=== PATIENT | male | born 1960 | race Caucasian/White ===

== ENCOUNTER 2016-02-23 14:11 | Emergency (ER) | payer SELFPAY ==
[~2016-02-23] VITALS: Ht 177.8 cm; Wt 68.0 kg
[~2016-02-23 14:11] MED LIST: HYDR-1231 PO; PRD20T PO; SULF1TAB35 PO
[2016-02-23 15:28] LABS: BASOPHILS # (AUTO) 0.1 10^3/uL (0.0-0.1); BASOPHILS % (AUTO) 1 % (0-10); EOSINOPHILS # (AUTO) 0.1 10^3/uL (0.0-0.3); EOSINOPHILS % (AUTO) 1 % (0-10); LYMPHOCYTES # (AUTO) 2.2 X 10^3 (1.0-4.0); LYMPHOCYTES % (AUTO) 34 % (12-44); MEAN CORPUSCULAR HEMOGLOBIN 31 PG (25-34); MEAN CORPUSCULAR HGB CONC 34 G/DL (32-36); MEAN CORPUSCULAR VOLUME 92 FL (80-99); MEAN PLATELET VOLUME 13.3 FL (7.4-10.4); MONOCYTES # (AUTO) 1.9 X 10^3 (0.0-1.0); MONOCYTES % (AUTO) 30 % (0-12); NEUTROPHILS # (AUTO) 2.1 X 10^3 (1.8-7.8); NEUTROPHILS % (AUTO) 34 % (42-75); PLATELET COUNT 212 10^3/uL (130-400); RED BLOOD COUNT 4.81 10^6/uL (4.35-5.85); RED CELL DISTRIBUTION WIDTH 14.7 % (10.0-14.5); WHITE BLOOD COUNT 6.3 10^3/uL (4.3-11.0)
--- NOTE | 2016-02-23 15:31 | Diagnostic Imaging Report ---
INDICATION: Cough, congestion. EXAMINATION: Portable erect AP chest at 3:08 p.m. COMPARISON: There are no prior studies available for comparison. FINDINGS: The heart size is within normal limits. The lungs are clear. There is no evidence for failure, pneumonia or for a pleural effusion to suggest an acute abnormality. The mediastinum is not widened. The osseous structures are intact. IMPRESSION: There is no evidence for an acute cardiopulmonary abnormality. Dictated by: Dictated on workstation # [id number]
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
[2016-02-23 15:44] LABS: BAND NEUTROPHILS 1 %; BASOPHILS % (MANUAL) 0 %; EOSINOPHILS % (MANUAL) 2 %; LYMPHOCYTES % (MANUAL) 39 %; NEUTROPHILS % (MANUAL) 36 %
[2016-02-23 15:47] LABS: ALANINE AMINOTRANSFERASE 76 U/L (0-55); ALBUMIN 3.7 G/DL (3.2-4.5); ANION GAP 11 MMOL/L (5-14); ASPARTATE AMINO TRANSFERASE 53 U/L (5-34); BILIRUBIN,TOTAL 0.5 MG/DL (0.1-1.0); BLOOD UREA NITROGEN 10 MG/DL (7-18); BUN/CREATININE RATIO 12; CALCIUM 8.7 MG/DL (8.5-10.1); CARBON DIOXIDE 21 MMOL/L (21-32); CHLORIDE 103 MMOL/L (98-107); CREATININE SERUM 0.82 MG/DL (0.60-1.30); GFR ESTIMATED > 60; GLUCOSE 106 MG/DL (70-105); POTASSIUM 4.1 MMOL/L (3.6-5.0); SODIUM 135 MMOL/L (135-145); TOTAL PROTEIN 7.2 G/DL (6.4-8.2)
[2016-02-23] MEDS ORDERED: AZIT250T PO (16:06)
[2016-02-23] MEDS ORDERED: AZITHROMYCIN 250 MG TAB (ZITHROMAX) PO ONE (16:15)
[2016-02-23 16:24] VITALS: BP 136/99
== END 2016-02-23 16:24 | disposition home or self-care (01) ==
LOC: EDUNIT# 14:11 → ER 14:13
DX: J06.9 Acute upper respiratory infection, unspecified (principal); R42 Dizziness and giddiness; F17.210 Nicotine dependence, cigarettes, uncomplicated
CPT/HCPCS: 36415; 71010; 80053; 85007; 85027

== ENCOUNTER 2016-11-14 10:58 | Inpatient (IN) | payer OTHER ==
[~2016-11-14] VITALS: Ht 177.8 cm; Wt 68.0 kg
[~2016-11-14 10:58] MED LIST changes: +AZIT250T PO
--- OUTSIDE RECORDS SUMMARY | 2016-11-14 11:04 | XMS REPORT ---
Author Author ROSA DORAN [facility] Address [address] [place] [address] Care Team Providers Care Television Presenter Name Role Phone ROSA DORAN Unavailable PROBLEMS Type Condition ICD9-CM Code [id number] Code Onset Dates Condition Status SNOMED Code Problem Schizoaffective disorder, depressive type F25.1 Active 05849651 Problem Low back pain M54.5 Active 425293772 Problem Attention deficit hyperactivity disorder (ADHD), predominantly inattentive type F90.0 Active 96745829 Problem Depressive disorder, not elsewhere classified F32.9 Active 74857887 Problem Panic disorder F41.0 Active 494402608 Problem Sebaceous cyst of penis N48.89 Active 728710100436642 Problem Unspecified psychosis F29 Active 68089935 ALLERGIES Unknown Allergies SOCIAL HISTORY No smoking Hx information available PLAN OF CARE VITAL SIGNS MEDICATIONS Medication Instructions Dosage Frequency Start Date End Date Duration Status Adderall 30 MG Orally 2 times a day 1 tablet 12h 17 Feb, 2016 28 days Active RESULTS No Results PROCEDURES No Known procedures IMMUNIZATIONS No Known Immunizations
--- OUTSIDE RECORDS SUMMARY | 2016-11-14 11:04 | XMS REPORT ---
Author ROSA Cardenas Organization [employer] Address Unknown Phone Unavailable Care Team Providers Care Emissions Inspector Name Role Phone ROSA DORAN CP Unavailable Allergies No Known Allergies Problems Problem Type Condition Code Onset Dates Condition Status Problem Unspecified psychosis F29 Active Problem Schizoaffective disorder, depressive type F25.1 Active Problem Depressive disorder, not elsewhere classified F32.9 Active Problem Panic disorder F41.0 Active Medications Medication Code System Code Instructions Start Date End Date Status Dosage Adderall [facility] [address]-50 30 MG Orally 2 times a day Jan 11, 2015 1 tablet Results No Known Results Summary Purpose [employer] Submission
--- OUTSIDE RECORDS SUMMARY | 2016-11-14 11:04 | XMS REPORT ---
Author Author ROSA DORAN [facility] Address [address] [place] [address] Care Team Providers Care Clinical Laboratory Aides Teacher Name Role Phone ROSA DORAN Unavailable PROBLEMS Type Condition ICD9-CM Code [id number] Code Onset Dates Condition Status SNOMED Code Problem Panic disorder F41.0 Active 606359059 Problem Low back pain M54.5 Active 978017519 Problem Attention deficit hyperactivity disorder (ADHD), predominantly inattentive type F90.0 Active 69528502 Problem Unspecified psychosis F29 Active 45417795 Problem Schizoaffective disorder, depressive type F25.1 Active 57215859 Problem Sebaceous cyst of penis N48.89 Active 546944455492252 Problem Depressive disorder, not elsewhere classified F32.9 Active 44786251 ALLERGIES Unknown Allergies SOCIAL HISTORY No smoking Hx information available PLAN OF CARE VITAL SIGNS MEDICATIONS Medication Instructions Dosage Frequency Start Date End Date Duration Status Adderall 30 MG Orally 2 times a day 1 tablet 12h 16 Jan, 2016 Active RESULTS No Results PROCEDURES No Known procedures IMMUNIZATIONS No Known Immunizations
--- OUTSIDE RECORDS SUMMARY | 2016-11-14 11:04 | XMS REPORT ---
Author Author ROSA DORAN [facility] Address [address] [place] [address] Care Team Providers Care Residential Property Consultant Name Role Phone ROSA DORAN Unavailable PROBLEMS Type Condition ICD9-CM Code OLH69-SC Code Onset Dates Condition Status SNOMED Code Problem Schizoaffective disorder, depressive type F25.1 Active 05920935 Problem Low back pain M54.5 Active 648994603 Problem Attention deficit hyperactivity disorder (ADHD), predominantly inattentive type F90.0 Active 03299048 Problem Depressive disorder, not elsewhere classified F32.9 Active 88428255 Problem Panic disorder F41.0 Active 268710788 Problem Sebaceous cyst of penis N48.89 Active 852471773865306 Problem Unspecified psychosis F29 Active 72247768 ALLERGIES Unknown Allergies SOCIAL HISTORY No smoking Hx information available PLAN OF CARE VITAL SIGNS MEDICATIONS Medication Instructions Dosage Frequency Start Date End Date Duration Status Tramadol HCl 50 mg Orally every 6 hrs 1 tablet as needed 6h Jan, 28 days Active RESULTS No Results PROCEDURES No Known procedures IMMUNIZATIONS No Known Immunizations
--- OUTSIDE RECORDS SUMMARY | 2016-11-14 11:04 | XMS REPORT ---
Author ROSA Cardenas Organization [employer] Address Unknown Phone Unavailable Care Team Providers Care Telephone Instrument Supervisor Name Role Phone ROSA DORAN CP Unavailable Allergies, Adverse Reactions, Alerts Substance Reaction Event Type Penicillin G Potassium Info Not Available Drug Allergy Problems Problem Type Condition Code Onset Dates Condition Status Problem Panic disorder F41.0 Active Assessment Attention deficit hyperactivity disorder (ADHD), predominantly inattentive type F90.0 Active Problem Schizoaffective disorder, depressive type F25.1 Active Assessment Low back pain M54.5 Active Assessment Sciatica, unspecified side M54.30 Active Medications Medication Code System Code Instructions Start Date End Date Status Dosage Adderall [facility] [address]-48 20 MG Orally Once a day Jan 11, 2015 1 tablet in the morning Tramadol HCl [facility] [address]-69 50 MG Orally every 6 hrs Jan 11, 2015 1 tablet as needed Cyclobenzaprine HCl [facility] [address]-27 10 MG Orally 2 times a day Feb 13, 2015 Mar 15, 2015 1 tablet Procedures Procedure Coding System Code Date Office Visit, Est Pt., Level 3 CPT-4 34502 Feb 13, 2015 Vital Signs Date/Time: Feb 13, 2015 Temperature 98.0 F Weight 163 lbs Height 70 in BMI 23.39 Index Blood Pressure Diastolic 74 mmHg Blood Pressure Systolic 138 mmHg Cardiac Monitoring Heart Rate 82 bpm Results No Known Results Summary Purpose [employer] Submission
--- OUTSIDE RECORDS SUMMARY | 2016-11-14 11:04 | XMS REPORT ---
Author Author ROSA DORAN Organization [employer] Address Unknown Phone Unavailable Care Team Providers Care Marinator Name Role Phone ROSA DORAN CP Unavailable Allergies, Adverse Reactions, Alerts Substance Reaction Event Type Penicillin G Potassium Info Not Available Drug Allergy Problems Problem Type Condition Code Onset Dates Condition Status Assessment Low back pain M54.5 Active Problem Depressive disorder, not elsewhere classified 311 Active Problem Impacted cerumen 380.4 Active Problem Hypoglycemia, unspecified 251.2 Active Problem Allergic rhinitis, cause unspecified 477.9 Active Problem Unspecified episodic mood disorder 296.90 Active Problem Lumbago 724.2 Active Problem Other and unspecified hyperlipidemia 272.4 Active Problem Chronic airway obstruction, not elsewhere classified 496 Active Problem Unspecified closed fracture of ankle 824.8 Active Assessment Mood disorder F39 Active Assessment ADHD (attention deficit hyperactivity disorder), inattentive type F90.0 Active Assessment Sciatica, unspecified side M54.30 Active Medications Medication Code System Code Instructions Start Date End Date Status Dosage Wellbutrin SR [facility] [address]-01 150 MG Orally Twice a day Dec 26, 2014 1 tablet Naproxen [facility] [address]-12 500 MG Orally every 12 hrs Dec 26, 2014 1 tablet as needed Cyclobenzaprine HCl [facility] [address]-22 10 MG Orally 2 times a day Dec 26, 2014 Jan 25, 2015 1 tablet Procedures Procedure Coding System Code Date Office Visit, Est Pt., Level 3 CPT-4 87162 Dec 26, 2014 Vital Signs Date/Time: Dec 26, 2014 Temperature 97.0 F Weight 147.4 lbs Height 70 in BMI 21.15 Index Blood Pressure Diastolic 76 mmHg Blood Pressure Systolic 124 mmHg Cardiac Monitoring Heart Rate 64 bpm Results No Known Results Summary Purpose [employer] Submission
--- OUTSIDE RECORDS SUMMARY | 2016-11-14 11:04 | XMS REPORT ---
Author ROSA Cardenas Organization [employer] Address Unknown Phone Unavailable Care Team Providers Care Survey Methodologist Name Role Phone ROSA DORAN CP Unavailable Allergies No Known Allergies Problems Problem Type Condition Code Onset Dates Condition Status Problem Unspecified psychosis F29 Active Problem Schizoaffective disorder, depressive type F25.1 Active Problem Depressive disorder, not elsewhere classified F32.9 Active Problem Panic disorder F41.0 Active Medications Medication Code System Code Instructions Start Date End Date Status Dosage Adderall [facility] [address]-01 30 MG Orally 2 times a day Jan 11, 2015 1 tablet Results No Known Results Summary Purpose [employer] Submission
--- OUTSIDE RECORDS SUMMARY | 2016-11-14 11:04 | XMS REPORT ---
Author ROSA Cardenas Organization [employer] Address Unknown Phone Unavailable Care Team Providers Care Printing Gray Cloth Tender Name Role Phone ROSA DORAN CP Unavailable Allergies No Known Allergies Problems Problem Type Condition Code Onset Dates Condition Status Problem Unspecified psychosis F29 Active Problem Schizoaffective disorder, depressive type F25.1 Active Problem Depressive disorder, not elsewhere classified F32.9 Active Problem Panic disorder F41.0 Active Medications Medication Code System Code Instructions Start Date End Date Status Dosage Adderall [facility] [address]-16 30 MG Orally 2 times a day Jan 11, 2015 1 tablet Results No Known Results Summary Purpose [employer] Submission
--- OUTSIDE RECORDS SUMMARY | 2016-11-14 11:04 | XMS REPORT ---
Author ROSA Cardenas Organization [employer] Address Unknown Phone Unavailable Care Team Providers Care Assistant Chief Of Police Name Role Phone ROSA DORAN CP Unavailable Allergies No Known Allergies Problems Problem Type Condition Code Onset Dates Condition Status Problem Panic disorder F41.0 Active Assessment Attention deficit hyperactivity disorder (ADHD), predominantly inattentive type F90.0 Active Problem Schizoaffective disorder, depressive type F25.1 Active Medications Medication Code System Code Instructions Start Date End Date Status Dosage Tramadol HCl [facility] [address]-24 50 MG Orally every 6 hrs Jan 11, 2015 1 tablet as needed Adderall [facility] [address]-91 20 MG Orally Once a day Jan 11, 2015 1 tablet in the morning Results No Known Results Summary Purpose [employer] Submission
--- OUTSIDE RECORDS SUMMARY | 2016-11-14 11:04 | XMS REPORT ---
Author Author ROSA DORAN [facility] Address [address] [place] [address] Care Team Providers Care Balance Truer Name Role Phone ROSA DORAN Unavailable PROBLEMS Type Condition ICD9-CM Code XAP49-VC Code Onset Dates Condition Status SNOMED Code Problem Depressive disorder, not elsewhere classified F32.9 Active 97889518 Problem Unspecified psychosis F29 Active 30534057 Problem Schizoaffective disorder, depressive type F25.1 Active 62660273 Problem Panic disorder F41.0 Active 914432675 ALLERGIES Unknown Allergies SOCIAL HISTORY No smoking Hx information available PLAN OF CARE VITAL SIGNS MEDICATIONS Medication Instructions Dosage Frequency Start Date End Date Duration Status Adderall 30 MG Orally 2 times a day 1 tablet 12h Jan, Active RESULTS No Results PROCEDURES No Known procedures IMMUNIZATIONS No Known Immunizations
--- OUTSIDE RECORDS SUMMARY | 2016-11-14 11:05 | XMS REPORT ---
Author Author ROSA DORAN [facility] Address [address] [place] [address] Care Team Providers Care Joint Yarner Name Role Phone ANDREEA ROSA Unavailable PROBLEMS Type Condition ICD9-CM Code FQU52-AY Code Onset Dates Condition Status SNOMED Code Problem Schizoaffective disorder, depressive type F25.1 Active 70149292 Problem Low back pain M54.5 Active 547194018 Problem Attention deficit hyperactivity disorder (ADHD), predominantly inattentive type F90.0 Active 21943061 Problem Depressive disorder, not elsewhere classified F32.9 Active 30721239 Problem Panic disorder F41.0 Active 736118007 Problem Sebaceous cyst of penis N48.89 Active 686637532262372 Problem Unspecified psychosis F29 Active 73572987 ALLERGIES No Information SOCIAL HISTORY Never Assessed PLAN OF CARE VITAL SIGNS MEDICATIONS Medication Instructions Dosage Frequency Start Date End Date Duration Status Doxycycline Hyclate 100 mg Orally every 12 hrs 1 tablet 12h Mar, Apr, 10 days Active RESULTS No Results PROCEDURES No Known procedures IMMUNIZATIONS No Known Immunizations MEDICAL (GENERAL) HISTORY Type Description Date Medical History Schizoaffective disorder, depressive type Medical History Panic disorder Medical History ADHD Surgical History facial reconstruction as a child Surgical History splenectomy Surgical History cleft pallet Hospitalization History surgeries Hospitalization History Pt. fell and hit head ER visit [facility] 05/08/15
--- OUTSIDE RECORDS SUMMARY | 2016-11-14 11:05 | XMS REPORT ---
Author Author ROSA DORAN [facility] Address [address] [place] [address] Care Team Providers Care Account Support Manager Name Role Phone ROSA DORAN Unavailable PROBLEMS Type Condition ICD9-CM Code WOI18-OG Code Onset Dates Condition Status SNOMED Code Problem Schizoaffective disorder, depressive type F25.1 Active 60075991 Problem Low back pain M54.5 Active 019795867 Problem Attention deficit hyperactivity disorder (ADHD), predominantly inattentive type F90.0 Active 29288067 Problem Depressive disorder, not elsewhere classified F32.9 Active 63864936 Problem Panic disorder F41.0 Active 087689448 Problem Sebaceous cyst of penis N48.89 Active 578219532424925 Problem Unspecified psychosis F29 Active 29408532 ALLERGIES Substance Reaction Event Type Date Status Penicillin V Potassium Unknown Drug Allergy Mar, Active SOCIAL HISTORY Never Assessed PLAN OF CARE VITAL SIGNS Height 70 in 2016-03-19 Weight 151.7 lbs 2016-03-19 Temperature 97.7 degrees Fahrenheit 2016-03-19 Heart Rate 70 bpm 2016-03-19 Respiratory Rate 18 2016-03-19 BMI 21.76 kg/m2 2016-03-19 Blood pressure systolic 134 mmHg 2016-03-19 Blood pressure diastolic 72 mmHg 2016-03-19 MEDICATIONS Medication Instructions Dosage Frequency Start Date End Date Duration Status Bactrim DS 800-160 MG Orally Twice a day 1 tablet 12h Mar, Apr, 28 days Active Tramadol HCl 50 mg Orally every 6 hrs 1 tablet as needed 6h Jan, 28 days Active Chlorzoxazone 500 MG Orally Three times a day 1 tablet 8h Active Vyvanse 60 mg Orally Once a day 1 capsule in the morning 24h Mar, Active RESULTS No Results PROCEDURES No Known [...]
--- OUTSIDE RECORDS SUMMARY | 2016-11-14 11:05 | XMS REPORT ---
Author Author ROSA DORAN [facility] Address [address] [place] [address] Care Team Providers Care Plastic Mould Maker Name Role Phone ROSA DORAN Unavailable PROBLEMS Type Condition ICD9-CM Code [id number] Code Onset Dates Condition Status SNOMED Code Problem Schizoaffective disorder, depressive type F25.1 Active 41376283 Problem Low back pain M54.5 Active 975618120 Problem Attention deficit hyperactivity disorder (ADHD), predominantly inattentive type F90.0 Active 55824009 Problem Depressive disorder, not elsewhere classified F32.9 Active 15169551 Problem Panic disorder F41.0 Active 758807955 Problem Sebaceous cyst of penis N48.89 Active 402350803742128 Problem Unspecified psychosis F29 Active 69026310 ALLERGIES No Information SOCIAL HISTORY Never Assessed PLAN OF CARE VITAL SIGNS MEDICATIONS Unknown Medications RESULTS Name Result Date Reference Range [employer] 2016-03-20 PROCEDURES Procedure Date Ordered Result Body Site No Charge Mar 20, 2016 IMMUNIZATIONS No Known Immunizations MEDICAL (GENERAL) HISTORY Type Description Date Medical History Schizoaffective disorder, depressive type Medical History Panic disorder Medical History ADHD Surgical History facial reconstruction as a child Surgical History splenectomy Surgical History cleft pallet Hospitalization History surgeries Hospitalization History Pt. fell and hit head ER visit [facility] 05/08/15
--- OUTSIDE RECORDS SUMMARY | 2016-11-14 11:05 | XMS REPORT ---
Author ROSA Cardenas Organization [employer] Address Unknown Phone Unavailable Care Team Providers Care Photography Instructor Name Role Phone ROSA DORAN CP Unavailable Allergies, Adverse Reactions, Alerts Substance Reaction Event Type Penicillin G Potassium Info Not Available Drug Allergy Problems Problem Type Condition Code Onset Dates Condition Status Assessment Bilateral low back pain with sciatica, sciatica laterality unspecified M54.40 Active Assessment ADHD (attention deficit hyperactivity disorder) F90.9 Active Assessment Mood disorder F39 Active Assessment Tobacco abuse Z72.0 Active Medications Medication Code System Code Instructions Start Date End Date Status Dosage Adderall [facility] [address]-35 10 MG Orally Once a day Jan 11, 2015 1 tablet in the morning Tramadol HCl [facility] [address]-02 50 MG Orally every 6 hrs Jan 11, 2015 1 tablet as needed Cyclobenzaprine HCl [facility] [address]-58 10 MG Orally 2 times a day Dec 26, 2014 Jan 25, 2015 1 tablet Procedures Procedure Coding System Code Date Office Visit, New Pt., Level 3 CPT-4 64162 Jan 11, 2015 Vital Signs Date/Time: Jan 11, 2015 Temperature 97.7 F Weight 155 lbs Height 70 in BMI 22.24 Index Blood Pressure Diastolic 76 mmHg Blood Pressure Systolic 130 mmHg Cardiac Monitoring Heart Rate 76 bpm Results No Known Results Summary Purpose [employer]Works Submission
--- OUTSIDE RECORDS SUMMARY | 2016-11-14 11:05 | XMS REPORT ---
Author ROSIBEL Santana [facility] [employer] Address Unknown Phone Unavailable Care Team Providers Care Paper Bag Machine Operator Name Role Phone ROSIBEL BAUMAN Unavailable Allergies No Known Allergies Problems Problem Type Condition Code Onset Dates Condition Status Problem Panic disorder F41.0 Active Assessment Schizoaffective disorder, depressive type F25.1 Active Problem Schizoaffective disorder, depressive type F25.1 Active Assessment Panic disorder F41.0 Active Medications No Known Medications Procedures Procedure Coding System Code Date Psychotherapy, patient &/family, 45 minutes, established patient CPT-4 75744 Feb 13, 2015 Results No Known Results Summary Purpose [employer]Works Submission
--- OUTSIDE RECORDS SUMMARY | 2016-11-14 11:05 | XMS REPORT ---
Author ROSA Cardenas Organization [employer] Address Unknown Phone Unavailable Care Team Providers Care Oncology Consultant Name Role Phone ROSA DORAN CP Unavailable Allergies No Known Allergies Problems Problem Type Condition Code Onset Dates Condition Status Problem Panic disorder F41.0 Active Problem Schizoaffective disorder, depressive type F25.1 Active Medications Medication Code System Code Instructions Start Date End Date Status Dosage Adderall [facility] [address]-54 30 MG Orally 2 times a day Jan 11, 2015 1 tablet Results No Known Results Summary Purpose [employer]Works Submission
--- OUTSIDE RECORDS SUMMARY | 2016-11-14 11:05 | XMS REPORT ---
Author Author ROSA DORAN [facility] Address [address] [place] [address] Care Team Providers Care Room Worker Name Role Phone ROSA DORAN Unavailable PROBLEMS Type Condition ICD9-CM Code [id number] Code Onset Dates Condition Status SNOMED Code Problem Schizoaffective disorder, depressive type F25.1 Active 99938673 Problem Low back pain M54.5 Active 726212397 Problem Attention deficit hyperactivity disorder (ADHD), predominantly inattentive type F90.0 Active 53866515 Problem Depressive disorder, not elsewhere classified F32.9 Active 82798785 Problem Panic disorder F41.0 Active 738507605 Problem Sebaceous cyst of penis N48.89 Active 533087312186924 Problem Unspecified psychosis F29 Active 67050813 ALLERGIES No Information SOCIAL HISTORY Never Assessed PLAN OF CARE VITAL SIGNS MEDICATIONS Medication Instructions Dosage Frequency Start Date End Date Duration Status Vyvanse 60 mg Orally Once a day 1 capsule in the morning 24h Apr, 28 days Active RESULTS No Results PROCEDURES [...]
--- OUTSIDE RECORDS SUMMARY | 2016-11-14 11:05 | XMS REPORT ---
Author Author ROSA DORAN [facility] Address [address] [place] [address] Care Team Providers Care Radio Assembler Name Role Phone ANDREEA ROSA Unavailable PROBLEMS Type Condition ICD9-CM Code [id number] Code Onset Dates Condition Status SNOMED Code Problem Schizoaffective disorder, depressive type F25.1 Active 56529314 Problem Low back pain M54.5 Active 323329468 Problem Attention deficit hyperactivity disorder (ADHD), predominantly inattentive type F90.0 Active 07641205 Problem Depressive disorder, not elsewhere classified F32.9 Active 49471107 Problem Panic disorder F41.0 Active 701314346 Problem Sebaceous cyst of penis N48.89 Active [id number] Problem Unspecified psychosis F29 Active 42269827 ALLERGIES No Information SOCIAL HISTORY Never Assessed [...]
--- OUTSIDE RECORDS SUMMARY | 2016-11-14 11:05 | XMS REPORT ---
Author ROSIBEL Santana [facility] e[employer] Address Unknown Phone Unavailable Care Team Providers Care Campus Security Officer Name Role Phone ROSIBEL BAUMAN Unavailable Allergies No Known Allergies Problems Problem Type Condition Code Onset Dates Condition Status Problem Panic disorder F41.0 Active Assessment Schizoaffective disorder, depressive type F25.1 Active Problem Schizoaffective disorder, depressive type F25.1 Active Assessment Panic disorder F41.0 Active Medications Medication Code System Code Instructions Start Date End Date Status Dosage Adderall [facility] [address]-83 10 MG Orally Once a day Jan 11, 2015 1 tablet in the morning Tramadol HCl [facility] [address]-20 50 MG Orally every 6 hrs Jan 11, 2015 1 tablet as needed Procedures Procedure Coding System Code Date Psych diagnostic evaluation, established patient CPT-4 24801 Feb 05, 2015 Results No Known Results Summary Purpose [employer] Submission
--- OUTSIDE RECORDS SUMMARY | 2016-11-14 11:05 | XMS REPORT ---
Author AIRAM García [facility] e[employer] Address Unknown Phone Unavailable Care Team Providers Care Therapy Tech Name Role Phone AIRAM MEHTA CP Unavailable Allergies No Known Allergies Problems Problem Type Condition Code Onset Dates Condition Status Problem Panic disorder F41.0 Active Problem Schizoaffective disorder, depressive type F25.1 Active Medications No Known Medications Results No Known Results Summary Purpose [employer]ClinicalWorks Submission
--- OUTSIDE RECORDS SUMMARY | 2016-11-14 11:05 | XMS REPORT ---
Author ROSA Cardenas Organization [employer] Address Unknown Phone Unavailable Care Team Providers Care Box Inspector Name Role Phone ROSA DORAN CP Unavailable Allergies No Known Allergies Problems Problem Type Condition Code Onset Dates Condition Status Problem Unspecified psychosis F29 Active Problem Schizoaffective disorder, depressive type F25.1 Active Problem Depressive disorder, not elsewhere classified F32.9 Active Problem Panic disorder F41.0 Active Medications Medication Code System Code Instructions Start Date End Date Status Dosage Adderall [facility] [address]-55 30 MG Orally 2 times a day Jan 11, 2015 1 tablet Tramadol HCl [facility] [address]-66 50 MG Orally every 6 hrs Jan 11, 2015 1 tablet as needed Results No Known Results Summary Purpose eClinicalWorks Submission
[2016-11-14] MEDS ORDERED: NS IV 1000 ML 1,000 ML IV ONE ×2 (11:43→14:03)
[2016-11-14] MEDS ORDERED: ONDANSETRON 4 MG/2 ML (SDV) Z0FRAN IVP ONE (11:45)
[2016-11-14] MEDS ORDERED: DIAZEPAM INJ 10 MG/2 ML (VALIUM) SYR IV ONE (11:45)
[2016-11-14 11:52] LABS: BASOPHILS % (AUTO) 0 % (0-10); EOSINOPHILS # (AUTO) 0.1 10^3/uL (0.0-0.3); EOSINOPHILS % (AUTO) 1 % (0-10); LYMPHOCYTES # (AUTO) 1.7 X 10^3 (1.0-4.0); LYMPHOCYTES % (AUTO) 13 % (12-44); MEAN CORPUSCULAR HEMOGLOBIN 31 PG (25-34); MEAN CORPUSCULAR HGB CONC 33 G/DL (32-36); MEAN CORPUSCULAR VOLUME 93 FL (80-99); MEAN PLATELET VOLUME 13.8 FL (7.4-10.4); MONOCYTES # (AUTO) 0.9 X 10^3 (0.0-1.0); MONOCYTES % (AUTO) 7 % (0-12); NEUTROPHILS # (AUTO) 10.1 X 10^3 (1.8-7.8); NEUTROPHILS % (AUTO) 79 % (42-75); PLATELET COUNT 226 10^3/uL (130-400); RED BLOOD COUNT 5.42 10^6/uL (4.35-5.85); RED CELL DISTRIBUTION WIDTH 14.2 % (10.0-14.5); WHITE BLOOD COUNT 12.9 10^3/uL (4.3-11.0)
[2016-11-14 12:07] LABS: ALANINE AMINOTRANSFERASE 26 U/L (0-55); ALBUMIN 4.6 GM/DL (3.2-4.5); ALCOHOL < 10 MG/DL (<10); ANION GAP 9 MMOL/L (5-14); ASPARTATE AMINO TRANSFERASE 33 U/L (5-34); BILIRUBIN,TOTAL 0.7 MG/DL (0.1-1.0); BLOOD UREA NITROGEN 13 MG/DL (7-18); BUN/CREATININE RATIO 13; CALCIUM 10.1 MG/DL (8.5-10.1); CARBON DIOXIDE 28 MMOL/L (21-32); CHLORIDE 102 MMOL/L (98-107); CREATININE SERUM 1.02 MG/DL (0.60-1.30); GFR ESTIMATED > 60; GLUCOSE 117 MG/DL (70-105); LIPASE 11 U/L (8-78); POTASSIUM 4.2 MMOL/L (3.6-5.0); SODIUM 139 MMOL/L (135-145); TOTAL PROTEIN 9.2 GM/DL (6.4-8.2)
[2016-11-14] MEDS ORDERED: TRAM50TA2 PO (12:08)
[2016-11-14] MEDS ORDERED: DEXT30TA12 PO (12:08)
[2016-11-14 12:46] VITALS: BP 146/92
[2016-11-14] MEDS ORDERED: NS 100 ML (IVPB) BAG IV ONE (13:00)
[2016-11-14] MEDS ORDERED: IOHEXOL 350 MG/ML 100 ML (OMNIPAQUE 350) VIAL IV ONE (13:00)
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
--- NOTE | 2016-11-14 13:41 | Diagnostic Imaging Report ---
PROCEDURE: CT abdomen and pelvis with contrast. TECHNIQUE: Multiple contiguous axial images were obtained through the abdomen and pelvis after administration of intravenous contrast. INDICATION: Abdominal pain. There are no prior studies available for comparison. There are numerous dilated gas and fluid-filled segments of small bowel present. This does suggest a small bowel obstruction. The precise transition point is not certain but I suspect it is in the distal small bowel. If further study is desired, a contrast small bowel exam would be recommended. There is some fluid and gas in the colon. The stomach itself is only partially filled with fluid and gas. There are numerous small gallstones within the gallbladder. There may be a trace amount of fluid about the gallbladder. There is no sign of an acute cholecystitis however. The liver, adrenals, kidneys, pancreas, aorta and inferior vena cava show no sign of an acute abnormality. There is a roughly 3 CM cyst associated with the right kidney. This cyst has a generally benign appearance. By history the spleen is surgically absent. The appendix was not well-visualized. The urinary bladder and prostate gland are grossly unremarkable. The bone windows show post traumatic change involving the left ilium. There is no acute bony abnormality noted. The lung bases are clear. IMPRESSION: 1. The findings do suggest a small bowel obstruction. Recommendations as above. 2. There is no acute abnormality of the abdomen or pelvis otherwise. 3. There is cholelithiasis without acute cholecystitis. 4. The spleen is surgically absent. 5. There are post traumatic changes involving the left ilium. 6. These results were discussed with LINO Soriano. Dictated by: Dictated on workstation # [id number]
[2016-11-14] MEDS ORDERED: fentaNYL INJECTION 100 MCG/2 ML AMP IV PRN (15:45)
[2016-11-14] MEDS ORDERED: ONDANSETRON 4 MG/2 ML (SDV) Z0FRAN IV PRN (15:45)
[2016-11-14] MEDS ORDERED: PROMETHAZINE INJ 25 MG/ML (PHENERGAN) AMP IV PRN (15:45)
[2016-11-14] MEDS ORDERED: KETOROLAC 30 MG/ML VIAL IV PRN (15:45)
[2016-11-14] MEDS ORDERED: CATHETER FLUSH 10 ML SYR IV PRN (15:45)
[2016-11-14] MEDS ORDERED: DIAZEPAM INJ 10 MG/2 ML (VALIUM) SYR IV PRN (15:45)
[2016-11-14] MEDS: NS IV 1000 ML 1,000 ML IV SCH ×2 (16:14→20:46)
[2016-11-14 16:20] VITALS: BP 166/92
[2016-11-14] MEDS: FAMOTIDINE 20MG/2ML IV (PEPCID) IV SCH (16:30)
[2016-11-14 20:57] VITALS: BP 126/79
[2016-11-14 23:03] LABS: BILIRUBIN,URINE NEGATIVE (NEGATIVE); KETONES,URINE 2+ (NEGATIVE); LEUKOCYTE ESTERASE ,URINE NEGATIVE (NEGATIVE); NITRITE,URINE NEGATIVE (NEGATIVE); PH,URINE 5 (5-9); PROTEIN,URINE NEGATIVE (NEGATIVE); UROBILINOGEN,URINE NORMAL (NORMAL)
[2016-11-14 23:11] LABS: WBC,URINE RARE /HPF
[2016-11-15] VITALS: BP 144/74
[2016-11-15 04:00] VITALS: BP 144/73
[2016-11-15] MEDS: NS IV 1000 ML 1,000 ML IV SCH (04:09)
[2016-11-15] MEDS: FAMOTIDINE 20MG/2ML IV (PEPCID) IV SCH (04:09)
[2016-11-15 05:30] LABS: BASOPHILS # (AUTO) 0.1 10^3/uL (0.0-0.1); BASOPHILS % (AUTO) 0 % (0-10); EOSINOPHILS # (AUTO) 0.4 10^3/uL (0.0-0.3); EOSINOPHILS % (AUTO) 3 % (0-10); LYMPHOCYTES # (AUTO) 3.1 X 10^3 (1.0-4.0); LYMPHOCYTES % (AUTO) 27 % (12-44); MEAN CORPUSCULAR HEMOGLOBIN 31 PG (25-34); MEAN CORPUSCULAR HGB CONC 33 G/DL (32-36); MEAN CORPUSCULAR VOLUME 95 FL (80-99); MONOCYTES # (AUTO) 1.5 X 10^3 (0.0-1.0); MONOCYTES % (AUTO) 13 % (0-12); NEUTROPHILS # (AUTO) 6.6 X 10^3 (1.8-7.8); NEUTROPHILS % (AUTO) 57 % (42-75); PLATELET COUNT 199 10^3/uL (130-400); RED BLOOD COUNT 4.49 10^6/uL (4.35-5.85); RED CELL DISTRIBUTION WIDTH 14.2 % (10.0-14.5); WHITE BLOOD COUNT 11.6 10^3/uL (4.3-11.0)
[2016-11-15 05:47] LABS: ALANINE AMINOTRANSFERASE 19 U/L (0-55); ALBUMIN 3.3 GM/DL (3.2-4.5); ANION GAP 9 MMOL/L (5-14); ASPARTATE AMINO TRANSFERASE 22 U/L (5-34); BILIRUBIN,TOTAL 0.8 MG/DL (0.1-1.0); BLOOD UREA NITROGEN 14 MG/DL (7-18); BUN/CREATININE RATIO 17; CALCIUM 8.5 MG/DL (8.5-10.1); CARBON DIOXIDE 22 MMOL/L (21-32); CHLORIDE 108 MMOL/L (98-107); CREATININE SERUM 0.84 MG/DL (0.60-1.30); GFR ESTIMATED > 60; GLUCOSE 73 MG/DL (70-105); SODIUM 139 MMOL/L (135-145); TOTAL PROTEIN 6.3 GM/DL (6.4-8.2)
[2016-11-15] MEDS ORDERED: INFLUENZA TRIvalent 2017-2018 0.5 ML/45 MCG SYR IM ONE ×2 (07:30→09:56)
[2016-11-15 08:00] VITALS: BP 117/71
[2016-11-15] MEDS ORDERED: DIAZEPAM 5 MG (VALIUM) TABLET PO PRN (08:15)
--- NOTE | 2016-11-15 09:48 | Short Stay Summary ---
HPI History of Present Illness: patient presented to the emergency room with complaint of 3-4 days of nausea vomiting diarrhea, he reports that he is unable to keep anything down, even fluids. She denies any sick contacts, fever or chills, abdominal pain other than intermittent cramping. He was given IV fluids in the ED as well as abdominal imaging which showed potential small bowel obstruction. The decision was made to place in observation on the fourth floor to monitor him closely. At this time he has been able to tolerate sips of clear liquid and ice chips in the ED and we will refrain from placing an NG tube unless the patient has recurrence of his nausea and vomiting. We will have him remain nothing by mouth with ice chips only until he is seen in the morning. On the morning of discharge the patient is seen and he reports that he is very hungry and feeling much better. She reports that he has had no nausea or vomiting since being placed on observation on the floor and that he would like to try any breakfast. The patient states if he is able to tolerate by mouth intake that he would like to be able to be discharged today. Source: patient, RN/MD, RN notes reviewed Exam Limitations: no limitations Date seen by provider: Nov 15, 2016 Time Seen by Provider: 08:00 Attending Physician Elizabeth Lakhani DO PCP [facility] Date of Admission Nov 14, 2016 at 14:08 Home Medications Home Medications Reviewed patient Home Medication Reconciliation Form Allergies Coded Allergies: Penicillins (Verified Allergy, Mild, 01/27/14) [id number]-[id number] Hx Patient Social History Marrital Status: single Employed/Student: unemployed Alcohol Use: Occasionally Uses Recreational Drug Use: No Smoking Status: Current Everyday Smoker 2nd Hand Smoke Exposure: Yes Recent Foreign Travel: No Contact w/other who traveled: No Recent Hopitalizations: No Recent Infectious Disease Expo: No Physical Abuse Screen: No Sexual Abuse: No Immunizations Up To Date Tetanus Booster (TDap): Unknown Past Medical History tobacco abuse ADHD Anxiety Family Medical History Significant Family History: No Pertinent Family Hx Review of Systems (CHC) Constitutional: see HPI, No dizziness, No fever EENTM: No hearing loss, No tearing, No vision loss, No throat swelling Respiratory: No cough, No dyspnea on exertion, No hemoptysis, No short of breath Cardiovascular: No chest pain, No edema, No palpitations Gastrointestinal: abdominal pain, diarrhea, loss of appetite, nausea, vomiting Genitourinary: no symptoms reported Musculoskeletal: no symptoms reported Skin: no symptoms reported Psychiatric/Neurological: No Symptoms Reported Reviewed Test Results Reviewed Test Results Lab See ED record for lab results done on admission, repeat lab work in a.m. shows improvement over admission labs. Radiology CT scan of abdomen shows potential small bowel obstruction Physical Exam-(CHC) Physical Exam Vital Signs VS - Last 72 Hours, by Label 11/14/16 11/14/16 11/14/16 11/14/16 11:03 12:46 14:48 15:00 Temp 96.9 Pulse 74 56 60 Resp 18 18 18 B/P (MAP) 146/102 146/92 Pulse Ox 98 100 98 98 O2 Delivery Room Air Room Air Room Air 11/14/16 11/14/16 11/15/16 11/15/16 16:20 20:57 00:00 04:00 Temp 98.5 98.1 98.0 98.2 Pulse 72 67 64 76 Resp 22 22 18 18 B/P (MAP) 166/92 126/79 144/74 144/73 Pulse Ox 98 98 98 98 O2 Delivery Room Air Room Air Room Air Room Air 11/15/16 08:00 Temp 98.4 Pulse 64 Resp 20 B/P (MAP) 117/71 Pulse Ox 100 O2 Delivery Room Air Capillary Refill : Less Than 3 Seconds General Appearance: WD/WN, no apparent distress Eyes: Bilateral Eye EOMI HEENT: PERRL/EOMI, No scleral icterus (R), No scleral icterus (L), No photophobia Neck: non-tender, full range of motion, supple, normal inspection Respiratory: chest non-tender, lungs clear, normal breath sounds, no respiratory distress, no accessory muscle use Cardiovascular: normal peripheral pulses, regular rate, rhythm, no edema, no JVD Gastrointestinal: normal bowel sounds, non tender, soft, no organomegaly, no pulsatile mass, No distended, No guarding, No rebound, No tenderness, No mass, No hepatomegaly Back: normal inspection, no CVA tenderness, no vertebral tenderness Extremities: normal range of motion, non-tender, no calf tenderness 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, no motor/sensory deficits, alert, normal mood/affect, oriented x 3 Skin: normal color, warm/dry Lymphatic: no adenopathy Short Stay Diagnosis Discharge Diagnosis-Short Stay Admission Diagnosis abdominal pain Possible small bowel obstruction Nausea, vomiting, diarrhea Final Discharge Diagnosis abdominal pain-resolved Possible small bowel obstruction-ruled out based on patient's ability to tolerate by mouth intake as well as have normal bowel movements while in the hospital excellent nausea vomiting diarrhea-resolved Conclusion Plan we will allow the patient to have a clear liquid diet for a late breakfast this morning and then advance as tolerated to make sure that he is able to tolerate by mouth intake. If the patient is able to tolerate by mouth intake, the patient may be discharged home with plans to follow-up with his primary care provider next week. This is been discussed at length with the patient and he is in agreement with this plan. Clinical Quality Measures DVT/VTE Risk/Contraindication: Risk Factor Score Per Nursin RFS Level Per Nursing on Admit: 2=Moderate ELIZABETH LAKHANI DO Nov 15, 2016 09:47
[2016-11-15] MEDS ORDERED: DIAZ5TAB3 PO (10:01)
--- NOTE | 2016-11-15 10:30 | Diagnostic Imaging Report ---
INDICATION: Small bowel obstruction. FINDINGS: The lung bases are clear. The bowel gas pattern is nonspecific. There is no free air. There are no abnormal abdominal calcifications. IMPRESSION: Nonspecific bowel gas pattern. Dictated by: Dictated on workstation # [id number]
[2016-11-15 12:00] VITALS: BP 145/81
[2016-11-15 14:46] VITALS: BP 145/80
--- NOTE | 2016-11-20 08:47 | Physician Query-Final Dx ---
[facility] 11/20/16 0846: Final Diagnosis Give Final Diagnosis Please give Final Diagnosis KIMMIE LAKHANI DO 12/01/16 0806: Final Diagnosis Give Final Diagnosis abdominal pain Nausea vomiting diarrhea Possible small bowel obstruction [facility] Nov 20, 2016 08:46 KIMMIE LAKHANI DO Dec 01, 2016 08:06
== END 2016-11-15 14:45 | disposition home or self-care (01) | DRG 390 ==
LOC: EDUNIT# 10:58 → ER 11:00 → 4TH 14:08
PROVIDERS: ADMIT Family Medicine; ATTEND Family Medicine
DX: K56.609 Unspecified intestinal obstruction, unspecified as to partial versus complete obstruction (principal); K80.20 Calculus of gallbladder without cholecystitis without obstruction; J44.9 Chronic obstructive pulmonary disease, unspecified; F17.210 Nicotine dependence, cigarettes, uncomplicated; F41.9 Anxiety disorder, unspecified; F90.9 Attention-deficit hyperactivity disorder, unspecified type; R19.7 Diarrhea, unspecified; R11.2 Nausea with vomiting, unspecified
CPT/HCPCS: 36415; 74020; 74177; 80053; 80306; 80320; 81000; 83690; 85025; 96361; 96374; 96375

== ENCOUNTER 2016-11-18 08:31 | Inpatient (IN) | payer OTHER ==
[~2016-11-18] VITALS: Ht 177.8 cm; Wt 68.0 kg
[~2016-11-18 08:31] MED LIST changes: +DEXT30TA12 PO; +DIAZ5TAB3 PO; +TRAM50TA2 PO
[2016-11-18 10:18] LABS: BASOPHILS % (AUTO) 0 % (0-10); EOSINOPHILS # (AUTO) 0.3 10^3/uL (0.0-0.3); EOSINOPHILS % (AUTO) 2 % (0-10); LYMPHOCYTES # (AUTO) 2.2 X 10^3 (1.0-4.0); LYMPHOCYTES % (AUTO) 18 % (12-44); MEAN CORPUSCULAR HEMOGLOBIN 31 PG (25-34); MEAN CORPUSCULAR HGB CONC 34 G/DL (32-36); MEAN CORPUSCULAR VOLUME 93 FL (80-99); MONOCYTES # (AUTO) 1.8 X 10^3 (0.0-1.0); MONOCYTES % (AUTO) 15 % (0-12); NEUTROPHILS # (AUTO) 7.7 X 10^3 (1.8-7.8); NEUTROPHILS % (AUTO) 64 % (42-75); PLATELET COUNT 170 10^3/uL (130-400); RED BLOOD COUNT 5.02 10^6/uL (4.35-5.85)
[2016-11-18 10:33] LABS: ALANINE AMINOTRANSFERASE 23 U/L (0-55); ALBUMIN 4.4 GM/DL (3.2-4.5); ANION GAP 6 MMOL/L (5-14); ASPARTATE AMINO TRANSFERASE 28 U/L (5-34); BILIRUBIN,TOTAL 0.6 MG/DL (0.1-1.0); BLOOD UREA NITROGEN 14 MG/DL (7-18); BUN/CREATININE RATIO 16; CALCIUM 9.7 MG/DL (8.5-10.1); CARBON DIOXIDE 29 MMOL/L (21-32); CHLORIDE 102 MMOL/L (98-107); CREATININE SERUM 0.87 MG/DL (0.60-1.30); GFR ESTIMATED > 60; GLUCOSE 98 MG/DL (70-105); POTASSIUM 4.4 MMOL/L (3.6-5.0); SODIUM 137 MMOL/L (135-145); TOTAL PROTEIN 8.5 GM/DL (6.4-8.2)
--- NOTE | 2016-11-18 10:54 | Diagnostic Imaging Report ---
EXAMINATION: Supine view of the abdomen. INDICATION: Abdominal pain. FINDINGS: There is moderate dilatation of small bowel loops seen in the mid abdomen, worse than on the study of 11/15/2016. There is a moderate amount of fecal material noted in the rectum. Tiny calcifications in the right side of the pelvis are seen. IMPRESSION: There is increased dilatation of small bowel loops in the central aspect of the abdomen which may relate to worsening small bowel obstruction. Dictated by: Dictated on workstation # [id number]
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
[2016-11-18 11:48] LABS: BILIRUBIN,URINE NEGATIVE (NEGATIVE); KETONES,URINE NEGATIVE (NEGATIVE); LEUKOCYTE ESTERASE ,URINE 1+ (NEGATIVE); NITRITE,URINE NEGATIVE (NEGATIVE); PH,URINE 6 (5-9); PROTEIN,URINE 1+ (NEGATIVE); UROBILINOGEN,URINE 1 MG/DL (NORMAL)
[2016-11-18 12:00] VITALS: BP 140/87
[2016-11-18 12:03] LABS: CALCIUM OXALATE CRYSTALS,UR LARGE /LPF
[2016-11-18] MEDS ORDERED: CATHETER FLUSH 10 ML SYR IV PRN (12:15)
[2016-11-18] MEDS ORDERED: ONDANSETRON 4 MG/2 ML (SDV) Z0FRAN IV PRN (12:30)
[2016-11-18] MEDS: NS IV 1000 ML 1,000 ML IV SCH ×2 (13:08→20:51)
[2016-11-18] MEDS: fentaNYL INJECTION 100 MCG/2 ML AMP IVP PRN ×3 (13:09→19:02)
[2016-11-18] MEDS ORDERED: DIAZ5TAB3 PO (15:33)
[2016-11-18 16:22] VITALS: BP 152/79
[2016-11-18] MEDS ORDERED: FLEET ENEMA ADULT 1 EA BTL PR PRN (16:30)
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
[2016-11-18 20:00] VITALS: BP 137/74
[2016-11-18] MEDS: POLYETHYLENE GLYCOL 17 GM (MIRALAX) PACK PO SCH (20:51)
[2016-11-18] MEDS: PANTOPRAZOLE 40 MG/10 ML (PROTONIX) VIAL IV SCH (20:51)
[2016-11-19 00:15] VITALS: BP 111/61
[2016-11-19] MEDS: fentaNYL INJECTION 100 MCG/2 ML AMP IVP PRN ×3 (03:08→20:48)
[2016-11-19] MEDS: NS IV 1000 ML 1,000 ML IV SCH ×5 (03:09→23:40)
[2016-11-19 04:11] VITALS: BP 130/78
[2016-11-19 07:44] VITALS: BP 125/72
--- NOTE | 2016-11-19 07:58 | Diagnostic Imaging Report ---
INDICATION: Small bowel obstruction KUB at 7:05 AM There is gas present throughout the colon. The small bowel is less distended. There is one loop of small bowel in the upper abdomen that is mildly prominent. IMPRESSION: Resolving small bowel obstruction. Dictated by: Dictated on workstation # [id number]
[2016-11-19] MEDS: POLYETHYLENE GLYCOL 17 GM (MIRALAX) PACK PO SCH ×2 (08:33→21:39)
[2016-11-19] MEDS: PANTOPRAZOLE 40 MG/10 ML (PROTONIX) VIAL IV SCH ×2 (08:34→21:38)
[2016-11-19 12:00] VITALS: BP 118/72
[2016-11-19 15:50] VITALS: BP 123/70
--- NOTE | 2016-11-19 17:33 | Progress Note (SOAP) ---
Subjective Date Seen by Provider: Nov 19, 2016 Time Seen by Provider: 17:00 Subjective/Events-last exam doing better, having small hard stools. no abdominal distention or pain. tolerating clears. Objective Exam Vital Signs Date Time Temp Pulse Resp B/P (MAP) Pulse Ox O2 Delivery O2 Flow Rate FiO2 11/19/16 15:50 98.6 58 20 123/70 99 Room Air 11/19/16 12:00 98.4 55 20 118/72 99 Room Air 11/19/16 07:44 97.8 55 20 125/72 100 Room Air 11/19/16 04:11 96.9 56 16 130/78 99 Room Air 11/19/16 00:15 97.0 57 18 111/61 99 Room Air 11/18/16 20:00 98.2 63 18 137/74 98 Room Air I & O 11/20/16 07:00 Intake Total 3900 ml Balance 3900 ml Capillary Refill : Less Than 3 SecondsLess Than 3 Seconds General Appearance: No Apparent Distress HEENT: PERRL/EOMI Neck: Full Range of Motion Respiratory: Chest Non Tender, Normal Breath Sounds Cardiovascular: Regular Rate, Rhythm Gastrointestinal: normal bowel sounds, non tender, soft Extremity: Normal Capillary Refill Neurologic/Psychiatric: Alert, Oriented x3 Skin: Normal Color Lymphatic: No Adenopathy Assessment/Plan Assessment/Plan Assess & Plan/Chief Complaint constipation secondary to diet and meds. start mg citrate. when significant BM can d/c home. Clinical Quality Measures DVT/VTE Risk/Contraindication: Risk Factor Score Per Nursin RFS Level Per Nursing on Admit: 4+=Very High WALLY LEAL MD Nov 19, 2016 17:33
--- NOTE | 2016-11-19 17:36 | Discharge Inst-Surgical ---
D/C Lap Instructions-MEL Follow Up PRN Activity as tolerated N High Fiber Diet 35g or more per day Avoid Alcohol, Caffeine, Spicy [place]an and Acid foods. Drink 128 fluid oz or more of fluids per day. Symptoms to Report: Fever over 101 degree F, Nausea/Vomiting If any problems/questions: Contact your physician or go to Emergency Room WALLY LEAL MD Nov 19, 2016 17:36
[2016-11-19 19:25] VITALS: BP 113/68
[2016-11-19] MEDS: MAGNESIUM CITRATE 300 ML BTL PO PRN (20:48)
[2016-11-20] VITALS: BP 113/63
[2016-11-20] MEDS: fentaNYL INJECTION 100 MCG/2 ML AMP IVP PRN (00:56)
[2016-11-20] MEDS: NS IV 1000 ML 1,000 ML IV SCH (06:25)
[2016-11-20] MEDS: MAGNESIUM CITRATE 300 ML BTL PO PRN (06:25)
[2016-11-20 08:00] VITALS: BP 138/70
[2016-11-20] MEDS: POLYETHYLENE GLYCOL 17 GM (MIRALAX) PACK PO SCH (09:16)
[2016-11-20] MEDS: PANTOPRAZOLE 40 MG/10 ML (PROTONIX) VIAL IV SCH (09:16)
--- NOTE | 2016-11-20 11:37 | Progress Note (SOAP) ---
Subjective Date Seen by Provider: Nov 20, 2016 Time Seen by Provider: 11:00 Subjective/Events-last exam Patient reports doing fine but no BM yet. No N/V. Tolerating diet. Denies any abdominal pain. Ambulating. No fever/chills. Review of Systems General: No Chills, No Night Sweats Gastrointestinal: Constipation, No: Nausea, Vomiting, Abdominal Pain Objective Exam Vital Signs Date Time Temp Pulse Resp B/P (MAP) Pulse Ox O2 Delivery O2 Flow Rate FiO2 11/20/16 08:00 98.4 61 20 138/70 99 Room Air 11/20/16 00:00 97.4 52 16 113/63 98 Room Air 11/19/16 19:25 99.1 64 20 113/68 99 Room Air 11/19/16 15:50 98.6 58 20 123/70 99 Room Air 11/19/16 12:00 98.4 55 20 118/72 99 Room Air Capillary Refill : Less Than 3 SecondsLess Than 3 Seconds General Appearance: No Apparent Distress, WD/WN HEENT: PERRL/EOMI Neck: Full Range of Motion, Normal Inspection, Non Tender, Supple Respiratory: Lungs Clear, No Accessory Muscle Use, No Respiratory Distress Cardiovascular: Regular Rate, Rhythm Gastrointestinal: non tender, distended Extremity: Normal Capillary Refill, Normal Inspection, Normal Range of Motion, Non Tender, No Calf Tenderness, No Pedal Edema Neurologic/Psychiatric: Alert, Oriented x3 Skin: Normal Color, Warm/Dry Assessment/Plan Assessment/Plan Assess & Plan/Chief Complaint constipation secondary to diet and meds. start enemas. when significant BM can d/c home. Clinical Quality Measures DVT/VTE Risk/Contraindication: Risk Factor Score Per Nursin RFS Level Per Nursing on Admit: 4+=Very High CHANTELLE SANCHEZ DRY PLASTERER HELPER Nov 20, 2016 11:37 am
== END 2016-11-20 16:05 | disposition home or self-care (01) | DRG 392 ==
LOC: EDUNIT# 08:31 → ER 08:34 → 4TH 11:15
PROVIDERS: ADMIT Surgery; ATTEND Surgery
DX: K59.03 Drug induced constipation (principal); T42.4X5A Adverse effect of benzodiazepines, initial encounter; T40.4X5A Adverse effect of other synthetic narcotics, initial encounter; K80.20 Calculus of gallbladder without cholecystitis without obstruction; J44.9 Chronic obstructive pulmonary disease, unspecified; F17.210 Nicotine dependence, cigarettes, uncomplicated; F43.10 Post-traumatic stress disorder, unspecified; F98.8 Other specified behavioral and emotional disorders with onset usually occurring in childhood and adolescence
CPT/HCPCS: 36415; 74000; 74020; 80053; 81000; 85025

== ENCOUNTER 2017-09-13 21:08 | Emergency (ER) | payer MEDICAID ==
[~2017-09-13] VITALS: Ht 180.3 cm; Wt 63.5 kg
[2017-09-13] MEDS ORDERED: CYCLOBENZAPRINE 10 MG (FLEXERIL) TAB PO SCH (22:15)
[2017-09-13] MEDS ORDERED: IBUPROFEN 800 MG (MOTRIN) TAB PO ONE (22:15)
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
[2017-09-13] MEDS ORDERED: RX-HYDROCODONE/APAP 5/325 MG #4 TAB PK PO PRN (22:45)
--- OUTSIDE RECORDS SUMMARY | 2017-09-13 23:21 | XMS REPORT ---
Author Author ROSA DORAN Organization [facility] Address [address] [place] [address] Care Team Providers Care Store Receiving Specialist Name Role Phone ROSA DORAN Unavailable PROBLEMS Type Condition ICD9-CM Code THX66-[id number] Code Onset Dates Condition Status SNOMED Code Problem Schizoaffective disorder, depressive type F25.1 Active 74922156 Problem Low back pain M54.5 Active 847607469 Problem Attention deficit hyperactivity disorder (ADHD), predominantly inattentive type F90.0 Active 35146486 Problem Depressive disorder, not elsewhere classified F32.9 Active 78889154 Problem Panic disorder F41.0 Active 852895416 Problem Sebaceous cyst of penis N48.89 Active 978478045076099 Problem Unspecified psychosis F29 Active 51728012 ALLERGIES No Information ENCOUNTERS Encounter Location Date Diagnosis [place] [address] 23149- 2077 Apr, [place] [address] 13309- 8914 Apr, Small bowel obstruction K56.609 [place] [address] [place] [id number] [place] [address] 12950- 7711 Mar, 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 [place] [address] [place] [id number] [place] [address] 61702- 7116 Mar, Small bowel obstruction K56.609 [place] [address] 63032- 2166 Feb, Small bowel obstruction K56.609 [place] [address] [place] [id number] [place] [address] 42300- 3176 Jan, [place] [address] 54184- 4867 Jan, Small bowel obstruction K56.609 [facility] [address] [place] [id number] [place] [address] 83487- 4151 Dec, Small bowel obstruction K56.609 [facility] [address] [place] [address] 97311- 5098 Nov, Acute epididymitis N45.1 [facility] [address] [place] [id number] [place] [address] 06107- 2336 Nov, [facility] [address] [id number] [place] [address] 30676- 9587 Nov, [facility] [address] [place] [id number] [place] [address] 44942- 6369 Oct, Acute epididymitis N45.1 [facility] [address] [place] [id number] [place] [address] 28108- 3589 Sep, Acute epididymitis N45.1 [facility] [address] [place] [id number] [place] [address] 37644- 5123 Aug, Acute epididymitis N45.1 [facility] [address] [place] [id number] [place] [address] 27894- 9429 Jul, Acute epididymitis N45.1 [facility] [address] [place] [address] 02197- 5158 Jul, Acute epididymitis N45.1 [facility] [address] [place] [id number] [place] [address] 88779- 1697 June, Lipoma of torso D17.1 [facility] [address] [place] [id number] [place] [address] 09508- 0921 June, Epididymitis N45.1 and Low back pain M54.5 [facility] [address] [place] [address] 66700- 2170 June, Acute epididymitis N45.1 [facility] [address] [place] [id number] [address]- 7778 May, Acute epididymitis N45.1 [facility] [address] [place] [id number] [place] [address] 517492- 5265 May, Acute epididymitis N45.1 [facility] [address] [place] [id number] [place] [address] 843400- 6016 Apr, Acute epididymitis N45.1 [facility] [address] [place] [id number] [place] [address] 158153- 4863 Apr, Acute epididymitis N45.1 [facility] [address] [place] [id number] [place] [address] 090929- 0406 Mar, [facility] [address] [place] [id number] [place] [address] 32307- 4037 Mar, Panic disorder F41.0 [facility] [address] [place] [id number] [place] [address] 22090- 5505 Mar, Acute epididymitis N45.1 ; Attention deficit hyperactivity disorder (ADHD), predominantly inattentive type F90.0 and Sebaceous cyst of penis N48.89 [facility] [address] [place] [id number] [place] [address] 69283- 9112 Mar, [facility] [address] [place] [address] 02516- 2853 Feb, [facility] [address] [place] [id number] [place] [address] 10610- 7503 Feb, [facility] [address] [place] [id number] [place] [address] 904372- 7181 Jan, [facility] [address] [place] [id number] [place] [address] 14074- 1526 Jan, [facility] [address] [address]- 1746 Dec, [facility] [address] [place] [id number] [place] [address] 91958- 4706 Nov, [facility] [address] [place] [address] 20268- 7362 Oct, [facility] [address] [place] [id number] [place] [address] 35172- 6251 Sep, [facility] [address] [place] [id number] [place] [address] 99634- 0524 Aug, [facility] [address] [place] [id number] [place] [address] 59705- 4870 Jul, Schizoaffective disorder, depressive type F25.1 [place] [address] [place] [id number] [place] [address] 05984- 5443 June, Schizoaffective disorder, depressive type F25.1 ; Panic disorder F41.0 and Lumbago with sciatica, right side M54.41 [place] [address] [place] [id number] [place] [address] 16680- 9429 June, Depressive disorder, not elsewhere classified F32.9 ; Unspecified psychosis F29 and 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 [facility] [address] [place] [id number] [place] [address] 19773- 0235 May, [facility] [address] [place] [id number] [place] [address] 45748- 6713 May, [facility] [address] [place] [id number] [place] [address] 38537- 9090 May, Lumbar neuritis M54.16 ; Thoracic neuritis M54.14 and Attention deficit hyperactivity disorder (ADHD), predominantly inattentive type F90.0 [facility] [address] [place] [id number] [place] [address] 20776- 3623 Apr, ADHD (attention deficit hyperactivity disorder), inattentive type F90.0 [facility] [address] [place] [id number] [place] [address] 21210- 6754 Mar, ADHD (attention deficit hyperactivity disorder), inattentive type F90.0 and Back pain M54.9 [facility] [address] [place] [id number] [place] [address] 01545- 0433 Mar, Attention deficit hyperactivity disorder (ADHD), predominantly inattentive type F90.0 [facility] [address] [place] [id number] [place] [address] 59218- 9975 Feb, Schizoaffective disorder, depressive type F25.1 and Panic disorder F41.0 [facility] [address] 01841- 4036 Feb, Attention deficit hyperactivity disorder (ADHD), predominantly inattentive type F90.0 ; Low back pain M54.5 and Sciatica, unspecified side M54.30 [place] [address] [place] [id number] [place] [address] 07878- 0745 Jan, [place] [address] [place] [id number] [place] [address] 54426- 7978 Jan, Schizoaffective disorder, depressive type F25.1 and Panic disorder F41.0 [facility] [address] [place] [id number] [place] [address] 74449- 9956 Jan, Mood disorder F39 ; Bilateral low back pain with sciatica, sciatica laterality unspecified M54.40 ; ADHD (attention deficit hyperactivity disorder) F90.9 and Tobacco abuse Z72.0 [facility] [address] [place] [id number] [place] [address] 82862- 0038 Dec, Low back pain M54.5 ; Sciatica, unspecified side M54.30 ; ADHD (attention deficit hyperactivity disorder), inattentive type F90.0 and Mood disorder F39 [facility] [address] [place] [id number] [place] [address] 63470- 1410 May, Lateral malleolar fracture 824.2 [facility] [address] [place] [id number] [place] [address] 57560- 8587 May, [facility] [address] 67550- 9612 May, [facility] [address] [id number] [place] [address]- 1962 Apr, [facility] [place] [facility] [address] [id number] [place] [address]- 9296 Apr, [facility] [address] [place] [id number] Mar, [facility] [place] [facility] [address] [id number] [place] [address]- 6516 Mar, [facility] [place] [facility] [address] [id number] [place] 4413 Jan, [facility] [place] [facility] [address] [id number] [place] [address]- 1316 Jan, [facility] [place] [facility] [address] [id number] [place] [address]- 6236 Nov, [facility] [place] [facility] [address] [id number] [place] [address]- 5770 Nov, [facility] [place] [facility] [address] [id number] [place] [address]- 0079 Oct, [facility] [place] [facility] [address] [id number] [place] [address]- 0766 Oct, [facility] [place] [facility] [address] [id number] [place] [address]- 1360 Apr, [facility] [place] [facility] [address] [id number] [place] [address]- 0775 Apr, [facility] [address] [place] [id number] Apr, [facility] [place] [facility] [address] [id number] [place] [address]- 5666 Apr, [facility] [place] [facility] [address] [id number] [place] [address]- 2486 Nov, [facility] [place] [facility] [address] [id number] [place] [address]- 4976 Nov, [facility] [place] [facility] [address] [facility] [id number] [place] [address]- 4312 Nov, [facility] [address] [facility] [id number] [place] [address]- 6060 Nov, IMMUNIZATIONS No Known Immunizations SOCIAL HISTORY Never Assessed REASON FOR VISIT Controlled Med Refill 11/27/16 PLAN OF CARE VITAL SIGNS MEDICATIONS Medication Instructions Dosage Frequency Start Date End Date Duration Status Adderall 30 MG Orally 2 times a day 1 tablet 12h Nov, 28 days Active RESULTS No Results PROCEDURES No Known procedures INSTRUCTIONS MEDICATIONS ADMINISTERED No Known Medications MEDICAL (GENERAL) HISTORY Type Description Date Medical History Schizoaffective disorder, depressive type Medical History Panic disorder Medical History ADHD Surgical History facial reconstruction as a child Surgical History splenectomy Surgical History cleft pallet Hospitalization History surgeries Hospitalization History Pt. fell and hit head ER visit [facility] 05/08/15 Hospitalization History [facility] for vomiting
--- OUTSIDE RECORDS SUMMARY | 2017-09-13 23:21 | XMS REPORT ---
Author Author ROSA DORAN Organization [facility] Address [address] [place] [address] Care Team Providers Care Test Tube Maker Name Role Phone ROSA DORAN Unavailable PROBLEMS Type Condition ICD9-CM Code [id number] Code Onset Dates Condition Status SNOMED Code Problem Schizoaffective disorder, depressive type F25.1 Active 12657358 Problem Low back pain M54.5 Active 952268067 Problem Attention deficit hyperactivity disorder (ADHD), predominantly inattentive type F90.0 Active 83925212 Problem Depressive disorder, not elsewhere classified F32.9 Active 34311247 Problem Panic disorder F41.0 Active 083424743 Problem Sebaceous cyst of penis N48.89 Active 288657365071183 Problem Unspecified psychosis F29 Active 62181845 ALLERGIES No Information ENCOUNTERS Encounter Location Date Diagnosis [place] [address] 13370- 0827 Apr, [place] [address] 87131- 3411 Apr, Small bowel obstruction K56.609 [place] [address] [place] [id number] [place] [address] 59622- 0993 Mar, 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 [place] [address] [place] [id number] [place] [address] 31544- 2643 Mar, Small bowel obstruction K56.609 [place] [address] 90957- 5044 Feb, Small bowel obstruction K56.609 [place] [address] [place] [id number] [place] [address] 70211- 7941 Jan, [place] [address] 54311- 6175 Jan, Small bowel obstruction K56.609 [facility] [address] [place] [id number] [place] [address] 85800- 8386 Dec, Small bowel obstruction K56.609 [facility] [address] [place] [address] 63455- 5092 Nov, Acute epididymitis N45.1 [facility] [address] [place] [id number] [place] [address] 47499- 8494 Nov, [facility] [address] [place] [id number] [place] [address] 95009- 7639 Nov, [facility] [address] [place] [id number] [place] [address] 90281- 0162 Oct, Acute epididymitis N45.1 [facility] [address] [place] [id number] [place] [address] 44763- 6330 Sep, Acute epididymitis N45.1 [facility] [address] [place] [id number] [place] [address] 24014- 5272 Aug, Acute epididymitis N45.1 [facility] [address] [place] [id number] [place] [address] 21214- 8392 Jul, Acute epididymitis N45.1 [facility] [address] [place] [address] 77536- 0528 Jul, Acute epididymitis N45.1 [facility] [address] [place] [id number] [place] [address] 04512- 0352 June, Lipoma of torso D17.1 [facility] [address] [place] [id number] [place] [address] 11920- 5730 June, Epididymitis N45.1 and Low back pain M54.5 [facility] [address] [place] [address] 16445- 4697 June, Acute epididymitis N45.1 [facility] [address] [id number] [address]- 6814 May, Acute epididymitis N45.1 [facility] [address] [place] [id number] [place] [address] 930722- 1270 May, Acute epididymitis N45.1 [facility] [address] [place] [id number] [place] [address] 180811- 1346 Apr, Acute epididymitis N45.1 [facility] [address] [place] [id number] [place] [address] 585013- 8770 Apr, Acute epididymitis N45.1 [facility] [address] [place] [id number] [place] [address] 101302- 0736 Mar, [facility] [address] [place] [id number] [place] [address] 26174- 5280 Mar, Panic disorder F41.0 [facility] [address] [place] [id number] [place] [address] 77575- 9341 Mar, Acute epididymitis N45.1 ; Attention deficit hyperactivity disorder (ADHD), predominantly inattentive type F90.0 and Sebaceous cyst of penis N48.89 [facility] [address] [place] [id number] [place] [address] 33655- 6865 Mar, [facility] [address] [place] [address] 84393- 7905 Feb, [facility] [address] [place] [id number] [place] [address] 66897- 6031 Feb, [facility] [address] [place] [id number] [place] [address] 965037- 2938 Jan, [facility] [address] [place] [id number] [place] [address] 91573- 4546 Jan, [facility] [address] [address]- 5756 Dec, [facility] [address] [place] [id number] [place] [address] 31819- 4691 Nov, [facility] [address] [place] [address] 69842- 5047 Oct, [facility] [address] [place] [id number] [place] [address] 75466- 0736 Sep, [facility] [address] [place] [id number] [place] [address] 25139- 0102 Aug, [facility] [address] [place] [id number] [place] [address] 28854- 8482 Jul, Schizoaffective disorder, depressive type F25.1 [place] [address] [place] [id number] [place] [address] 95891- 7845 June, Schizoaffective disorder, depressive type F25.1 ; Panic disorder F41.0 and Lumbago with sciatica, right side M54.41 [place] [address] [place] [id number] [place] [address] 56509- 8623 June, Depressive disorder, not elsewhere classified F32.9 ; Unspecified psychosis F29 and 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 [facility] [address] [place] [id number] [place] [address] 25341- 7141 May, [facility] [address] [place] [id number] [place] [address] 95752- 7124 May, [facility] [address] [place] [id number] [place] [address] 03918- 0450 May, Lumbar neuritis M54.16 ; Thoracic neuritis M54.14 and Attention deficit hyperactivity disorder (ADHD), predominantly inattentive type F90.0 [facility] [address] [place] [id number] [place] [address] 22018- 6994 Apr, ADHD (attention deficit hyperactivity disorder), inattentive type F90.0 [facility] [address] [place] [id number] [place] [address] 98179- 6726 Mar, ADHD (attention deficit hyperactivity disorder), inattentive type F90.0 and Back pain M54.9 [facility] [address] [place] [id number] [place] [address] 09475- 8439 Mar, Attention deficit hyperactivity disorder (ADHD), predominantly inattentive type F90.0 [facility] [address] [place] [id number] [place] [address] 98851- 2030 Feb, Schizoaffective disorder, depressive type F25.1 and Panic disorder F41.0 [facility] [address] 10871- 1033 Feb, Attention deficit hyperactivity disorder (ADHD), predominantly inattentive type F90.0 ; Low back pain M54.5 and Sciatica, unspecified side M54.30 [place] [address] [place] [id number] [place] [address] 98659- 5562 Jan, [place] [address] [place] [id number] [place] [address] 57195- 2857 Jan, Schizoaffective disorder, depressive type F25.1 and Panic disorder F41.0 [facility] [address] [place] [id number] [place] [address] 64452- 5609 Jan, Mood disorder F39 ; Bilateral low back pain with sciatica, sciatica laterality unspecified M54.40 ; ADHD (attention deficit hyperactivity disorder) F90.9 and Tobacco abuse Z72.0 [facility] [address] [place] [id number] [place] [address] 32414- 6486 Dec, Low back pain M54.5 ; Sciatica, unspecified side M54.30 ; ADHD (attention deficit hyperactivity disorder), inattentive type F90.0 and Mood disorder F39 [facility] [address] [place] [id number] [place] [address] 99136- 1938 May, Lateral malleolar fracture 824.2 [facility] [address] [place] [id number] [place] [address] 33080- 9657 May, [facility] [address] 35953- 7690 May, [facility] [address] [id number] [place] [address]- 5850 Apr, [facility] [place] [facility] [address] [id number] [place] [address]- 8506 Apr, [facility] [address] [id number] Mar, [facility] [place] [facility] [address] [id number] [place] [address]- 5596 Mar, [facility] [place] [facility] [address] [id number] [place]27 Jan, [facility] [place] [facility] [address] [id number] [place] [address]- 7076 Jan, [facility] [place] [facility] [address] [id number] [place] [address]- 7086 Nov, [facility] [place] [facility] [address] [id number] [place] [address]- 2496 Nov, [facility] [place] [facility] [address] [id number] [place] [address]- 1159 Oct, [facility] [place] [facility] [address] [id number] [place] [address]- 3546 Oct, [facility] [place] [facility] [address] [id number] [place] [address]- 7953 Apr, [facility] [place] [facility] [address] [id number] [place] [address]- 0379 Apr, [facility] [address] [id number] Apr, [facility] [place] [facility] [address] [id number] [place] [address]- 3916 Apr, [facility] [place] [facility] [address] [id number] [place] [address]- 4236 Nov, [facility] [place] [facility] [address] [id number] [place] [address]- 3186 Nov, [facility] [place] [facility] [address] [facility] [id number] [place] [address]- 9550 Nov, [facility] [address] [facility] [id number] [place] [address]- 7399 Nov, IMMUNIZATIONS No Known Immunizations SOCIAL HISTORY Never Assessed REASON FOR VISIT refills PLAN OF CARE VITAL SIGNS MEDICATIONS Unknown Medications RESULTS No Results PROCEDURES No Known procedures [...]
--- OUTSIDE RECORDS SUMMARY | 2017-09-13 23:22 | XMS REPORT ---
Author Author KAR KIMMIE Organization [facility] Address [address] [place] [address] Care Team Providers Care Engineering Program Manager Name Role Phone KIMMIE LAKHANI Unavailable PROBLEMS Type Condition ICD9-CM Code MRW93-JE Code Onset Dates Condition Status SNOMED Code Problem Schizoaffective disorder, depressive type F25.1 Active 26363610 Problem Low back pain M54.5 Active 819838110 Problem Attention deficit hyperactivity disorder (ADHD), predominantly inattentive type F90.0 Active 44879287 Problem Depressive disorder, not elsewhere classified F32.9 Active 29724505 Problem Panic disorder F41.0 Active 750059358 Problem Sebaceous cyst of penis N48.89 Active 252337875734740 Problem Unspecified psychosis F29 Active 38222290 ALLERGIES No Information ENCOUNTERS Encounter Location Date Diagnosis [place] [id number] [place] [address] 31342- 0403 Apr, [place] [address] [place] [id number] [place] [address] 57526- 6807 Apr, Small bowel obstruction K56.609 [place] [address] [place] [id number] [place] [address] 27652- 3337 Mar, longterm current use of opiate analgesic Z79.891 [place] [address] [place] [address] 42296- 0057 Mar, Small bowel obstruction K56.609 [place] [address] [place] [id number] [place] [address] 60653- 6026 Feb, Small bowel obstruction K56.609 [place] [address] [place] [address] 53044- 3537 Jan, [place] [address] [address] 4329 Jan, Small bowel obstruction K56.609 [facility] [address] [id number] [place] [address] 572704- 5376 Dec, Small bowel obstruction K56.609 [facility] [address] [place] [address] 726804- 0626 Nov, Acute epididymitis N45.1 [facility] [address] [id number] [place] [address] 123097- 6933 Nov, [facility] [address] [id number] [place] [address] 063338- 2361 Nov, [facility] [address] [place] [address] 65655- 7961 Oct, Acute epididymitis N45.1 [facility] [address] [id number] [place] [address] 41096- 4308 Sep, Acute epididymitis N45.1 [facility] [address] [place] [address] 55763- 6240 Aug, Acute epididymitis N45.1 [facility] [id number] [place] [address] 230310- 6391 Jul, Acute epididymitis N45.1 [facility] [address] [place] [address] 844263- 4715 Jul, Acute epididymitis N45.1 [facility] [address] [place] [address] 82900- 2085 June, Lipoma of torso D17.1 [facility] [address] [place] [id number] [place] [address] 45673- 3332 June, Epididymitis N45.1 and Low back pain M54.5 [facility] [address] [place] [address] 00691- 6672 June, Acute epididymitis N45.1 [facility] [address] [address]- 3443 May, Acute epididymitis N45.1 [facility] [address] [id number] [place] [address] 58531- 8422 May, Acute epididymitis N45.1 [facility] [address] [id number] [place] [address] 45565- 0536 Apr, Acute epididymitis N45.1 [facility] [address] [id number] [place] [address] 35641- 8864 Apr, Acute epididymitis N45.1 [facility] [address] [id number] [place] [address] 67099- 1506 Mar, [facility] [address] [id number] [place] [address] 28419- 5720 Mar, Panic disorder F41.0 [facility] [address] [id number] [place] [address] 47541- 7055 Mar, Acute epididymitis N45.1 ; Attention deficit hyperactivity disorder (ADHD), predominantly inattentive type F90.0 and Sebaceous cyst of penis N48.89 [facility] [address] [place] [id number] [place] [address] 74056- 4055 Mar, [facility] [id number] [place] [address] 98856- 8102 Feb, [facility] [address] [place] [address] [id number] [place] [address] 66107- 6183 Feb, [facility] [address] [place] [address] [id number] [place] [address] 09990- 7776 Jan, [facility] [address] [id number] [place] [address] 024498- 1336 Jan, [facility] [address] [id number] [place] [address] 42673- 1451 Dec, [facility] [address] [place] [id number] [place] [address]- 4747 Nov, [facility] [address] [place] [id number] [place] [address] 32493- 5641 Oct, [facility] [address] [place] [id number] [place] [address] 42439- 1853 Sep, [place] [address] [place] [id number] [place] [address] 97613- 3089 Aug, [facility] [address] [place] [id number] [place] [address] 85643- 9303 Jul, Schizoaffective disorder, depressive type F25.1 [place] [address] [place] [id number] [place] [address] 81994- 0338 June, Schizoaffective disorder, depressive type F25.1 ; Panic disorder F41.0 and Lumbago with sciatica, right side M54.41 [place] [address] [place] [id number] [place] [address] 38787- 9863 June, Depressive disorder, not elsewhere classified F32.9 ; Unspecified psychosis F29 and 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 [place] [address] [place] [id number] [place] [address] 04440- 1921 May, [place] [address] [place] [id number] [place] [address] 09515- 3206 May, [place] [address] [place] [id number] [place] [address] 78037- 0644 May, Lumbar neuritis M54.16 ; Thoracic neuritis M54.14 and Attention deficit hyperactivity disorder (ADHD), predominantly inattentive type F90.0 [place] [address] [place] [id number] [place] [address] 92833- 4344 Apr, ADHD (attention deficit hyperactivity disorder), inattentive type F90.0 [place] [address] [place] [id number] [place] [address] 85168- 1197 Mar, ADHD (attention deficit hyperactivity disorder), inattentive type F90.0 and Back pain M54.9 [place] [address] [place] [id number] [place] [address] 68057- 9909 Mar, Attention deficit hyperactivity disorder (ADHD), predominantly inattentive type F90.0 [facility] [address] [place] [id number] [place] [address] 91821- 3347 Feb, Schizoaffective disorder, depressive type F25.1 and Panic disorder F41.0 [facility] [address] [place] [id number] [place] [address] 86130- 8528 Feb, Attention deficit hyperactivity disorder (ADHD), predominantly inattentive type F90.0 ; Low back pain M54.5 and Sciatica, unspecified side M54.30 [place] [address] [place] [id number] [place] [address] 43645- 1299 Jan, [place] [address] [place] [id number] [place] [address] 97450- 2532 Jan, Schizoaffective disorder, depressive type F25.1 and Panic disorder F41.0 [place] [address] [place] [id number] [place] [address] 23868- 8943 Jan, Mood disorder F39 ; Bilateral low back pain with sciatica, sciatica laterality unspecified M54.40 ; ADHD (attention deficit hyperactivity disorder) F90.9 and Tobacco abuse Z72.0 [place] [address] [place] [id number] [place] [address] 59531- 3286 Dec, Low back pain M54.5 ; Sciatica, unspecified side M54.30 ; ADHD (attention deficit hyperactivity disorder), inattentive type F90.0 and Mood disorder F39 [place] [address] [place] [id number] [place] [address] 51643- 2070 May, Lateral malleolar fracture 824.2 [facility] [address] [place] [id number] [place] [address] 83766- 3078 May, [place] [address] [place] [id number] [place] [address] 70659- 6978 May, [facility] [place] [facility] [address] [id number] [place] [address]- 6907 Apr, [facility] [place] [facility] [address] [id number] [place] [address]- 6527 Apr, [facility] [address] [place] [id number] Mar, [facility] [place] [facility] [address] [id number] [place] [address]- 0027 Mar, [facility] [place] [facility] [address] [id number] [place] [address]- 2443 Jan, [facility] [place] [facility] [address] [id number] [place] [address]- 0205 Jan, [facility] [place] [facility] [address] [id number] [place] [address]- 5615 Nov, [facility] [place] [facility] [address] [id number] [place] [address]- 9757 Nov, [facility] [place] [facility] [address] [id number] [place] [address]- 2073 Oct, [facility] [place] [facility] [address] [id number] [place] [address]- 7825 Oct, [facility] [place] [facility] [address] [id number] [place] [address]- 2798 Apr, [facility] [place] [facility] [address] [id number] [place] [address]- 2654 Apr, [facility] [address] [place] [id number] Apr, [facility] [place] [facility] [address] [id number] [place] [address]- 4057 Apr, [facility] [place] [facility] [address] [id number] [place] [address]- 0134 Nov, [facility] [place] [facility] [address] [id number] [place] [address]- 6938 Nov, [facility] [address] [facility] [id number] [place] [address]- 0006 Nov, [facility] [address] [facility] [id number] [place] [address]- 8938 Nov, IMMUNIZATIONS No Known Immunizations SOCIAL HISTORY Never Assessed REASON FOR VISIT Controlled ERx After DC from Hospital PLAN OF CARE VITAL SIGNS MEDICATIONS Medication Instructions Dosage Frequency Start Date End Date Duration Status Valium 5 mg Orally Q8H 1 tablet as needed Nov, 07 days Active RESULTS No Results PROCEDURES No [...]
--- OUTSIDE RECORDS SUMMARY | 2017-09-13 23:22 | XMS REPORT ---
Author Author ROSA DORAN Organization [facility] Address [address] [place] [address] Care Team Providers Care Autocad Operator Name Role Phone ROSA DORAN Unavailable PROBLEMS Type Condition ICD9-CM Code LCN98-HC Code Onset Dates Condition Status SNOMED Code Problem Schizoaffective disorder, depressive type F25.1 Active 41758930 Problem Low back pain M54.5 Active 949452146 Problem Attention deficit hyperactivity disorder (ADHD), predominantly inattentive type F90.0 Active 67335958 Problem Depressive disorder, not elsewhere classified F32.9 Active 84918616 Problem Panic disorder F41.0 Active 144369748 Problem Sebaceous cyst of penis N48.89 Active 924328127098614 Problem Unspecified psychosis F29 Active 55808674 ALLERGIES No Information ENCOUNTERS Encounter Location Date Diagnosis [place] [address] 00490- 4974 Apr, [place] [address] 54144- 2011 Apr, Small bowel obstruction K56.609 [place] [address] [place] [id number] [place] [address] 64019- 2254 Mar, [employer] current use of opiate analgesic Z79.891 [place] [address] [place] [id number] [place] [address] 45742- 0660 Mar, Small bowel obstruction K56.609 [place] [address] 21305- 3516 Feb, Small bowel obstruction K56.609 [place] [address] [place] [id number] [place] [address] 71419- 5666 Jan, [place] [address] 20857- 9074 Jan, Small bowel obstruction K56.609 [facility] [address] [place] [id number] [place] [address] 37133- 2126 Dec, Small bowel obstruction K56.609 [facility] [address] [place] [address] 74225- 7824 Nov, Acute epididymitis N45.1 [facility] [address] [place] [id number] [place] [address] 27336- 2001 Nov, [facility] [id number] [place] [address] 55999- 9815 Nov, [facility] [address] [place] [id number] [place] [address] 15475- 3413 Oct, Acute epididymitis N45.1 [facility] [address] [place] [id number] [place] [address] 42258- 8083 Sep, Acute epididymitis N45.1 [facility] [address] [place] [id number] [place] [address] 71737- 3823 Aug, Acute epididymitis N45.1 [facility] [address] [place] [id number] [place] [address] 21582- 6839 Jul, Acute epididymitis N45.1 [facility] [address] [place] [address] 20889- 2582 Jul, Acute epididymitis N45.1 [facility] [address] [place] [id number] [place] [address] 12842- 7657 June, Lipoma of torso D17.1 [facility] [address] [place] [id number] [place] [address] 68960- 5161 June, Epididymitis N45.1 and Low back pain M54.5 [facility] [address] [place] [address] 56491- 8904 June, Acute epididymitis N45.1 [facility] [address] [place] [id number] [address]- 3776 May, Acute epididymitis N45.1 [facility] [address] [place] [id number] [place] [address] 399223- 7346 May, Acute epididymitis N45.1 [facility] [address] [place] [id number] [place] [address] 156185- 0076 Apr, Acute epididymitis N45.1 [facility] [address] [place] [id number] [place] [address] 567000- 4831 Apr, Acute epididymitis N45.1 [facility] [address] [place] [id number] [place] [address] 068500- 5026 Mar, [facility] [address] [place] [id number] [place] [address] 55341- 8299 Mar, Panic disorder F41.0 [facility] [address] [place] [id number] [place] [address] 68187- 9157 Mar, Acute epididymitis N45.1 ; Attention deficit hyperactivity disorder (ADHD), predominantly inattentive type F90.0 and Sebaceous cyst of penis N48.89 [facility] [address] [place] [id number] [place] [address] 37254- 1085 Mar, [facility] [address] [place] [address] 07015- 6345 Feb, [facility] [id number] [place] [address] 96189- 5866 Feb, [facility] [id number] [place] [address] 910840- 0559 Jan, [facility] [address] [place] [id number] [place] [address] 93418- 8686 Jan, [facility] [address] [address]- 4696 Dec, [facility] [address] [place] [id number] [place] [address] 39613- 1859 Nov, [facility] [address] [place] [address] 57574- 9775 Oct, [facility] [address] [id number] [place] [address] 63212- 1811 Sep, [facility] [id number] [place] [address] 46738- 0092 Aug, 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 [address] [place] [id number] [place] [address] 53666- 2542 May, [facility] [id number] [place] [address] 78455- 8634 May, [facility] [address] [place] [id number] [place] [address] 63418- 8076 May, Lumbar neuritis M54.16 ; Thoracic neuritis M54.14 and Attention deficit hyperactivity disorder (ADHD), predominantly inattentive type F90.0 [facility] [address] [place] [id number] [place] [address] 03349- 2243 Apr, ADHD (attention deficit hyperactivity disorder), inattentive type F90.0 [facility] [id number] [place] [address] 38059- 5848 Mar, ADHD (attention deficit hyperactivity disorder), inattentive type F90.0 and Back pain M54.9 [facility] [id number] [place] [address] 28508- 6680 Mar, Attention deficit hyperactivity disorder (ADHD), predominantly inattentive type F90.0 [facility] [id number] [place] [address] 64593- 5562 Feb, Schizoaffective disorder, depressive type F25.1 and Panic disorder F41.0 [facility] [address] 47269- 2491 Feb, Attention deficit hyperactivity disorder (ADHD), predominantly inattentive type F90.0 ; Low back pain M54.5 and Sciatica, unspecified side M54.30 [place] [address] [place] [id number] [place] [address] 72146- 0402 Jan, [place] [address] [place] [id number] [place] [address] 31766- 0946 Jan, Schizoaffective disorder, depressive type F25.1 and Panic disorder F41.0 [facility] [address] [id number] [place] [address] 52729- 9428 Jan, Mood disorder F39 ; Bilateral low back pain with sciatica, sciatica laterality unspecified M54.40 ; ADHD (attention deficit hyperactivity disorder) F90.9 and Tobacco abuse Z72.0 [facility] [address] [id number] [place] [address] 63941- 4293 Dec, Low back pain M54.5 ; Sciatica, unspecified side M54.30 ; ADHD (attention deficit hyperactivity disorder), inattentive type F90.0 [address] Mood [address]39 [facility] [address] [id number] [place] [address] 68874- 1168 May, Lateral malleolar fracture 824.2 [facility] [id number] [place] [address] 48979- 4348 May, [facility] [address] 11358- 0345 May, [facility] [address] [id number] [place] [address]- 4627 Apr, [facility] [place] [facility] [address] [id number] [place] [address]- 2956 Apr, [facility] [address] [place] [id number] Mar, [facility] [place] [facility] [address] [id number] [place] [address]- 7236 Mar, [facility] [place] [facility] [address] [id number] [place] 0688 Jan, [facility] [place] [facility] [address] [id number] [place] [address]- 1466 Jan, [facility] [place] [facility] [address] [id number] [place] [address]- 2746 Nov, [facility] [place] [facility] [address] [id number] [place] [address]- 8206 Nov, [facility] [place] [facility] [address] [id number] [place] [address]- 6226 Oct, [facility] [place] [facility] [address] [id number] [place] [address]- 7086 Oct, [facility] [place] [facility] [address] [id number] [place] [address]- 4815 Apr, [facility] [place] [facility] [address] [id number] [place] [address]- 0935 Apr, [facility] [address] [place] [id number] Apr, [facility] [place] [facility] [address] [id number] [place] [address]- 8836 Apr, [facility] [place] [facility] [address] [id number] [place] [address]- 9986 Nov, [facility] [place] [facility] [address] [id number] [place] [address]- 3666 Nov, [facility] [place] [facility] [address] [facility] [id number] [place] [address]- 7066 Nov, [facility] [address] [facility] [id number] [place] [address]- 6572 Nov, IMMUNIZATIONS No Known Immunizations SOCIAL HISTORY Never Assessed REASON FOR VISIT Controlled Med Refill 01/18/17 PLAN OF CARE VITAL SIGNS MEDICATIONS Medication Instructions Dosage Frequency Start Date End Date Duration Status Adderall 30 MG Orally 2 times a day 1 tablet 12h Jan, 28 days Active Valium 5 MG Orally Twice a day 1 tablet as needed 12h 08 Nov, 2016 28 days Active Tramadol HCl 50 mg [...]
--- OUTSIDE RECORDS SUMMARY | 2017-09-13 23:22 | XMS REPORT ---
Author Author ROSA DORAN Organization [facility] Address [address] [place] [address] Care Team Providers Care Olericulturist Name Role Phone ROSA DORAN Unavailable PROBLEMS Type Condition ICD9-CM Code [id number] Code Onset Dates Condition Status SNOMED Code Problem Schizoaffective disorder, depressive type F25.1 Active 12683067 Problem Low back pain M54.5 Active 638407380 Problem Attention deficit hyperactivity disorder (ADHD), predominantly inattentive type F90.0 Active 98453871 Problem Depressive disorder, not elsewhere classified F32.9 Active 00193421 Problem Panic disorder F41.0 Active 792165585 Problem Sebaceous cyst of penis N48.89 Active 428757071577582 Problem Unspecified psychosis F29 Active 19524791 ALLERGIES No Information ENCOUNTERS Encounter Location Date Diagnosis [place] [address] [address]- 0716 Apr, [place] [address] 47580- 8118 Apr, Small bowel obstruction K56.609 [place] [address] [place] [id number] [place] [address] 41920- 4442 Mar, 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 [place] [address] [place] [id number] [place] [address] 79528- 6903 Mar, Small bowel obstruction K56.609 [place] [address] 49267- 7273 Feb, Small bowel obstruction K56.609 [place] [address] [place] [id number] [place] [address] 40554- 2452 Jan, [place] [address] 39724- 1828 Jan, Small bowel obstruction K56.609 [facility] [address] [place] [id number] [place] [address] 31597- 7018 Dec, Small bowel obstruction K56.609 [facility] [address] [place] [address] 18907- 4010 Nov, Acute epididymitis N45.1 [facility] [address] [place] [id number] [place] [address] 44396- 2501 Nov, [facility] [address] [place] [id number] [place] [address] 89763- 0407 Nov, [facility] [address] [place] [id number] [place] [address] 62616- 7139 Oct, Acute epididymitis N45.1 [facility] [address] [place] [id number] [place] [address] 25071- 6609 Sep, Acute epididymitis N45.1 [facility] [address] [place] [id number] [place] [address] 46996- 9607 Aug, Acute epididymitis N45.1 [facility] [address] [place] [id number] [place] [address] 08741- 0517 Jul, Acute epididymitis N45.1 [facility] [address] [place] [address] 06700- 2786 Jul, Acute epididymitis N45.1 [facility] [address] [place] [id number] [place] [address] 82906- 8226 June, Lipoma of torso D17.1 [facility] [address] [place] [id number] [place] [address] 19427- 2174 June, Epididymitis N45.1 and Low back pain M54.5 [facility] [address] [place] [address] 94954- 7334 June, Acute epididymitis N45.1 [facility] [address] [id number] [address] 6325 May, Acute epididymitis N45.1 [facility] [address] [place] [id number] [place] [address] 396592- 3158 May, Acute epididymitis N45.1 [facility] [address] [place] [id number] [place] [address] 412420- 5126 Apr, Acute epididymitis N45.1 [facility] [address] [place] [id number] [place] [address] 641849- 4026 Apr, Acute epididymitis N45.1 [facility] [address] [place] [id number] [place] [address] 444353- 7456 Mar, [facility] [address] [place] [id number] [place] [address] 92275- 2522 Mar, Panic disorder F41.0 [facility] [address] [place] [id number] [place] [address] 72018- 5753 Mar, Acute epididymitis N45.1 ; Attention deficit hyperactivity disorder (ADHD), predominantly inattentive type F90.0 and Sebaceous cyst of penis N48.89 [facility] [address] [place] [id number] [place] [address] 93566- 5632 Mar, [facility] [address] [place] [address] 04118- 4293 Feb, [facility] [address] [place] [id number] [place] [address] 03919- 2110 Feb, [facility] [address] [place] [id number] [place] [address] 844546- 0936 Jan, [facility] [address] [place] [id number] [place] [address] 30233- 9806 Jan, [facility] [address] [address]- 1736 Dec, [facility] [address] [place] [id number] [place] [address] 09519- 0199 Nov, [facility] [address] [place] [address] 55385- 5018 Oct, [facility] [address] [place] [id number] [place] [address] 84196- 9598 Sep, [facility] [address] [place] [id number] [place] [address] 36243- 7402 Aug, [facility] [address] [place] [id number] [place] [address] 86418- 9165 Jul, Schizoaffective disorder, depressive type F25.1 [place] [address] [place] [id number] [place] [address] 20086- 6834 June, Schizoaffective disorder, depressive type F25.1 ; Panic disorder F41.0 and Lumbago with sciatica, right side M54.41 [place] [address] [place] [id number] [place] [address] 97245- 1086 June, Depressive disorder, not elsewhere classified F32.9 ; Unspecified psychosis F29 and 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 [facility] [address] [place] [id number] [place] [address] 31451- 9716 May, [facility] [address] [place] [id number] [place] [address] 20836- 6940 May, [facility] [address] [place] [id number] [place] [address] 00386- 7757 May, Lumbar neuritis M54.16 ; Thoracic neuritis M54.14 and Attention deficit hyperactivity disorder (ADHD), predominantly inattentive type F90.0 [facility] [address] [place] [id number] [place] [address] 40615- 0175 Apr, ADHD (attention deficit hyperactivity disorder), inattentive type F90.0 [facility] [address] [place] [id number] [place] [address] 14143- 5366 Mar, ADHD (attention deficit hyperactivity disorder), inattentive type F90.0 and Back pain M54.9 [facility] [address] [place] [id number] [place] [address] 98083- 5696 Mar, Attention deficit hyperactivity disorder (ADHD), predominantly inattentive type F90.0 [facility] [address] [place] [id number] [place] [address] 71843- 1978 Feb, Schizoaffective disorder, depressive type F25.1 and Panic disorder F41.0 [facility] [address] 83180- 9534 Feb, Attention deficit hyperactivity disorder (ADHD), predominantly inattentive type F90.0 ; Low back pain M54.5 and Sciatica, unspecified side M54.30 [place] [address] [place] [id number] [place] [address] 71760- 2455 Jan, [place] [address] [place] [id number] [place] [address] 90046- 7446 Jan, Schizoaffective disorder, depressive type F25.1 and Panic disorder F41.0 [facility] [address] [place] [id number] [place] [address] 83322- 8513 Jan, Mood disorder F39 ; Bilateral low back pain with sciatica, sciatica laterality unspecified M54.40 ; ADHD (attention deficit hyperactivity disorder) F90.9 and Tobacco abuse Z72.0 [facility] [address] [place] [id number] [place] [address] 03744- 0507 Dec, Low back pain M54.5 ; Sciatica, unspecified side M54.30 ; ADHD (attention deficit hyperactivity disorder), inattentive type F90.0 and Mood disorder F39 [facility] [address] [place] [id number] [place] [address] 07068- 9941 May, Lateral malleolar fracture 824.2 [facility] [address] [place] [id number] [place] [address] 10068- 0516 May, [facility] [address] 05711- 0899 May, [facility] [address] [id number] [place] [address]- 5111 Apr, [facility] [place] [facility] [address] [id number] [place] [address]- 7946 Apr, [facility] [address] [place] [id number] Mar, [facility] [place] [facility] [address] [id number] [place] [address]- 6226 Mar, [facility] [place] [facility] [address] [id number] [place] 7903 Jan, [facility] [place] [facility] [address] [id number] [place] [address]- 7766 Jan, [facility] [place] [facility] [address] [id number] [place] [address]- 3106 Nov, [facility] [place] [facility] [address] [id number] [place] [address]- 7409 Nov, [facility] [place] [facility] [address] [id number] [place] [address]- 2045 Oct, [facility] [place] [facility] [address] [id number] [place] [address]- 8136 Oct, [facility] [place] [facility] [address] [id number] [place] [address]- 8037 Apr, [facility] [place] [facility] [address] [id number] [place] [address]- 1099 Apr, [facility] [address] [place] [id number] Apr, [facility] [place] [facility] [address] [id number] [place] [address]- 6656 Apr, [facility] [place] [facility] [address] [id number] [place] [address]- 2026 Nov, [facility] [place] [facility] [address] [id number] [place] [address]- 8336 Nov, [facility] [place] [facility] [address] [facility] [id number] [place] [address]- 0652 Nov, [facility] [address] [facility] [id number] [place] [address]- 1737 Nov, IMMUNIZATIONS No Known Immunizations SOCIAL HISTORY Never Assessed REASON FOR VISIT Negative Ameritox PLAN OF CARE VITAL SIGNS MEDICATIONS Unknown [...]
--- OUTSIDE RECORDS SUMMARY | 2017-09-13 23:22 | XMS REPORT ---
Author Author ROSA DORAN Organization [facility] Address [address] [place] [address] Care Team Providers Care Supervisor Vegetable Farming Name Role Phone ROSA DORAN Unavailable PROBLEMS Type Condition ICD9-CM Code COL41-ME Code Onset Dates Condition Status SNOMED Code Problem Schizoaffective disorder, depressive type F25.1 Active 17060852 Problem Low back pain M54.5 Active 515413585 Problem Attention deficit hyperactivity disorder (ADHD), predominantly inattentive type F90.0 Active 17259821 Problem Depressive disorder, not elsewhere classified F32.9 Active 25631595 Problem Panic disorder F41.0 Active 688277094 Problem Sebaceous cyst of penis N48.89 Active 048558239431552 Problem Unspecified psychosis F29 Active 29574243 ALLERGIES No Information ENCOUNTERS Encounter Location Date Diagnosis [place] [address] 90134- 1105 Apr, [place] [address] 75161- 6018 Apr, Small bowel obstruction K56.609 [place] [address] [place] [id number] [place] [address] 99029- 4786 Mar, 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 [place] [address] [place] [id number] [place] [address] 89847- 6517 Mar, Small bowel obstruction K56.609 [place] [address] 88093- 4674 Feb, Small bowel obstruction K56.609 [place] [address] [place] [id number] [place] [address] 28506- 5495 Jan, [place] [address] 25029- 3324 Jan, Small bowel obstruction K56.609 [facility] [address] [place] [id number] [place] [address] 75671- 4378 Dec, Small bowel obstruction K56.609 [facility] [address] [place] [address] 60340- 0215 Nov, Acute epididymitis N45.1 [facility] [address] [place] [id number] [place] [address] 32285- 2608 Nov, [facility] [address] [place] [id number] [place] [address] 91190- 2710 Nov, [facility] [address] [place] [id number] [place] [address] 27307- 9043 Oct, Acute epididymitis N45.1 [facility] [address] [place] [id number] [place] [address] 60921- 1040 Sep, Acute epididymitis N45.1 [facility] [address] [place] [id number] [place] [address] 47077- 3748 Aug, Acute epididymitis N45.1 [facility] [address] [place] [id number] [place] [address] 75687- 7545 Jul, Acute epididymitis N45.1 [facility] [address] [place] [address] 55183- 0776 Jul, Acute epididymitis N45.1 [facility] [address] [place] [id number] [place] [address] 04570- 7062 June, Lipoma of torso D17.1 [facility] [address] [place] [id number] [place] [address] 34686- 7031 June, Epididymitis N45.1 and Low back pain M54.5 [facility] [address] [place] [address] 70478- 4293 June, Acute epididymitis N45.1 [facility] [address] [place] [id number] [address]- 2387 May, Acute epididymitis N45.1 [facility] [address] [place] [id number] [place] [address] 893988- 9097 May, Acute epididymitis N45.1 [facility] [address] [place] [id number] [place] [address] 553604- 8036 Apr, Acute epididymitis N45.1 [facility] [address] [place] [id number] [place] [address] 254561- 9913 Apr, Acute epididymitis N45.1 [facility] [address] [place] [id number] [place] [address] 965685- 2266 Mar, [facility] [address] [place] [id number] [place] [address] 00251- 1681 Mar, Panic disorder F41.0 [facility] [address] [place] [id number] [place] [address] 77702- 5044 Mar, Acute epididymitis N45.1 ; Attention deficit hyperactivity disorder (ADHD), predominantly inattentive type F90.0 and Sebaceous cyst of penis N48.89 [facility] [address] [place] [id number] [place] [address] 31933- 1001 Mar, [facility] [address] [place] [address] 79105- 2560 Feb, [facility] [address] [place] [id number] [place] [address] 47202- 4659 Feb, [facility] [address] [place] [id number] [place] [address] 998651- 6957 Jan, [facility] [address] [place] [id number] [place] [address] 07660- 4606 Jan, [facility] [address] [address]- 3986 Dec, [facility] [address] [place] [id number] [place] [address] 38784- 9671 Nov, [facility] [address] [place] [address] 06522- 8095 Oct, [facility] [address] [place] [id number] [place] [address] 72164- 2195 Sep, [facility] [address] [place] [id number] [place] [address] 06764- 9265 Aug, [facility] [address] [place] [id number] [place] [address] 82775- 1459 Jul, Schizoaffective disorder, depressive type F25.1 [place] [address] [place] [id number] [place] [address] 27170- 3182 June, Schizoaffective disorder, depressive type F25.1 ; Panic disorder F41.0 and Lumbago with sciatica, right side M54.41 [place] [address] [place] [id number] [place] [address] 27834- 7488 June, Depressive disorder, not elsewhere classified F32.9 ; Unspecified psychosis F29 and 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 [facility] [address] [place] [id number] [place] [address] 35176- 6807 May, [facility] [address] [place] [id number] [place] [address] 36275- 9879 May, [facility] [address] [place] [id number] [place] [address] 74792- 9169 May, Lumbar neuritis M54.16 ; Thoracic neuritis M54.14 and Attention deficit hyperactivity disorder (ADHD), predominantly inattentive type F90.0 [facility] [address] [place] [id number] [place] [address] 50875- 1294 Apr, ADHD (attention deficit hyperactivity disorder), inattentive type F90.0 [facility] [address] [place] [id number] [place] [address] 14146- 8893 Mar, ADHD (attention deficit hyperactivity disorder), inattentive type F90.0 and Back pain M54.9 [facility] [address] [place] [id number] [place] [address] 07265- 8600 Mar, Attention deficit hyperactivity disorder (ADHD), predominantly inattentive type F90.0 [facility] [address] [place] [id number] [place] [address] 66419- 5962 Feb, Schizoaffective disorder, depressive type F25.1 and Panic disorder F41.0 [facility] [address] 38536- 6347 Feb, Attention deficit hyperactivity disorder (ADHD), predominantly inattentive type F90.0 ; Low back pain M54.5 and Sciatica, unspecified side M54.30 [place] [address] [place] [id number] [place] [address] 84961- 0140 Jan, [place] [address] [place] [id number] [place] [address] 41165- 6249 Jan, Schizoaffective disorder, depressive type F25.1 and Panic disorder F41.0 [facility] [address] [place] [id number] [place] [address] 99625- 9535 Jan, Mood disorder F39 ; Bilateral low back pain with sciatica, sciatica laterality unspecified M54.40 ; ADHD (attention deficit hyperactivity disorder) F90.9 and Tobacco abuse Z72.0 [facility] [address] [place] [id number] [place] [address] 49375- 8886 Dec, Low back pain M54.5 ; Sciatica, unspecified side M54.30 ; ADHD (attention deficit hyperactivity disorder), inattentive type F90.0 and Mood disorder F39 [facility] [address] [place] [id number] [place] [address] 64726- 2563 May, Lateral malleolar fracture 824.2 [facility] [address] [place] [id number] [place] [address] 95305- 9139 May, [facility] [address] 76297- 7704 May, [facility] [address] [id number] [place] [address]- 1251 Apr, [facility] [place] [facility] [address] [id number] [place] [address]- 1136 Apr, [facility] [address] [id number] Mar, [facility] [place] [facility] [address] [id number] [place] [address]- 3956 Mar, [facility] [place] [facility] [address] [id number] [place] 1822 Jan, [facility] [place] [facility] [address] [id number] [place] [address]- 1886 Jan, [facility] [place] [facility] [address] [id number] [place] [address]- 7566 Nov, [facility] [place] [facility] [address] [id number] [place] [address]- 2771 Nov, [facility] [place] [facility] [address] [id number] [place] [address]- 7088 Oct, [facility] [place] [facility] [address] [id number] [place] [address]- 4516 Oct, [facility] [place] [facility] [address] [id number] [place] [address]- 5060 Apr, [facility] [place] [facility] [address] [id number] [place] [address]- 1620 Apr, [facility] [address] [id number] Apr, [facility] [place] [facility] [address] [id number] [place] [address]- 2896 Apr, [facility] [place] [facility] [address] [id number] [place] [address]- 4926 Nov, [facility] [place] [facility] [address] [id number] [place] [address]- 5446 Nov, [facility] [place] [facility] [address] [facility] [id number] [place] [address]- 9689 Nov, [facility] [address] [facility] [id number] [place] [address]- 6261 Nov, IMMUNIZATIONS No Known Immunizations SOCIAL HISTORY Never Assessed REASON FOR VISIT PA for Amphetamine/Dextroamphetamine PLAN OF CARE VITAL SIGNS MEDICATIONS Unknown [...]
--- OUTSIDE RECORDS SUMMARY | 2017-09-13 23:22 | XMS REPORT ---
Author Author PUMA DOOLEY [facility] Address [address] [place] [address] Care Team Providers Care Technician Automatic Name Role Phone PUMA DOOLEY Unavailable PROBLEMS Type Condition ICD9-CM Code [id number] Code Onset Dates Condition Status SNOMED Code Problem Schizoaffective disorder, depressive type F25.1 Active 86253160 Problem Low back pain M54.5 Active 255855405 Problem Attention deficit hyperactivity disorder (ADHD), predominantly inattentive type F90.0 Active 57021885 Problem Depressive disorder, not elsewhere classified F32.9 Active 78248598 Problem Panic disorder F41.0 Active 308155443 Problem Sebaceous cyst of penis N48.89 Active 811183844235248 Problem Unspecified psychosis F29 Active 52724678 ALLERGIES Substance Reaction Event Type Date Status Penicillin V Potassium Unknown Drug Allergy June, Active SOCIAL HISTORY Never Assessed PLAN OF CARE Activity Details Follow Up Reg appt Reason: VITAL SIGNS Height 70 in 2016-06-15 Weight 150.1 lbs 2016-06-15 Temperature 98.0 degrees Fahrenheit 2016-06-15 Heart Rate 72 bpm 2016-06-15 Respiratory Rate 20 2016-06-15 BMI 21.53 kg/m2 2016-06-15 Blood pressure systolic 122 mmHg 2016-06-15 Blood pressure diastolic 70 mmHg 2016-06-15 MEDICATIONS Medication Instructions Dosage Frequency Start Date End Date Duration Status Tramadol HCl 50 MG Orally every 6 hrs 1 tablet as needed 6h Jan, 28 days Active Cipro 500 mg Orally Twice a day 1 tablet 12h June, June, 10 day(s) Active Chlorzoxazone 500 mg Orally Three times a day 1 tablet 8h 7 Jul, 2016 30 days Active Adderall 30 MG Orally 2 times a day 1 tablet 12h June, 28 days Active RESULTS No Results PROCEDURES [...]
--- OUTSIDE RECORDS SUMMARY | 2017-09-13 23:23 | XMS REPORT ---
Author Author ROSA DORAN Organization [facility] Address [address] [place] [address] Care Team Providers Care Calciner Operator Helper Name Role Phone ROSA DORAN Unavailable PROBLEMS Type Condition ICD9-CM Code [id number] Code Onset Dates Condition Status SNOMED Code Problem Schizoaffective disorder, depressive type F25.1 Active 30620995 Problem Low back pain M54.5 Active 711353668 Problem Attention deficit hyperactivity disorder (ADHD), predominantly inattentive type F90.0 Active 56800915 Problem Depressive disorder, not elsewhere classified F32.9 Active 72699227 Problem Panic disorder F41.0 Active 821526564 Problem Sebaceous cyst of penis N48.89 Active [id number] Problem Unspecified psychosis F29 Active 85575358 ALLERGIES No Information ENCOUNTERS Encounter Location Date Diagnosis [place] [address] 7[address]32- 0481 Apr, [place] [address] 90967- 3431 Apr, Small bowel obstruction K56.609 [place] [address] [place] [id number] [place] [address] 19159- 4012 Mar, 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 [place] [address] [place] [id number] [place] [address] 79774- 8793 Mar, Small bowel obstruction K56.609 [place] [address] 71140- 2336 Feb, Small bowel obstruction K56.609 [place] [address] [place] [id number] [place] [address] 38227- 3932 Jan, [place] [address] 74836- 2369 Jan, Small bowel obstruction K56.609 [facility] [address] [place] [id number] [place] [address] 81198- 5083 Dec, Small bowel obstruction K56.609 [facility] [address] [place] [address] 23404- 2207 Nov, Acute epididymitis N45.1 [facility] [address] [place] [id number] [place] [address] 37129- 3273 Nov, [facility] [address] [place] [id number] [place] [address] 91968- 1331 Nov, [facility] [address] [place] [id number] [place] [address] 34108- 2157 Oct, Acute epididymitis N45.1 [facility] [address] [place] [id number] [place] [address] 28003- 5615 Sep, Acute epididymitis N45.1 [facility] [address] [place] [id number] [place] [address] 41459- 4229 Aug, Acute epididymitis N45.1 [facility] [address] [place] [id number] [place] [address] 16857- 3041 Jul, Acute epididymitis N45.1 [facility] [address] [place] [address] 39315- 0741 Jul, Acute epididymitis N45.1 [facility] [address] [place] [id number] [place] [address] 16794- 5587 June, Lipoma of torso D17.1 [facility] [address] [place] [id number] [place] [address] 61710- 2569 June, Epididymitis N45.1 and Low back pain M54.5 [facility] [address] [place] [address] 15105- 2151 June, Acute epididymitis N45.1 [facility] [address] [place] [id number] [address] 1154 May, Acute epididymitis N45.1 [facility] [address] [place] [id number] [place] [address] 818097- 0328 May, Acute epididymitis N45.1 [facility] [address] [place] [id number] [place] [address] 680589- 7506 Apr, Acute epididymitis N45.1 [facility] [address] [place] [id number] [place] [address] 063551- 5231 Apr, Acute epididymitis N45.1 [facility] [address] [place] [id number] [place] [address] 111757- 6906 Mar, [facility] [address] [place] [id number] [place] [address] 02323- 0877 Mar, Panic disorder F41.0 [facility] [address] [place] [id number] [place] [address] 56034- 2952 Mar, Acute epididymitis N45.1 ; Attention deficit hyperactivity disorder (ADHD), predominantly inattentive type F90.0 and Sebaceous cyst of penis N48.89 [facility] [address] [place] [id number] [place] [address] 32866- 0630 Mar, [facility] [address] [place] [address] 27402- 8665 Feb, [facility] [address] [place] [id number] [place] [address] 66849- 3469 Feb, [facility] [address] [place] [id number] [place] [address] 107458- 1889 Jan, [facility] [address] [place] [id number] [place] [address] 66867- 1046 Jan, [facility] [address] [address]- 9366 Dec, [facility] [address] [place] [id number] [place] [address] 55430- 4168 Nov, [facility] [address] [place] [address] 97796- 6589 Oct, [facility] [address] [place] [id number] [place] [address] 89929- 7065 Sep, [facility] [address] [place] [id number] [place] [address] 46836- 7020 Aug, [facility] [address] [place] [id number] [place] [address] 80906- 6349 Jul, Schizoaffective disorder, depressive type F25.1 [place] [address] [place] [id number] [place] [address] 43459- 6825 June, Schizoaffective disorder, depressive type F25.1 ; Panic disorder F41.0 and Lumbago with sciatica, right side M54.41 [place] [address] [place] [id number] [place] [address] 77649- 5271 June, Depressive disorder, not elsewhere classified F32.9 ; Unspecified psychosis F29 and 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 [facility] [address] [place] [id number] [place] [address] 09296- 0101 May, [facility] [address] [place] [id number] [place] [address] 35211- 5956 May, [facility] [address] [place] [id number] [place] [address] 15097- 6172 May, Lumbar neuritis M54.16 ; Thoracic neuritis M54.14 and Attention deficit hyperactivity disorder (ADHD), predominantly inattentive type F90.0 [facility] [address] [place] [id number] [place] [address] 34419- 1834 Apr, ADHD (attention deficit hyperactivity disorder), inattentive type F90.0 [facility] [address] [place] [id number] [place] [address] 33308- 0249 Mar, ADHD (attention deficit hyperactivity disorder), inattentive type F90.0 and Back pain M54.9 [facility] [address] [place] [id number] [place] [address] 92777- 0382 Mar, Attention deficit hyperactivity disorder (ADHD), predominantly inattentive type F90.0 [facility] [address] [place] [id number] [place] [address] 00528- 9643 Feb, Schizoaffective disorder, depressive type F25.1 and Panic disorder F41.0 [facility] [address] 85806- 8367 Feb, Attention deficit hyperactivity disorder (ADHD), predominantly inattentive type F90.0 ; Low back pain M54.5 and Sciatica, unspecified side M54.30 [place] [address] [place] [id number] [place] [address] 70770- 0113 Jan, [place] [address] [place] [id number] [place] [address] 91154- 5337 Jan, Schizoaffective disorder, depressive type F25.1 and Panic disorder F41.0 [facility] [address] [place] [id number] [place] [address] 70082- 8849 Jan, Mood disorder F39 ; Bilateral low back pain with sciatica, sciatica laterality unspecified M54.40 ; ADHD (attention deficit hyperactivity disorder) F90.9 and Tobacco abuse Z72.0 [facility] [address] [place] [id number] [place] [address] 47067- 8024 Dec, Low back pain M54.5 ; Sciatica, unspecified side M54.30 ; ADHD (attention deficit hyperactivity disorder), inattentive type F90.0 and Mood disorder F39 [facility] [address] [place] [id number] [place] [address] 69350- 9723 May, Lateral malleolar fracture 824.2 [facility] [address] [place] [id number] [place] [address] 97066- 6678 May, [facility] [address] 92084- 3668 May, [facility] [address] [id number] [place] [address]- 3371 Apr, [facility] [place] [facility] [address] [id number] [place] [address]- 9236 Apr, [facility] [address] [place] [id number] Mar, [facility] [place] [facility] [address] [id number] [place] [address]- 2246 Mar, [facility] [place] [facility] [address] [id number] [place] 4986 Jan, [facility] [place] [facility] [address] [id number] [place] [address]- 8246 Jan, [facility] [place] [facility] [address] [id number] [place] [address]- 9026 Nov, [facility] [place] [facility] [address] [id number] [place] [address]- 1037 Nov, [facility] [place] [facility] [address] [id number] [place] [address]- 6099 Oct, [facility] [place] [facility] [address] [id number] [place] [address]- 0256 Oct, [facility] [place] [facility] [address] [id number] [place] [address]- 0793 Apr, [facility] [place] [facility] [address] [id number] [place] [address]- 5876 Apr, [facility] [address] [id number] Apr, [facility] [place] [facility] [address] [id number] [place] [address]- 1816 Apr, [facility] [place] [facility] [address] [id number] [place] [address]- 4346 Nov, [facility] [place] [facility] [address] [id number] [place] [address]- 7836 Nov, [facility] [place] [facility] [address] [facility] [id number] [place] [address]- 3887 Nov, [facility] [address] [facility] [id number] [place] [address]- 1756 Nov, IMMUNIZATIONS No Known Immunizations SOCIAL HISTORY Never Assessed REASON FOR VISIT Saniya ABEBE PLAN OF CARE VITAL SIGNS MEDICATIONS Unknown Medications RESULTS Name Result Date Reference Range AMERIT[employer] 2017-03-16 PROCEDURES Procedure Date Ordered Result Body Site No Charge Mar 16, 2017 INSTRUCTIONS MEDICATIONS ADMINISTERED No Known Medications MEDICAL [...]
--- OUTSIDE RECORDS SUMMARY | 2017-09-13 23:23 | XMS REPORT ---
Author Author ROSA DORAN Organization [facility] Address [address] [place] [address] Care Team Providers Care Traffic Court Referee Name Role Phone ROSA DORAN Unavailable PROBLEMS Type Condition ICD9-CM Code HCL66-ED Code Onset Dates Condition Status SNOMED Code Problem Schizoaffective disorder, depressive type F25.1 Active 08510326 Problem Low back pain M54.5 Active 075724398 Problem Attention deficit hyperactivity disorder (ADHD), predominantly inattentive type F90.0 Active 15628870 Problem Depressive disorder, not elsewhere classified F32.9 Active 22282160 Problem Panic disorder F41.0 Active 305924455 Problem Sebaceous cyst of penis N48.89 Active 804275689138195 Problem Unspecified psychosis F29 Active 72797616 ALLERGIES No Information ENCOUNTERS Encounter Location Date Diagnosis [place] [address] 28056- 2973 Apr, [place] [address] 92570- 1945 Apr, Small bowel obstruction K56.609 [place] [address] [place] [id number] [place] [address] 27738- 2443 Mar, 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 [place] [address] [place] [id number] [place] [address] 61897- 4610 Mar, Small bowel obstruction K56.609 [place] [address] 58895- 9045 Feb, Small bowel obstruction K56.609 [place] [address] [place] [id number] [place] [address] 59560- 3341 Jan, [place] [address] 80264- 7962 Jan, Small bowel obstruction K56.609 [facility] [address] [place] [id number] [place] [address] 31570- 8782 Dec, Small bowel obstruction K56.609 [facility] [address] [place] [address] 80841- 6005 Nov, Acute epididymitis N45.1 [facility] [address] [place] [id number] [place] [address] 99077- 9551 Nov, [facility] [address] [place] [id number] [place] [address] 40862- 9160 Nov, [facility] [address] [place] [id number] [place] [address] 60887- 1487 Oct, Acute epididymitis N45.1 [facility] [address] [place] [id number] [place] [address] 94371- 3979 Sep, Acute epididymitis N45.1 [facility] [address] [place] [id number] [place] [address] 72583- 1777 Aug, Acute epididymitis N45.1 [facility] [address] [place] [id number] [place] [address] 74499- 0948 Jul, Acute epididymitis N45.1 [facility] [address] [place] [address] 09772- 8525 Jul, Acute epididymitis N45.1 [facility] [address] [place] [id number] [place] [address] 76629- 0132 June, Lipoma of torso D17.1 [facility] [address] [place] [id number] [place] [address] 08252- 3503 June, Epididymitis N45.1 and Low back pain M54.5 [facility] [address] [place] [address] 23911- 1480 June, Acute epididymitis N45.1 [facility] [address] [place] [id number] [address]- 8290 May, Acute epididymitis N45.1 [facility] [address] [place] [id number] [place] [address] 651497- 8265 May, Acute epididymitis N45.1 [facility] [address] [place] [id number] [place] [address] 382156- 2676 Apr, Acute epididymitis N45.1 [facility] [address] [place] [id number] [place] [address] 795740- 4500 Apr, Acute epididymitis N45.1 [facility] [address] [place] [id number] [place] [address] 286118- 5256 Mar, [facility] [address] [place] [id number] [place] [address] 04690- 2463 Mar, Panic disorder F41.0 [facility] [address] [place] [id number] [place] [address] 42810- 9670 Mar, Acute epididymitis N45.1 ; Attention deficit hyperactivity disorder (ADHD), predominantly inattentive type F90.0 and Sebaceous cyst of penis N48.89 [facility] [address] [place] [id number] [place] [address] 82631- 3296 Mar, [facility] [id number] [place] [address] 56087- 5646 Feb, [facility] [address] [place] [id number] [place] [address] 93862- 9220 Feb, [facility] [address] [place] [id number] [place] [address] 481922- 2082 Jan, [facility] [address] [place] [id number] [place] [address] 67072- 6026 Jan, [facility] [address] [address]- 2506 Dec, [facility] [address] [place] [id number] [place] [address] 13882- 0082 Nov, [facility] [id number] [place] [address] 16456- 2074 Oct, [facility] [address] [place] [id number] [place] [address] 71929- 7251 Sep, [facility] [address] [place] [id number] [place] [address] 85247- 0340 Aug, [facility] [address] [place] [id number] [place] [address] 89150- 3686 Jul, Schizoaffective disorder, depressive type F25.1 [place] [address] [place] [id number] [place] [address] 56572- 4042 June, Schizoaffective disorder, depressive type F25.1 ; Panic disorder F41.0 and Lumbago with sciatica, right side M54.41 [place] [address] [place] [id number] [place] [address] 03531- 1371 June, Depressive disorder, not elsewhere classified F32.9 ; Unspecified psychosis F29 and 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 [facility] [address] [place] [id number] [place] [address] 09755- 5368 May, [facility] [address] [place] [id number] [place] [address] 13736- 2460 May, [facility] [address] [place] [id number] [place] [address] 38272- 3403 May, Lumbar neuritis M54.16 ; Thoracic neuritis M54.14 and Attention deficit hyperactivity disorder (ADHD), predominantly inattentive type F90.0 [facility] [address] [place] [id number] [place] [address] 74933- 9728 Apr, ADHD (attention deficit hyperactivity disorder), inattentive type F90.0 [facility] [address] [place] [id number] [place] [address] 29243- 8074 Mar, ADHD (attention deficit hyperactivity disorder), inattentive type F90.0 and Back pain M54.9 [facility] [address] [place] [id number] [place] [address] 52405- 7143 Mar, Attention deficit hyperactivity disorder (ADHD), predominantly inattentive type F90.0 [facility] [address] [place] [id number] [place] [address] 33295- 4910 Feb, Schizoaffective disorder, depressive type F25.1 and Panic disorder F41.0 [facility] [address] 29458- 3443 Feb, Attention deficit hyperactivity disorder (ADHD), predominantly inattentive type F90.0 ; Low back pain M54.5 and Sciatica, unspecified side M54.30 [place] [address] [place] [id number] [place] [address] 27421- 0947 Jan, [place] [address] [place] [id number] [place] [address] 85857- 2937 Jan, Schizoaffective disorder, depressive type F25.1 and Panic disorder F41.0 [facility] [address] [place] [id number] [place] [address] 66000- 8868 Jan, Mood disorder F39 ; Bilateral low back pain with sciatica, sciatica laterality unspecified M54.40 ; ADHD (attention deficit hyperactivity disorder) F90.9 and Tobacco abuse Z72.0 [facility] [address] [place] [id number] [place] [address] 90427- 0279 Dec, Low back pain M54.5 ; Sciatica, unspecified side M54.30 ; ADHD (attention deficit hyperactivity disorder), inattentive type F90.0 and Mood disorder F39 [facility] [address] [place] [id number] [place] [address] 92324- 1337 May, Lateral malleolar fracture 824.2 [facility] [address] [place] [id number] [place] [address] 10303- 6722 May, [facility] [address] 43120- 3660 May, [facility] [address] [id number] [place] [address]- 2175 Apr, [facility] [place] [facility] [address] [id number] [place] [address]- 2736 Apr, [facility] [address] [id number] Mar, [facility] [place] [facility] [address] [id number] [place] [address]- 8826 Mar, [facility] [place] [facility] [address] [id number] [place] 8815 Jan, [facility] [place] [facility] [address] [id number] [place] [address]- 6516 Jan, [facility] [place] [facility] [address] [id number] [place] [address]- 4086 Nov, [facility] [place] [facility] [address] [id number] [place] [address]- 1393 Nov, [facility] [place] [facility] [address] [id number] [place] [address]- 3840 Oct, [facility] [place] [facility] [address] [id number] [place] [address]- 4786 Oct, [facility] [place] [facility] [address] [id number] [place] [address]- 9234 Apr, [facility] [place] [facility] [address] [id number] [place] [address]- 5702 Apr, [facility] [address] [id number] Apr, [facility] [place] [facility] [address] [id number] [place] [address]- 4006 Apr, [facility] [place] [facility] [address] [id number] [place] [address]- 7486 Nov, [facility] [place] [facility] [address] [id number] [place] [address]- 3126 Nov, [facility] [place] [facility] [address] [facility] [id number] [place] [address]- 8675 Nov, [facility] [address] [facility] [id number] [place] [address]- 5400 Nov, IMMUNIZATIONS No Known Immunizations SOCIAL HISTORY Never Assessed REASON FOR VISIT Controlled Med Refill 02/15 PLAN OF CARE VITAL SIGNS MEDICATIONS Medication Instructions Dosage Frequency Start Date End Date Duration Status Valium 5 MG Orally Twice a day 1 tablet as needed 12h Nov, 28 days Active Tramadol HCl 50 mg Orally every 6 hrs 1 tablet as needed 6h Jan, 28 days Active Adderall 30 MG Orally 2 times a day 1 tablet 12h Feb, 28 days Active RESULTS No Results PROCEDURES [...]
--- OUTSIDE RECORDS SUMMARY | 2017-09-13 23:23 | XMS REPORT ---
Author Author ROSA DORAN Organization [facility] Address [address] [place] [address] Care Team Providers Care Gaming Worker Name Role Phone ROSA DORAN Unavailable PROBLEMS Type Condition ICD9-CM Code FBE88-HK Code Onset Dates Condition Status SNOMED Code Problem Schizoaffective disorder, depressive type F25.1 Active 80445959 Problem Low back pain M54.5 Active 295530225 Problem Attention deficit hyperactivity disorder (ADHD), predominantly inattentive type F90.0 Active 61693758 Problem Depressive disorder, not elsewhere classified F32.9 Active 23698137 Problem Panic disorder F41.0 Active 329563516 Problem Sebaceous cyst of penis N48.89 Active 736468409230760 Problem Unspecified psychosis F29 Active 23785512 ALLERGIES No Information ENCOUNTERS Encounter Location Date Diagnosis [place] [address] [address] May, [place] [address] 28181- 0443 Apr, [place] [address] 52297- 0783 Apr, Small bowel obstruction K56.609 [place] [address] [place] [id number] [place] [address] 05236- 8898 Mar, 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 [place] [address] 84622- 5198 Mar, Small bowel obstruction K56.609 [facility] [address] [place] [id number] [place] [address] 37974- 1149 Feb, Small bowel obstruction K56.609 [place] [address] 77602- 9497 Jan, [facility] [address] [place] [address] 137767- 4761 Jan, Small bowel obstruction K56.609 [facility] [address] [place] [id number] [place] [address] 98003- 9496 Dec, Small bowel obstruction K56.609 [facility] [address] [place] [id number] [place] [address] 013043- 1756 Nov, Acute epididymitis N45.1 [facility] [address] [place] [id number] [place] [address] 948470- 8091 Nov, [facility] [address] [place] [id number] [place] [address] 831099- 6141 Nov, [facility] [address] [place] [id number] [place] [address] 93271- 7029 Oct, Acute epididymitis N45.1 [facility] [address] [place] [id number] [place] [address] 42142- 9234 Sep, Acute epididymitis N45.1 [facility] [address] [place] [id number] [place] [address] 636726- 6339 Aug, Acute epididymitis N45.1 [facility] [address] [place] [id number] [place] [address] 44504- 0360 Jul, Acute epididymitis N45.1 [facility] [address] [place] [id number] [place] [address] 666633- 8548 Jul, Acute epididymitis N45.1 [facility] [address] [place] [address] 27772- 0452 June, Lipoma of torso D17.1 [facility] [address] [place] [address] 85754- 8472 June, Epididymitis N45.1 and Low back pain M54.5 [facility] [address] [place] [id number] [place] [address] 33602- 5124 June, Acute epididymitis N45.1 [facility] [address] [address] 8596 May, Acute epididymitis N45.1 [facility] [address], [place] [address] 2546 May, Acute epididymitis N45.1 [facility] [address] [place] [id number] [place] [address] 64966- 2936 Apr, Acute epididymitis N45.1 [facility] [address] [place] [address] 28718- 9586 Apr, Acute epididymitis N45.1 [facility] [address] [place] [id number] [address]- 8146 Mar, [facility] [address] [place] [id number] [place] [address] 025083- 3530 Mar, Panic disorder F41.0 [facility] [address] 2609 Mar, Acute epididymitis N45.1 ; Attention deficit hyperactivity disorder (ADHD), predominantly inattentive type F90.0 and Sebaceous cyst of penis N48.89 [facility] [address] 7516 Mar, [facility] [address] [place] [address]- 3466 Feb, [facility] [address], [place] [address]- 8646 Feb, [facility] [address] [place] [id number] [address]- 8406 Jan, [facility] [address], [place] [address]- 7186 Jan, [facility] [address] [place] [address] 11213- 2267 Dec, [facility] [address] [place] [address]- 1468 Nov, [facility] [address] [place] [id number] [place] [address] 97304- 6137 Oct, [facility] [address] [place] [id number] [place] [address] 17354- 1789 Sep, [facility] [address] [place] [id number] [place] [address] 39820- 0667 Aug, [facility] [address] [place] [id number] [place] [address] 75647- 2507 Jul, Schizoaffective disorder, depressive type F25.1 [facility] [address] [place] [id number] [place] [address] 54521- 2138 June, Schizoaffective disorder, depressive type F25.1 ; Panic disorder F41.0 and Lumbago with sciatica, right side M54.41 [facility] [address] [place] [id number] [place] [address] 71723- 7828 June, Depressive disorder, not elsewhere classified F32.9 ; Unspecified psychosis F29 and 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 [facility] [address], [place] [address]- 3153 May, [facility] [address] [place] [id number] [place] [address] 56613- 8021 May, [facility] [address] [place] [id number] [place] [address] 81313- 2416 May, Lumbar neuritis M54.16 ; Thoracic neuritis M54.14 and Attention deficit hyperactivity disorder (ADHD), predominantly inattentive type F90.0 [facility] [address], [place] [address]- 5190 Apr, ADHD (attention deficit hyperactivity disorder), inattentive type F90.0 [facility] [address] [place] [id number] [place] [address] 89100- 9138 Mar, ADHD (attention deficit hyperactivity disorder), inattentive type F90.0 and Back pain M54.9 [place] [address] [place] [id number] [place] [address] 49857- 4336 Mar, Attention deficit hyperactivity disorder (ADHD), predominantly inattentive type F90.0 [place] [address] [place] [id number] [place] [address] 57362- 7835 Feb, Schizoaffective disorder, depressive type F25.1 and Panic disorder F41.0 [place] [address] [place] [id number] [place] [address] 89262- 6678 Feb, Attention deficit hyperactivity disorder (ADHD), predominantly inattentive type F90.0 ; Low back pain M54.5 and Sciatica, unspecified side M54.30 [place] [address] [place] [id number] [place] [address] 03889- 9465 Jan, [place] [address] [place] [id number] [place] [address] 66649- 6175 Jan, Schizoaffective disorder, depressive type F25.1 and Panic disorder F41.0 [place] [address] [place] [id number] [place] [address] 24863- 1334 Jan, Mood disorder F39 ; Bilateral low back pain with sciatica, sciatica laterality unspecified M54.40 ; ADHD (attention deficit hyperactivity disorder) F90.9 and Tobacco abuse Z72.0 [place] [address] [place] [id number] [place] [address] 56721- 3885 Dec, Low back pain M54.5 ; Sciatica, unspecified side M54.30 ; ADHD (attention deficit hyperactivity disorder), inattentive type F90.0 and Mood disorder F39 [place] [address] [place] [id number] [place] [address] 64966- 4664 May, Lateral malleolar fracture 824.2 [place] [address] [place] [id number] [place] [address] 30971- 7992 May, [facility] [place] [facility] [address] [id number] [place] [address]- 9590 May, [facility] [place] [facility] [address] [id number] [place] [address]- 0186 Apr, [facility] [place] [facility] [address] [id number] [place] [address]- 4346 Apr, [facility] [address] [place] [id number] Mar, [facility] [place] [facility] [address] [id number] [place] [address]- 3106 Mar, [facility] [place] [facility] [address] [id number] [place] [address]- 7746 Jan, [facility] [place] [facility] [address] [id number] [place] [address]- 8986 Jan, [facility] [place] [facility] [address] [id number] [place] [address]- 0926 Nov, [facility] [place] [facility] [address] [id number] [place] [address]- 4465 Nov, [facility] [place] [facility] [address] [id number] [place] [address]- 6426 Oct, [facility] [place] [facility] [address] [id number] [place] [address]- 8136 Oct, [facility] [place] [facility] [address] [id number] [place] [address]- 2756 Apr, [facility] [place] [facility] [address] [id number] [place] [address]- 6076 Apr, [facility] [address] [place] [id number] Apr, [facility] [place] [facility] [address] [id number] [place] [address]- 9266 Apr, [facility] [place] [facility] [address] [id number] [place] [address]- 7516 Nov, [facility] [place] [facility] [address] [facility] [id number] [place] 3928 Nov, [facility] [address] [facility] [id number] [place] [address]- 5269 Nov, [facility] [address] [facility] [id number] [id number] [address]178 Nov, IMMUNIZATIONS No Known Immunizations SOCIAL HISTORY Never Assessed REASON FOR VISIT Controlled Refill Request Due 09/04 PLAN OF CARE VITAL SIGNS MEDICATIONS Medication Instructions Dosage Frequency Start Date End Date Duration Status Tramadol HCl 50 MG Orally every 6 hrs 1 tablet as needed 6h Jan, 28 days Active Adderall 30 MG Orally 2 times a day 1 tablet 12h Aug, 28 days Active RESULTS No Results PROCEDURES [...]
--- OUTSIDE RECORDS SUMMARY | 2017-09-13 23:24 | XMS REPORT ---
Author Author ROSA DORAN [facility] Address [address] [place] [address] Care Team Providers Care Plasterer Spot Name Role Phone ROSA DORAN Unavailable PROBLEMS Type Condition ICD9-CM Code [id number] Code Onset Dates Condition Status SNOMED Code Problem Schizoaffective disorder, depressive type F25.1 Active 88480335 Problem Low back pain M54.5 Active 716621495 Problem Attention deficit hyperactivity disorder (ADHD), predominantly inattentive type F90.0 Active 93831525 Problem Depressive disorder, not elsewhere classified F32.9 Active 26295595 Problem Panic disorder F41.0 Active 376147559 Problem Sebaceous cyst of penis N48.89 Active 579390770834901 Problem Unspecified psychosis F29 Active 11785420 ALLERGIES Substance Reaction Event Type Date Status Penicillin V Potassium Unknown Drug Allergy June, Active ENCOUNTERS Encounter Location Date Diagnosis [place] [address] 60697- 5486 May, [place] [address] 60477- 9655 Apr, [place] [address] [place] [id number] [place] [address] 33227- 5186 Apr, Small bowel obstruction K56.609 [place] [address] [place] [id number] [place] [address] 64802- 9560 Mar, 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 [place] [address] 21702- 7152 Mar, Small bowel obstruction K56.609 [place] [address] [place] [id number] [place] [address] 44950- 1006 Feb, Small bowel obstruction K56.609 [facility] [address] [place] [address] 64084- 3306 Jan, [facility] [address] [place] [id number] [place] [address] 81635- 1346 Jan, Small bowel obstruction K56.609 [facility] [address] [place] [id number] [place] [address] 96784- 8746 Dec, Small bowel obstruction K56.609 [facility] [address] [place] [id number] [place] [address] 29595- 9847 Nov, Acute epididymitis N45.1 [facility] [address] [place] [id number] [place] [address] 22088- 5976 Nov, [facility] [address] [place] [id number] [place] [address] 49146- 9581 Nov, [facility] [address] [place] [id number] [place] [address] 79673- 9413 Oct, Acute epididymitis N45.1 [facility] [address] [place] [id number] [place] [address] 76044- 8098 Sep, Acute epididymitis N45.1 [facility] [address] [place] [id number] [place] [address] 47257- 2546 Aug, Acute epididymitis N45.1 [facility] [address] [place] [id number] [place] [address] 33229- 0423 Jul, Acute epididymitis N45.1 [facility] [address] [place] [id number] [place] [address] 66941- 2545 Jul, Acute epididymitis N45.1 [facility] [address] [place] [id number] [place] [address] 383228- 1786 June, Lipoma of torso D17.1 [facility] [address] [place] [address] 44780- 7956 June, Epididymitis N45.1 and Low back pain M54.5 [facility] [address], [place] [address]- 0222 June, Acute epididymitis N45.1 [facility] [address] [place] [id number] [place] [address] 497911- 4863 May, Acute epididymitis N45.1 [facility] [address], [place] [address]- 7086 May, Acute epididymitis N45.1 [facility] [address] [place] [id number] [place] [address] 206304- 8474 Apr, Acute epididymitis N45.1 [facility] [address] [place] [id number] [place] [address] 649882- 9082 Apr, Acute epididymitis N45.1 [facility] [address] [place] [address] 71327- 6965 Mar, [facility] [address] [place] [id number] [place] [address] 01949- 7736 Mar, Panic disorder F41.0 [facility] [address] [place] [address] 68815- 0458 Mar, Acute epididymitis N45.1 ; Attention deficit hyperactivity disorder (ADHD), predominantly inattentive type F90.0 and Sebaceous cyst of penis N48.89 [facility] [address], [place] [address]- 7774 Mar, [facility] [address], [place] [address]- 4925 Feb, [facility] [address] 6416 Feb, [facility] [address] [place] [address] 39048- 3316 Jan, [facility] [address]- 3286 Jan, [facility] [address] [place] [id number] [address]- 4201 Dec, [facility] [address] [place] [address] 14465- 0732 Nov, [facility] [address] [place] [id number] [address]- 5345 Oct, [facility] [address] [place] [id number] [place] [address] 10586- 9910 Sep, [facility] [address] [place] [id number] [place] [address] 82680- 1760 Aug, [facility] [address] [place] [id number] [place] [address] 41124- 8703 Jul, Schizoaffective disorder, depressive type F25.1 [place] [address] [place] [id number] [place] [address] 65122- 7026 June, Schizoaffective disorder, depressive type F25.1 ; Panic disorder F41.0 and Lumbago with sciatica, right side M54.41 [facility] [address] [place] [address] 75571- 4285 June, Depressive disorder, not elsewhere classified F32.9 ; Unspecified psychosis F29 and 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 [facility] [address], [place] [address]- 3012 May, [facility] [address] [place] [id number] [place] [address] 86676- 0346 May, [facility] [address], [place] [address]- 7229 May, Lumbar neuritis M54.16 ; Thoracic neuritis M54.14 and Attention deficit hyperactivity disorder (ADHD), predominantly inattentive type F90.0 [facility] [address], [place] [address]- 2714 Apr, ADHD (attention deficit hyperactivity disorder), inattentive type F90.0 [place] [address], [place] [address]- 2582 29 Mar, 2015 ADHD (attention deficit hyperactivity disorder), inattentive type F90.0 and Back pain M54.9 [place] [address] [place] [id number] [place] [address] 66204- 6086 Mar, Attention deficit hyperactivity disorder (ADHD), predominantly inattentive type F90.0 [place] [address] [place] [id number] [place] [address] 42518- 2548 Feb, Schizoaffective disorder, depressive type F25.1 and Panic disorder F41.0 [place] [address] 84491- 1564 Feb, Attention deficit hyperactivity disorder (ADHD), predominantly inattentive type F90.0 ; Low back pain M54.5 and Sciatica, unspecified side M54.30 [place] [address] [place] [id number] [place] [address] 41036- 0397 Jan, [place] [address] [place] [id number] [place] [address] 73427- 7900 Jan, Schizoaffective disorder, depressive type F25.1 and Panic disorder F41.0 [place] [address] [place] [id number] [place] [address] 88979- 4312 Jan, Mood disorder F39 ; Bilateral low back pain with sciatica, sciatica laterality unspecified M54.40 ; ADHD (attention deficit hyperactivity disorder) F90.9 and Tobacco abuse Z72.0 [place] [address] [place] [id number] [place] [address] 11460- 3508 Dec, Low back pain M54.5 ; Sciatica, unspecified side M54.30 ; ADHD (attention deficit hyperactivity disorder), inattentive type F90.0 and Mood disorder F39 [place] [address] [place] [address] 09348- 2227 May, Lateral malleolar fracture 824.2 [place] [address] [place] [address]- 1422 14 May, 2014 [facility] [place] [facility] [address] [id number] [place] [address]- 4266 May, [facility] [place] [facility] [address] [id number] [place] [address]- 5299 Apr, [facility] [place] [facility] [address] [id number] [place] [address]- 7791 Apr, [facility] [address] [place] [id number] Mar, [facility] [place] [facility] [address] [id number] [place] [address]- 1387 Mar, [facility] [place] [facility] [address] [id number] [place] [address]- 6626 Jan, [facility] [place] [facility] [address] [id number] [place] [address]- 7209 Jan, [facility] [place] [facility] [address] [id number] [place] [address]- 6995 Nov, [facility] [place] [facility] [address] [id number] [place] [address]- 2222 Nov, [facility] [place] [facility] [address] [id number] [place] [address]- 3599 Oct, [facility] [place] [facility] [address] [id number] [place] [address]- 7415 Oct, [facility] [place] [facility] [address] [id number] [place] [address]- 1233 Apr, [facility] [place] [facility] [address] [id number] [place] [address]- 5331 Apr, [facility] [address] [place] [id number] Apr, [facility] [place] [facility] [address] [id number] [place] [address]- 6183 Apr, [facility] [place] [facility] [address] [id number] [place] [address]- 0073 Nov, [facility] [address] [facility] [id number] [place] [address]- 1777 Nov, [facility] [address] [facility] [id number] [place] [address]- 1966 Nov, [facility] [address] [facility] [id number] [place] [address]- 3992 Nov, IMMUNIZATIONS No Known Immunizations SOCIAL HISTORY Never Assessed REASON FOR VISIT Cyst removal. KBoleRN PLAN OF CARE Activity Details Follow Up 7 days Reason:suture removal VITAL SIGNS Height 70 in 2016-07-07 Weight 146.6 lbs 2016-07-07 Temperature 98.1 degrees Fahrenheit 2016-07-07 Heart Rate 76 bpm 2016-07-07 Respiratory Rate 20 2016-07-07 BMI 21.03 kg/m2 2016-07-07 Blood pressure systolic 130 mmHg 2016-07-07 Blood pressure diastolic 88 mmHg 2016-07-07 MEDICATIONS Medication Instructions Dosage Frequency Start Date End Date Duration Status Tramadol HCl 50 MG Orally every 6 hrs 1 tablet as needed 6h Jan, 28 days Active Adderall 30 MG Orally 2 times a day 1 tablet 12h June, 28 days Active RESULTS No Results PROCEDURES Procedure Date Ordered Result Body Site EXC BENIGN LEISON 1.1-2 cm (specify location) 2016-07-07 N/A EXC TR-EXT B9 INDIRA 1.1-2 CM July 07, 2016 INSTRUCTIONS MEDICATIONS ADMINISTERED No Known Medications MEDICAL [...]
--- OUTSIDE RECORDS SUMMARY | 2017-09-13 23:24 | XMS REPORT ---
Author Author ROSA DORAN Organization [facility] Address [address] [place] [address] Care Team Providers Care Drag Seiner Name Role Phone ROSA DORAN Unavailable PROBLEMS Type Condition ICD9-CM Code [id number] Code Onset Dates Condition Status SNOMED Code Problem Schizoaffective disorder, depressive type F25.1 Active 51392795 Problem Low back pain M54.5 Active 050991235 Problem Attention deficit hyperactivity disorder (ADHD), predominantly inattentive type F90.0 Active 99985478 Problem Depressive disorder, not elsewhere classified F32.9 Active 48066779 Problem Panic disorder F41.0 Active 139916361 Problem Sebaceous cyst of penis N48.89 Active 085202376930188 Problem Unspecified psychosis F29 Active 88256645 ALLERGIES No Information ENCOUNTERS Encounter Location Date Diagnosis [place] [address] [address]- [address]102 Apr, [place] [address] 42035- 0297 Apr, Small bowel obstruction K56.609 [place] [address] [place] [id number] [place] [address] 04244- 5742 Mar, 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 [place] [address] [place] [id number] [place] [address] 25397- 1786 Mar, Small bowel obstruction K56.609 [place] [address] 46597- 9683 Feb, Small bowel obstruction K56.609 [place] [address] [place] [id number] [place] [address] 30047- 5637 Jan, [place] [address] 04437- 1079 Jan, Small bowel obstruction K56.609 [facility] [address] [place] [id number] [place] [address] 74185- 6263 Dec, Small bowel obstruction K56.609 [facility] [address] [place] [address] 00290- 2425 Nov, Acute epididymitis N45.1 [facility] [address] [place] [id number] [place] [address] 50583- 8356 Nov, [facility] [address] [place] [id number] [place] [address] 97500- 7674 Nov, [facility] [address] [place] [id number] [place] [address] 14039- 3199 Oct, Acute epididymitis N45.1 [facility] [address] [place] [id number] [place] [address] 25631- 4830 Sep, Acute epididymitis N45.1 [facility] [address] [place] [id number] [place] [address] 87442- 7562 Aug, Acute epididymitis N45.1 [facility] [address] [place] [id number] [place] [address] 91202- 9554 Jul, Acute epididymitis N45.1 [facility] [address] [place] [address] 04267- 2819 Jul, Acute epididymitis N45.1 [facility] [address] [place] [id number] [place] [address] 68341- 0565 June, Lipoma of torso D17.1 [facility] [address] [place] [id number] [place] [address] 10295- 5503 June, Epididymitis N45.1 and Low back pain M54.5 [facility] [address] [place] [address] 57186- 3931 June, Acute epididymitis N45.1 [facility] [address] [place] [id number] [address] 9213 May, Acute epididymitis N45.1 [facility] [address] [place] [id number] [place] [address] 953833- 0481 May, Acute epididymitis N45.1 [facility] [address] [place] [id number] [place] [address] 886781- 6886 Apr, Acute epididymitis N45.1 [facility] [address] [place] [id number] [place] [address] 184559- 6520 Apr, Acute epididymitis N45.1 [facility] [address] [place] [id number] [place] [address] 311818- 5516 Mar, [facility] [address] [place] [id number] [place] [address] 67093- 6449 Mar, Panic disorder F41.0 [facility] [address] [place] [id number] [place] [address] 86611- 5253 Mar, Acute epididymitis N45.1 ; Attention deficit hyperactivity disorder (ADHD), predominantly inattentive type F90.0 and Sebaceous cyst of penis N48.89 [facility] [address] [place] [id number] [place] [address] 88330- 9314 Mar, [facility] [address] [place] [address] 34484- 1624 Feb, [facility] [address] [place] [id number] [place] [address] 95136- 6043 Feb, [facility] [address] [place] [id number] [place] [address] 416624- 6390 Jan, [facility] [address] [place] [id number] [place] [address] 80683- 7746 Jan, [facility] [address] [address]- 6216 Dec, [facility] [address] [place] [id number] [place] [address] 44462- 6725 Nov, [facility] [address] [place] [address] 80182- 3409 Oct, [facility] [address] [place] [id number] [place] [address] 81491- 5259 Sep, [facility] [address] [place] [id number] [place] [address] 88518- 0986 Aug, [facility] [address] [place] [id number] [place] [address] 22929- 3004 Jul, Schizoaffective disorder, depressive type F25.1 [place] [address] [place] [id number] [place] [address] 04507- 6327 June, Schizoaffective disorder, depressive type F25.1 ; Panic disorder F41.0 and Lumbago with sciatica, right side M54.41 [place] [address] [place] [id number] [place] [address] 64246- 1041 June, Depressive disorder, not elsewhere classified F32.9 ; Unspecified psychosis F29 and 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 [facility] [address] [place] [id number] [place] [address] 54065- 0122 May, [facility] [address] [place] [id number] [place] [address] 68775- 4961 May, [facility] [address] [place] [id number] [place] [address] 45380- 6687 May, Lumbar neuritis M54.16 ; Thoracic neuritis M54.14 and Attention deficit hyperactivity disorder (ADHD), predominantly inattentive type F90.0 [facility] [address] [place] [id number] [place] [address] 34796- 3485 Apr, ADHD (attention deficit hyperactivity disorder), inattentive type F90.0 [facility] [address] [place] [id number] [place] [address] 82786- 5734 Mar, ADHD (attention deficit hyperactivity disorder), inattentive type F90.0 and Back pain M54.9 [facility] [address] [place] [id number] [place] [address] 69340- 1944 Mar, Attention deficit hyperactivity disorder (ADHD), predominantly inattentive type F90.0 [facility] [address] [place] [id number] [place] [address] 99524- 0016 Feb, Schizoaffective disorder, depressive type F25.1 and Panic disorder F41.0 [facility] [address] 88214- 1206 Feb, Attention deficit hyperactivity disorder (ADHD), predominantly inattentive type F90.0 ; Low back pain M54.5 and Sciatica, unspecified side M54.30 [place] [address] [place] [id number] [place] [address] 45798- 5703 Jan, [place] [address] [place] [id number] [place] [address] 72395- 2633 Jan, Schizoaffective disorder, depressive type F25.1 and Panic disorder F41.0 [facility] [address] [place] [id number] [place] [address] 88035- 0369 Jan, Mood disorder F39 ; Bilateral low back pain with sciatica, sciatica laterality unspecified M54.40 ; ADHD (attention deficit hyperactivity disorder) F90.9 and Tobacco abuse Z72.0 [facility] [address] [place] [id number] [place] [address] 51400- 5511 Dec, Low back pain M54.5 ; Sciatica, unspecified side M54.30 ; ADHD (attention deficit hyperactivity disorder), inattentive type F90.0 and Mood disorder F39 [facility] [address] [place] [id number] [place] [address] 38061- 3729 May, Lateral malleolar fracture 824.2 [facility] [address] [place] [id number] [place] [address] 49025- 5929 May, [facility] [address] 50364- 8648 May, [facility] [address] [id number] [place] [address]- 8392 Apr, [facility] [place] [facility] [address] [id number] [place] [address]- 7476 Apr, [facility] [address] [place] [id number] Mar, [facility] [place] [facility] [address] [id number] [place] [address]- 0866 Mar, [facility] [place] [facility] [address] [id number] [place] 5463 Jan, [facility] [place] [facility] [address] [id number] [place] [address]- 5376 Jan, [facility] [place] [facility] [address] [id number] [place] [address]- 7516 Nov, [facility] [place] [facility] [address] [id number] [place] [address]- 8944 Nov, [facility] [place] [facility] [address] [id number] [place] [address]- 8299 Oct, [facility] [place] [facility] [address] [id number] [place] [address]- 6326 Oct, [facility] [place] [facility] [address] [id number] [place] [address]- 8057 Apr, [facility] [place] [facility] [address] [id number] [place] [address]- 8874 Apr, [facility] [address] [place] [id number] Apr, [facility] [place] [facility] [address] [id number] [place] [address]- 0616 Apr, [facility] [place] [facility] [address] [id number] [place] [address]- 6286 Nov, [facility] [place] [facility] [address] [id number] [place] [address]- 1306 Nov, [facility] [place] [facility] [address] [facility] [id number] [place] [address]- 6611 Nov, [facility] [address] [facility] [id number] [place] [address]- 7879 Nov, IMMUNIZATIONS No Known Immunizations SOCIAL HISTORY Never Assessed REASON FOR VISIT Controlled Med Refill PLAN OF CARE VITAL SIGNS MEDICATIONS Medication Instructions Dosage Frequency Start Date End Date Duration Status Adderall 30 MG Orally 2 times a day 1 tablet 12h Oct, 28 days Active Tramadol HCl 50 MG Orally every 6 [...]
--- OUTSIDE RECORDS SUMMARY | 2017-09-13 23:24 | XMS REPORT ---
Author Author ROSA DORAN [facility] Address [address] [place] [address] Care Team Providers Care Otr Owner Operator Name Role Phone ROSA DORAN Unavailable PROBLEMS Type Condition ICD9-CM Code CKR20-TT Code Onset Dates Condition Status SNOMED Code Problem Schizoaffective disorder, depressive type F25.1 Active 43191313 Problem Low back pain M54.5 Active 542501597 Problem Attention deficit hyperactivity disorder (ADHD), predominantly inattentive type F90.0 Active 75513307 Problem Depressive disorder, not elsewhere classified F32.9 Active 74927706 Problem Panic disorder F41.0 Active 475054270 Problem Sebaceous cyst of penis N48.89 Active 807642160650208 Problem Unspecified psychosis F29 Active 40843999 ALLERGIES No Information SOCIAL HISTORY Never Assessed PLAN OF CARE VITAL SIGNS MEDICATIONS Medication Instructions Dosage Frequency Start Date End Date Duration Status Adderall 30 MG Orally 2 times a day 1 tablet 12h Jul, 28 days Active RESULTS No Results PROCEDURES [...]
--- OUTSIDE RECORDS SUMMARY | 2017-09-13 23:25 | XMS REPORT ---
Author Author PUMA DOOLEY [facility] Address [address] [place] [address] Care Team Providers Care Newspaper Photo Editor Name Role Phone PUMA DOOLEY Unavailable PROBLEMS Type Condition ICD9-CM Code PKQ84-XU Code Onset Dates Condition Status SNOMED Code Problem Schizoaffective disorder, depressive type F25.1 Active 87753808 Problem Low back pain M54.5 Active 209753436 Problem Attention deficit hyperactivity disorder (ADHD), predominantly inattentive type F90.0 Active 73408975 Problem Depressive disorder, not elsewhere classified F32.9 Active 94023131 Problem Panic disorder F41.0 Active 657837268 Problem Sebaceous cyst of penis N48.89 Active 964678776705348 Problem Unspecified psychosis F29 Active 26662701 ALLERGIES No Information ENCOUNTERS Encounter Location Date Diagnosis [place] [address] 9[address]62- 3578 Apr, [place] [address] [place] [id number] [place] [address] 50841- 1926 Apr, Small bowel obstruction K56.609 [place] [address] [place] [id number] [place] [address] 92685- 5839 Mar, [facility] current use of opiate analgesic Z79.891 [place] [address] [place] [id number] [place] [address] 54967- 2476 Mar, Small bowel obstruction K56.609 [place] [address] [place] [id number] [place] [address] 22871- 3608 Feb, Small bowel obstruction K56.609 [place] [address] [place] [id number] [place] [address] 00230- 1908 Jan, [place] [address] [place] [address]- 7921 Jan, Small bowel obstruction K56.609 [facility] [address] [place] [id number] [place] [address] 395046- 4552 Dec, Small bowel obstruction K56.609 [facility] [address] [place] [address] 10902- 0976 Nov, Acute epididymitis N45.1 [facility] [address] [place] [id number] [place] [address] 49654- 3925 Nov, [facility] [address] [place] [id number] [place] [address] 21081- 8829 Nov, [facility] [address] [place] [id number] [place] [address] 31059- 7205 Oct, Acute epididymitis N45.1 [facility] [address] [place] [id number] [place] [address] 87458- 7147 Sep, Acute epididymitis N45.1 [facility] [address] [place] [id number] [place] [address] 65900- 6488 Aug, Acute epididymitis N45.1 [facility] [address] [place] [id number] [place] [address] 72558- 0779 Jul, Acute epididymitis N45.1 [facility] [address] [place] [id number] [place] [address] 69454- 6457 Jul, Acute epididymitis N45.1 [facility] [address] [place] [id number] [place] [address] 80015- 8923 June, Lipoma of torso D17.1 [facility] [address] [place] [id number] [place] [address] 43962- 2084 June, Epididymitis N45.1 and Low back pain M54.5 [facility] [address] [place] [address] 64251- 0030 June, Acute epididymitis N45.1 [facility] [address] [place] [id number] [place] [address] 52834- 3195 May, Acute epididymitis N45.1 [facility] [address] [place] [id number] [place] [address] 61318- 3474 May, Acute epididymitis N45.1 [facility] [address] [place] [id number] [place] [address] 98840- 3417 Apr, Acute epididymitis N45.1 [facility] [address] [place] [id number] [place] [address] 58451- 2274 Apr, Acute epididymitis N45.1 [facility] [address] [place] [id number] [place] [address] 54180- 3754 Mar, [facility] [address] [place] [id number] [place] [address] 41333- 8193 Mar, Panic disorder F41.0 [facility] [address] [place] [id number] [place] [address] 04131- 3698 Mar, Acute epididymitis N45.1 ; Attention deficit hyperactivity disorder (ADHD), predominantly inattentive type F90.0 and Sebaceous cyst of penis N48.89 [facility] [address] [place] [id number] [place] [address] 63749- 9517 Mar, [facility] [address] [place] [id number] [place] [address] 40383- 0113 Feb, [facility] [address] [place] [id number] [place] [address] 57007- 9308 Feb, [facility] [address] [place] [id number] [place] [address] 61229- 2587 Jan, [facility] [address] [place] [id number] [place] [address] 742685- 4765 Jan, [facility] [address] [place] [id number] [place] [address] 95893- 4671 Dec, [facility] [address] [place] [id number] [place] [address] 64567- 7672 Nov, [facility] [address] [place] [address] 86656- 1655 Oct, [facility] [address] [place] [id number] [place] [address] 597319- 6861 Sep, [facility] [address] [place] [id number] [place] [address] 96059- 6822 Aug, [facility] [address] [place] [id number] [place] [address] 40094- 0637 Jul, Schizoaffective disorder, depressive type F25.1 [place] [address] [place] [id number] [place] [address] 98303- 2230 June, Schizoaffective disorder, depressive type F25.1 ; Panic disorder F41.0 and Lumbago with sciatica, right side M54.41 [place] [address] [place] [id number] [place] [address] 79326- 3026 June, Depressive disorder, not elsewhere classified F32.9 ; Unspecified psychosis F29 and 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 [place] [address] [place] [id number] [place] [address] 48347- 1062 May, [facility] [address] [place] [id number] [place] [address] 24242- 6222 May, [facility] [address] [place] [id number] [place] [address] 92739- 3055 May, Lumbar neuritis M54.16 ; Thoracic neuritis M54.14 and Attention deficit hyperactivity disorder (ADHD), predominantly inattentive type F90.0 [facility] [address] [place] [id number] [place] [address] 56701- 7571 Apr, ADHD (attention deficit hyperactivity disorder), inattentive type F90.0 [facility] [address] [place] [id number] [place] [address] 27332- 9649 Mar, ADHD (attention deficit hyperactivity disorder), inattentive type F90.0 and Back pain M54.9 [facility] [address] [place] [address] 19412- 9519 Mar, Attention deficit hyperactivity disorder (ADHD), predominantly inattentive type F90.0 [facility] [address] [place] [id number] [place] [address] 01142- 2624 Feb, Schizoaffective disorder, depressive type F25.1 and Panic disorder F41.0 [facility] [address] [place] [id number] [place] [address] 83950- 4545 Feb, Attention deficit hyperactivity disorder (ADHD), predominantly inattentive type F90.0 ; Low back pain M54.5 and Sciatica, unspecified side M54.30 [facility] [address] [place] [id number] [place] [address] 75084- 4502 Jan, [facility] [address] [place] [id number] [place] [address] 02681- 2169 Jan, Schizoaffective disorder, depressive type F25.1 and Panic disorder F41.0 [facility] [address] [place] [id number] [place] [address] 47995- 0242 Jan, Mood disorder F39 ; Bilateral low back pain with sciatica, sciatica laterality unspecified M54.40 ; ADHD (attention deficit hyperactivity disorder) F90.9 and Tobacco abuse Z72.0 [facility] [address] [place] [id number] [place] [address] 71138- 6935 Dec, Low back pain M54.5 ; Sciatica, unspecified side M54.30 ; ADHD (attention deficit hyperactivity disorder), inattentive type F90.0 and Mood disorder F39 [facility] [address] [place] [id number] [place] [address] 10977- 8997 May, Lateral malleolar fracture 824.2 [facility] [address] [place] [id number] [place] [address] 05839- 7092 May, [facility] [address] [place] [id number] [place] [address] 67455- 6317 May, [facility] [place] [facility] [address] [id number] [place] [address]- 4821 Apr, [facility] [place] [facility] [address] [id number] [place] [address]- 2516 Apr, [facility] [address] [id number] Mar, [facility] [place] [facility] [address] [id number] [place] [address]- 6440 Mar, [facility] [place] [facility] [address] [id number] [place] [address]- 6477 Jan, [facility] [place] [facility] [address] [id number] [place] [address]- 1308 Jan, [facility] [place] [facility] [address] [id number] [place] [address]- 6596 Nov, [facility] [place] [facility] [address] [id number] [place] [address]- 9508 Nov, [facility] [place] [facility] [address] [id number] [place] [address]- 0181 Oct, [facility] [place] [facility] [address] [id number] [place] [address]- 0992 Oct, [facility] [place] [facility] [address] [id number] [place] [address]- 8962 Apr, [facility] [place] [facility] [address] [id number] [place] [address]- 3858 Apr, [facility] [address] [id number] Apr, [facility] [place] [facility] [address] [id number] [place] [address]- 2014 Apr, [facility] [place] [facility] [address] [id number] [place] [address]- 9796 Nov, [facility] [place] [facility] [address] [id number] [place] 0481 Nov, [facility] [address] [facility] [id number] [place] [address]- 2261 Nov, [facility] [address] [facility] [id number] [address]- 1294 Nov, IMMUNIZATIONS No Known Immunizations SOCIAL HISTORY Never Assessed REASON FOR VISIT Controlled Med Refill PLAN OF CARE VITAL SIGNS MEDICATIONS Medication Instructions Dosage Frequency Start Date End Date Duration Status Tramadol HCl 50 MG Orally every 6 hrs 1 tablet as needed 6h Jan, 28 days Active Adderall 30 MG Orally 2 times a day 1 tablet 12h Sep, 28 days Active RESULTS No Results PROCEDURES [...]
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
[2017-09-13 23:47] VITALS: BP 133/87
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
--- NOTE | 2017-09-14 07:51 | Diagnostic Imaging Report ---
INDICATION: Pain. FINDINGS: There is no fracture, dislocation or acute articular incongruity. Arthritic changes noted chronic. IMPRESSION: No acute appearing abnormality. Dictated by: Dictated on workstation # [id number]
== END 2017-09-13 23:50 | disposition home or self-care (01) ==
LOC: EDUNIT# 21:08 → ER 21:09
DX: M25.512 Pain in left shoulder (principal); J44.9 Chronic obstructive pulmonary disease, unspecified; R40.2142 Coma scale, eyes open, spontaneous, at arrival to emergency department; R40.2252 Coma scale, best verbal response, oriented, at arrival to emergency department; R40.2362 Coma scale, best motor response, obeys commands, at arrival to emergency department; F17.210 Nicotine dependence, cigarettes, uncomplicated; Z88.0 Allergy status to penicillin; Z87.19 Personal history of other diseases of the digestive system; Z91.5 Personal history of self-harm; V18.4XXA Pedal cycle driver injured in noncollision transport accident in traffic accident, initial encounter
CPT/HCPCS: 70450; 72125; 73030

== ENCOUNTER 2018-03-20 14:05 | Observation (INO) | payer MEDICAID ==
[~2018-03-20] VITALS: Ht 179.1 cm; Wt 65.9 kg
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
[2018-03-20] MEDS ORDERED: KETOROLAC 30 MG/ML VIAL IVP ONE (14:30)
[2018-03-20] MEDS ORDERED: PHENAZOPYRIDINE 100 MG (PYRIDIUM) TABLET PO ONE ×2 (14:30→15:00)
[2018-03-20] MEDS ORDERED: NS IV 1000 ML 1,000 ML IV SCH (14:30)
[2018-03-20] MEDS ORDERED: cefTRIAXone FOR IV USE 1,000 MG in WATER (STERILE) FOR INJECTION 10 ML IV ONE (14:30)
[2018-03-20 14:31] LABS: BASOPHILS # (AUTO) 0.1 10^3/uL (0.0-0.1); BASOPHILS % (AUTO) 0 % (0-10); EOSINOPHILS % (AUTO) 0 % (0-10); HEMATOCRIT 43 % (40-54); HEMOGLOBIN 14.1 G/DL (13.3-17.7); LYMPHOCYTES # (AUTO) 3.6 X 10^3 (1.0-4.0); LYMPHOCYTES % (AUTO) 13 % (12-44); MEAN CORPUSCULAR HEMOGLOBIN 31 PG (25-34); MEAN CORPUSCULAR HGB CONC 33 G/DL (32-36); MEAN CORPUSCULAR VOLUME 94 FL (80-99); MONOCYTES # (AUTO) 4.3 X 10^3 (0.0-1.0); MONOCYTES % (AUTO) 15 % (0-12); NEUTROPHILS # (AUTO) 19.9 X 10^3 (1.8-7.8); NEUTROPHILS % (AUTO) 71 % (42-75); PLATELET COUNT 161 10^3/uL (130-400); RED CELL DISTRIBUTION WIDTH 14.7 % (10.0-14.5); WHITE BLOOD COUNT 27.9 10^3/uL (4.3-11.0)
--- NOTE | 2018-03-20 14:48 | Diagnostic Imaging Report ---
PROCEDURE: CT head without contrast. TECHNIQUE: Multiple contiguous axial images were obtained through the brain without the use of intravenous contrast. INDICATION: Headache and fever. COMPARISON: Comparison is made with prior head CT from 09/13/2017. FINDINGS: Ventricles and sulci are within normal limits. No sulcal effacement is seen. There is no midline shift. No acute intra-axial or extra-axial hemorrhage is detected. Cisterns are patent. Visualized paranasal sinuses appear clear apart from minimal mucosal thickening in the maxillary sinuses bilaterally. IMPRESSION: No acute intracranial process is detected. Dictated by: Dictated on workstation # [id number]
[2018-03-20 14:50] LABS: ALANINE AMINOTRANSFERASE 69 U/L (0-55); ALBUMIN 3.6 GM/DL (3.2-4.5); ALKALINE PHOSPHATASE 109 U/L (40-136); BILIRUBIN,TOTAL 1.2 MG/DL (0.1-1.0); BUN/CREATININE RATIO 13; CARBON DIOXIDE 26 MMOL/L (21-32); CHLORIDE 100 MMOL/L (98-107); CREATININE SERUM 0.84 MG/DL (0.60-1.30); GFR ESTIMATED > 60; GLUCOSE 93 MG/DL (70-105); POTASSIUM 3.9 MMOL/L (3.6-5.0); SODIUM 134 MMOL/L (135-145); TOTAL PROTEIN 7.3 GM/DL (6.4-8.2)
[2018-03-20 14:55] LABS: BILIRUBIN,URINE NEGATIVE (NEGATIVE); GLUCOSE, URINE (UA) NEGATIVE (NEGATIVE); KETONES,URINE NEGATIVE (NEGATIVE); LEUKOCYTE ESTERASE ,URINE 3+ (NEGATIVE); NITRITE,URINE NEGATIVE (NEGATIVE); PH,URINE 5 (5-9); PROTEIN,URINE 2+ (NEGATIVE); UROBILINOGEN,URINE NORMAL (NORMAL)
--- NOTE | 2018-03-20 14:56 | Diagnostic Imaging Report ---
INDICATION: Head pain, fever, difficulty urinating, previous splenectomy. FINDINGS: Lungs are hyperexpanded but clear. No failure, effusion or pneumothorax. No free air beneath the diaphragms. IMPRESSION: Clear hyperexpanded lungs, otherwise negative. Dictated by: Dictated on workstation # [id number]
[2018-03-20 14:57] LABS: COLOR,URINE YELLOW
[2018-03-20 15:01] LABS: BACTERIA,URINE MODERATE /HPF; CLARITY,URINE SLIGHTLY CLOUDY; WBC,URINE TNTC /HPF
[2018-03-20 15:13] LABS: LYMPHOCYTES % (MANUAL) 9 %; MONOCYTES % (MANUAL) 6 %; NEUTROPHILS % (MANUAL) 85 %; RBC MORPH NORMAL
--- NOTE | 2018-03-20 15:17 | Diagnostic Imaging Report ---
PROCEDURE: CT urinary tract, rule out kidney stone. TECHNIQUE: Multiple contiguous axial images were obtained through the abdomen and pelvis without the use of intravenous contrast. INDICATION: Head pain, fever, difficulty with urination. History of splenectomy. FINDINGS: There is thickening of the urinary bladder jaramillo. There is only a small amount of fluid within the bladder lumen. There is no evidence for hydronephrosis. There is a cyst in the right renal midpole with a diameter of 3.2 cm. There is a 3 mm stone within a right lower pole calyx. No perinephric or periureteric edema. No opaque stones along the course of either ureter. Pelvic phleboliths noted, extra ureteral. There is no ascites, abscess, hematoma or other fluid collection. There is no pneumatosis or free gas. There are multiple small stones within the gallbladder lumen. The gallbladder is nondilated. There is no bile duct dilatation. Spleen is absent. No evidence for splenosis. The pancreas had an unremarkable appearance. There is no edema of the peripancreatic fat. The aortoiliac vessels are calcified but are nonaneurysmal. The osseous structures and the lung bases appear nonacute. IMPRESSION: 1. Small amount of fluid within the bladder lumen. The bladder wall is significantly thickened, diffusely. There is a right renal cortical cyst and a nonobstructing right renal calculus. The kidneys appear otherwise unremarkable. There is no hydronephrosis. 2. Cholelithiasis without bile duct dilatation. Dictated by: Dictated on workstation # [id number]
[2018-03-20 16:21] LABS: AMPHETAMINE SCREEN, URINE POSITIVE (NEGATIVE); BARBITURATE SCREEN URINE NEGATIVE (NEGATIVE); BENZODIAZEPINES SCREEN URINE NEGATIVE (NEGATIVE); CANNABINOID SCREEN, URINE NEGATIVE (NEGATIVE); COCAINE SCREEN URINE NEGATIVE (NEGATIVE); METHADONE STAT NEGATIVE (NEGATIVE); METHAMPHETAMINE SCREEN URINE S POSITIVE (NEGATIVE); OPIATE SCREEN URINE NEGATIVE (NEGATIVE); OXYCODONE STAT NEGATIVE (NEGATIVE); PROPOXYPHENE STAT NEGATIVE (NEGATIVE); TRICYCLIC ANTIDEPRESSANTS SCRE NEGATIVE (NEGATIVE)
--- NOTE | 2018-03-20 16:26 | NUR ---
Attempted to call report.
--- NOTE | 2018-03-20 16:50 | NUR ---
ROSA ALEXANDER admitted to room 409-1, with an admitting diagnosis of PYELONEPHRITIS, on 03/20/18 from ED via , accompanied by STAFF. ROSA ALEXANDER introduced to surroundings, call light, bed controls, phone, TV, temperature control, lights, meal times, smoking policy, visitor policy, side rail policy, bathrooms and showers. Patient Rights given to patient in the handbook. ROSA ALEXANDER verbalizes understanding that [facility] is not responsible for the loss or damage to any personal effects or valuables that are kept in the patients posession during their hospitalization. ROSA ALEXANDER verbalizes understanding of Interdisciplinary Patient Education. Patient and/or family were informed about the Rapid Response Team and its purpose.
[2018-03-20 16:53] VITALS: BP 123/70
[2018-03-20 20:00] VITALS: BP 116/66
[2018-03-20] MEDS ORDERED: ONDANSETRON 4 MG/2 ML (SDV) Z0FRAN IV PRN (20:30)
[2018-03-20] MEDS ORDERED: KETOROLAC 15 MG/ML VIAL IVP PRN (20:30)
[2018-03-20] MEDS ORDERED: ACETAMINOPHEN 500 MG TAB (TYLENOL) PO PRN (20:30)
[2018-03-20] MEDS: LACTATED RINGERS 1,000 ML IV SCH (21:11)
[2018-03-20] MEDS: POLYETHYLENE GLYCOL 17 GM (MIRALAX) PACK PO SCH (21:11)
[2018-03-20] MEDS ORDERED: NICOTINE 21 MG (NICODERM) PATCH TD ONE (23:45)
[2018-03-21 00:57] VITALS: BP 117/57
[2018-03-21] MEDS: LACTATED RINGERS 1,000 ML IV SCH ×2 (04:40→12:37)
[2018-03-21 04:52] VITALS: BP 133/78
[2018-03-21 06:07] LABS: BASOPHILS % (AUTO) 0 % (0-10); EOSINOPHILS # (AUTO) 0.1 10^3/uL (0.0-0.3); EOSINOPHILS % (AUTO) 1 % (0-10); HEMATOCRIT 41 % (40-54); HEMOGLOBIN 13.7 G/DL (13.3-17.7); LYMPHOCYTES # (AUTO) 2.5 X 10^3 (1.0-4.0); LYMPHOCYTES % (AUTO) 14 % (12-44); MEAN CORPUSCULAR HEMOGLOBIN 32 PG (25-34); MEAN CORPUSCULAR HGB CONC 34 G/DL (32-36); MEAN CORPUSCULAR VOLUME 95 FL (80-99); MEAN PLATELET VOLUME 14.2 FL (7.4-10.4); MONOCYTES % (AUTO) 18 % (0-12); NEUTROPHILS # (AUTO) 11.4 X 10^3 (1.8-7.8); NEUTROPHILS % (AUTO) 67 % (42-75); PLATELET COUNT 132 10^3/uL (130-400); RED CELL DISTRIBUTION WIDTH 14.6 % (10.0-14.5)
[2018-03-21 06:30] LABS: ALANINE AMINOTRANSFERASE 62 U/L (0-55); ALBUMIN 3.3 GM/DL (3.2-4.5); ALKALINE PHOSPHATASE 87 U/L (40-136); BILIRUBIN,TOTAL 0.7 MG/DL (0.1-1.0); BUN/CREATININE RATIO 18; CALCIUM 8.6 MG/DL (8.5-10.1); CARBON DIOXIDE 21 MMOL/L (21-32); CHLORIDE 104 MMOL/L (98-107); CREATININE SERUM 0.72 MG/DL (0.60-1.30); GFR ESTIMATED > 60; GLUCOSE 104 MG/DL (70-105); POTASSIUM 4.1 MMOL/L (3.6-5.0); SODIUM 136 MMOL/L (135-145); TOTAL PROTEIN 6.7 GM/DL (6.4-8.2)
[2018-03-21 08:00] VITALS: BP 147/78
[2018-03-21] MEDS ORDERED: FLU QUADRIvalent (5+ YOA) 2018-2019 (AFLURIA) 0.5 ML IM ONE (08:00)
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
[2018-03-21] MEDS ORDERED: NICOTINE 21 MG (NICODERM) PATCH TD SCH (09:00)
[2018-03-21] MEDS: POLYETHYLENE GLYCOL 17 GM (MIRALAX) PACK PO SCH (09:20)
[2018-03-21] MEDS ORDERED: CEFD300C3 PO (09:41)
[2018-03-21 12:00] VITALS: BP 144/78
[2018-03-21] MEDS ORDERED: cefTRIAXone 1,000 MG/SWFI 10 ML IV PUSH IV SCH ×2 (14:30)
== END 2018-03-21 09:41 | disposition home or self-care (01) ==
LOC: EDUNIT# 14:05 → ER 14:06 → UNDOADMOB 14:53 → 4TH 14:53 → UNDODISOB 03-21 13:00
PROVIDERS: ADMIT Family Medicine; ATTEND Family Medicine
DX: N30.90 Cystitis, unspecified without hematuria (principal); J44.9 Chronic obstructive pulmonary disease, unspecified; F17.210 Nicotine dependence, cigarettes, uncomplicated; N20.0 Calculus of kidney; K80.70 Calculus of gallbladder and bile duct without cholecystitis without obstruction; F15.10 Other stimulant abuse, uncomplicated; R74.8 Abnormal levels of other serum enzymes
CPT/HCPCS: 36415; 70450; 71046; 74176; 80053; 80306; 81000; 83605; 85007; 85025; 85027; 87040; 87077; 87088; 87186; 87804; 90471; 90686; G0378

== ENCOUNTER 2018-04-07 20:02 | Emergency (ER) | payer MEDICAID ==
[~2018-04-07] VITALS: Ht 177.8 cm; Wt 63.5 kg
[~2018-04-07 20:02] MED LIST changes: +CEFD300C3 PO
--- NOTE | 2018-04-07 20:22 | ED GU-Male ---
General Stated Complaint: BLOOD IN URINE Source: patient Exam Limitations: no limitations History of Present Illness Date Seen by Provider: Apr 07, 2018 Time Seen by Provider: 20:20 Initial Comments To ER with hematuria times one last night. He's had fevers and chills and burning on urination today. No hematuria today. Recently admitted earlier this month for pyelonephritis, urine culture showed Escherichia coli. He was discharged home on Omnicef. Timing/Duration: constant Severity/Quality: moderate Location: suprapubic Radiation: none Activities at Onset: none Associated Symptoms: dysuria, fever/chills; No nausea/vomiting; urinary frequency Allergies and Home Medications Allergies Coded Allergies: Penicillins (Verified Allergy, Mild, 03/20/18) Home Medications Cefdinir 300 Mg Capsule, 300 MG PO BID Prescribed by: XIOMARA SORIANO on 03/21/18 0941 Patient Home Medication List Home Medication List Reviewed: Yes Review of Systems Review of Systems Constitutional: see HPI, chills, fever EENTM: see HPI Respiratory: no symptoms reported Cardiovascular: no symptoms reported Genitourinary: see HPI, dysuria, frequency, hematuria, pain Musculoskeletal: no symptoms reported Skin: no symptoms reported Psychiatric/Neurological: No Symptoms Reported Endocrine: No Symptoms Reported Past Bsbeaac-Alcfff-Wfjyim Hx Patient Social History Type Used: Cigarettes 2nd Hand Smoke Exposure: Yes Recent Foreign Travel: No Contact w/Someone Who Travel: No Recent Hopitalizations: No Immunizations Up To Date Tetanus Booster (TDap): Unknown Date of Influenza Vaccine: Nov 15, 2016 Seasonal Allergies Seasonal Allergies: Yes Past Medical History Abdominal Respiratory: Yes COPD Currently Using CPAP: No Currently Using BIPAP: No Cardiac: Yes Neurological: No Concussion Reproductive Disorders: No Sexually Transmitted Disease: No HIV/AIDS: No Genitourinary: No Gastrointestinal: Yes Obstructive Bowel Musculoskeletal: Yes (LEG/FIBULA FRACTURE) Degenerate Disk Disease Endocrine: Yes (HYPOGLYCEMIA) HEENT: No Cancer: No Did You Recieve Any Treatments: No Psychosocial: Yes Suicide Attempts, Depression Integumentary: No Blood Disorders: No Adverse Reaction/Blood Tranf: No Family Medical History Patient reports no known family medical history. No Pertinent Family Hx Physical Exam Vital Signs Vital Signs - First Documented 04/07/18 20:15 Temp 98.0 Pulse 74 Resp 16 B/P (MAP) 160/92 (114) Pulse Ox 98 Capillary Refill : Height, Weight, BMI Height: 5'10.50" Weight: 145lbs. 6.0oz. 65.956696dp; 21.5 BMI Method:Stated General Appearance: WD/WN, no apparent distress HEENT: PERRL/EOMI, normal ENT inspection Neck: non-tender, full range of motion Respiratory: no respiratory distress, no accessory muscle use Gastrointestinal: normal bowel sounds, non tender, soft Extremities: normal range of motion, non-tender Neurologic/Psychiatric: alert, normal mood/affect, oriented x 3 Skin: normal color, warm/dry Progress/Results/Core Measures Suspected Sepsis SIRS Temperature: Pulse: Respiratory Rate: Laboratory Tests 04/07/18 20:23: White Blood Count 15.3H Blood Pressure / Mean: Laboratory Tests 04/07/18 20:23: Creatinine 0.76, Platelet Count 193, Total Bilirubin 0.6 Results/Orders Lab Results Laboratory Tests Test 04/07/18 20:23 04/07/18 21:12 Range/Units White Blood Count 15.3 H 4.3-11.0 10^3/uL Red Blood Count 4.27 L 4.35-5.85 10^6/uL Hemoglobin 13.4 13.3-17.7 G/DL Hematocrit 40 40-54 % Mean Corpuscular Volume 93 80-99 FL Mean Corpuscular Hemoglobin 31 25-34 PG Mean Corpuscular Hemoglobin Concent 34 32-36 G/DL Red Cell Distribution Width 14.3 10.0-14.5 % Platelet Count 193 130-400 10^3/uL Mean Platelet Volume 7.4-10.4 FL Neutrophils (%) (Auto) 62 42-75 % Lymphocytes (%) (Auto) 18 12-44 % Monocytes (%) (Auto) 19 H 0-12 % Eosinophils (%) (Auto) 1 0-10 % Basophils (%) (Auto) 0 0-10 % Neutrophils # (Auto) 9.4 H 1.8-7.8 X 10^3 Lymphocytes # (Auto) 2.8 1.0-4.0 X 10^3 Monocytes # (Auto) 3.0 H 0.0-1.0 X 10^3 Eosinophils # (Auto) 0.1 0.0-0.3 10^3/uL Basophils # (Auto) 0.1 0.0-0.1 10^3/uL Neutrophils % (Manual) 66 % Lymphocytes % (Manual) 18 % Monocytes % (Manual) 12 % Eosinophils % (Manual) 1 % Basophils % (Manual) 0 % Band Neutrophils 0 % Reactive Lymphocytes 3 % Blood Morphology Comment NORMAL Sodium Level 136 135-145 MMOL/L Potassium Level 4.1 3.6-5.0 MMOL/L Chloride Level 103 98-107 MMOL/L Carbon Dioxide Level 24 21-32 MMOL/L Anion Gap 9 5-14 MMOL/L Blood Urea Nitrogen 10 7-18 MG/DL Creatinine 0.76 0.60-1.30 MG/DL Estimat Glomerular Filtration Rate > 60 BUN/Creatinine Ratio 13 Glucose Level 120 H 70-105 MG/DL Calcium Level 8.9 8.5-10.1 MG/DL Corrected Calcium 9.1 8.5-10.1 MG/DL Total Bilirubin 0.6 0.1-1.0 MG/DL Aspartate Amino Transf (AST/SGOT) 43 H 5-34 U/L Alanine Aminotransferase (ALT/SGPT) 56 H 0-55 U/L Alkaline Phosphatase 88 40-136 U/L Total Protein 7.2 6.4-8.2 GM/DL Albumin 3.7 3.2-4.5 GM/DL Urine Color YELLOW Urine Clarity VERY CLOUDY H Urine pH 6.5 5-9 Urine Specific [place] 1.010 L 1.016-1.022 Urine Protein 3+ H NEGATIVE Urine Glucose (UA) NEGATIVE NEGATIVE Urine Ketones NEGATIVE NEGATIVE Urine Nitrite POSITIVE H NEGATIVE Urine Bilirubin NEGATIVE NEGATIVE Urine Urobilinogen NORMAL NORMAL MG/DL Urine Leukocyte Esterase 3+ H NEGATIVE Urine RBC (Auto) 5+ H NEGATIVE Urine RBC 10-25 H /HPF Urine WBC TNTC H /HPF Urine Crystals NONE /LPF Urine Bacteria LARGE H /HPF Urine Casts NONE /LPF Urine Mucus NEGATIVE /LPF Urine Culture Indicated YES Urine Opiates Screen NEGATIVE NEGATIVE Urine Oxycodone Screen NEGATIVE NEGATIVE Urine Methadone Screen NEGATIVE NEGATIVE Urine Propoxyphene Screen NEGATIVE NEGATIVE Urine Barbiturates Screen NEGATIVE NEGATIVE Ur Tricyclic Antidepressants Screen NEGATIVE NEGATIVE Urine Phencyclidine Screen NEGATIVE NEGATIVE Urine Amphetamines Screen POSITIVE H NEGATIVE Urine Methamphetamines Screen POSITIVE H NEGATIVE Urine Benzodiazepines Screen NEGATIVE NEGATIVE Urine Cocaine Screen NEGATIVE NEGATIVE Urine Cannabinoids Screen NEGATIVE NEGATIVE My Orders Orders - KARON CARRILLO FRENCH FOLDER Cbc With Automated Diff (2/28/19 20:17) Comprehensive Metabolic Panel (04/07/18 20:17) Ua Culture If Indicated (04/07/18 20:17) Iv Heplock-Insert (Order) (04/07/18 20:17) Ns Iv 1000 Ml (Sodium Chloride 0.9%) (04/07/18 20:30) Ketorolac Injection (Toradol Injection) (04/07/18 20:30) Phenazopyridine Tablet (Pyridium Tablet) (04/07/18 20:30) Drug Screen Stat (Urine) (04/07/18 20:22) Manual Differential (04/07/18 20:23) Ceftriaxone For Iv Use (Rocephin For I (04/07/18 20:45) Urine Culture (04/07/18 21:12) Medications Given in ED Current Medications Medications Dose Ordered Sig/Chauncey Route Start Time Stop Time Status Last Admin Dose Admin Ceftriaxone Sodium 1000 mg/ Sterile Water 10 ml @ 200 mls/hr ONCE ONCE IV 04/07/18 20:45 04/07/18 20:47 DC 04/07/18 20:58 200 MLS/HR Ketorolac Tromethamine 15 mg ONCE ONCE IVP 04/07/18 20:30 04/07/18 20:31 DC 04/07/18 20:34 15 MG Phenazopyridine HCl 100 mg ONCE ONCE PO 04/07/18 20:30 04/07/18 20:31 DC 04/07/18 20:34 100 MG Vital Signs/I&O 04/07/18 20:15 Temp 98.0 Pulse 74 Resp 16 B/P (MAP) 160/92 (114) Pulse Ox 98 Capillary Refill : Departure Impression Primary Impression: Urinary tract infection Qualified Codes: N30.01 - Acute cystitis with hematuria Disposition: HOME, SELF-CARE Condition: Stable Departure-Patient Inst. Decision time for Depature: 21:36 Referrals: ROSA DORAN (PCP/Family) Primary Care Physician Patient Instructions: OUTPT SUBSTANCE ABUSE RESOURCE, Urinary Tract Infection, Adult (DC) Add. Discharge Instructions: 1. Return To ER for any concerns 2. I sent the antibiotic to [facility] [employer]. Start this tomorrow. Scripts Sulfamethoxazole/Trimethoprim (Bactrim Ds Tablet) 1 Each Tablet 1 EACH PO BID, #14 TAB Prov: KARON CARRILLO FRENCH FOLDER 04/07/18 KARON CARRILLO APRN Apr 07, 2018 20:22
[2018-04-07 20:29] LABS: BASOPHILS # (AUTO) 0.1 10^3/uL (0.0-0.1); BASOPHILS % (AUTO) 0 % (0-10); EOSINOPHILS # (AUTO) 0.1 10^3/uL (0.0-0.3); EOSINOPHILS % (AUTO) 1 % (0-10); HEMATOCRIT 40 % (40-54); HEMOGLOBIN 13.4 G/DL (13.3-17.7); LYMPHOCYTES # (AUTO) 2.8 X 10^3 (1.0-4.0); LYMPHOCYTES % (AUTO) 18 % (12-44); MEAN CORPUSCULAR HEMOGLOBIN 31 PG (25-34); MEAN CORPUSCULAR HGB CONC 34 G/DL (32-36); MEAN CORPUSCULAR VOLUME 93 FL (80-99); MONOCYTES % (AUTO) 19 % (0-12); NEUTROPHILS # (AUTO) 9.4 X 10^3 (1.8-7.8); NEUTROPHILS % (AUTO) 62 % (42-75); PLATELET COUNT 193 10^3/uL (130-400); RED CELL DISTRIBUTION WIDTH 14.3 % (10.0-14.5); WHITE BLOOD COUNT 15.3 10^3/uL (4.3-11.0)
[2018-04-07] MEDS ORDERED: NS IV 1000 ML 1,000 ML IV SCH (20:30)
[2018-04-07] MEDS ORDERED: KETOROLAC 30 MG/ML VIAL IVP ONE (20:30)
[2018-04-07] MEDS ORDERED: PHENAZOPYRIDINE 100 MG (PYRIDIUM) TABLET PO ONE (20:30)
[2018-04-07] MEDS ORDERED: cefTRIAXone FOR IV USE 1,000 MG in WATER (STERILE) FOR INJECTION 10 ML IV ONE (20:45)
[2018-04-07 20:49] LABS: ALANINE AMINOTRANSFERASE 56 U/L (0-55); ALBUMIN 3.7 GM/DL (3.2-4.5); ALKALINE PHOSPHATASE 88 U/L (40-136); BILIRUBIN,TOTAL 0.6 MG/DL (0.1-1.0); BUN/CREATININE RATIO 13; CALCIUM 8.9 MG/DL (8.5-10.1); CARBON DIOXIDE 24 MMOL/L (21-32); CREATININE SERUM 0.76 MG/DL (0.60-1.30); GFR ESTIMATED > 60; GLUCOSE 120 MG/DL (70-105); TOTAL PROTEIN 7.2 GM/DL (6.4-8.2)
[2018-04-07 20:57] LABS: BAND NEUTROPHILS 0 %; BASOPHILS % (MANUAL) 0 %; EOSINOPHILS % (MANUAL) 1 %; LYMPHOCYTES % (MANUAL) 18 %; MONOCYTES % (MANUAL) 12 %; NEUTROPHILS % (MANUAL) 66 %; RBC MORPH NORMAL; REACTIVE LYMPHOCYTES 3 %
[2018-04-07 21:07] LABS: CHLORIDE 103 MMOL/L (98-107); POTASSIUM 4.1 MMOL/L (3.6-5.0); SODIUM 136 MMOL/L (135-145)
[2018-04-07 21:18] LABS: BILIRUBIN,URINE NEGATIVE (NEGATIVE); CLARITY,URINE VERY CLOUDY; COLOR,URINE YELLOW; GLUCOSE, URINE (UA) NEGATIVE (NEGATIVE); KETONES,URINE NEGATIVE (NEGATIVE); LEUKOCYTE ESTERASE ,URINE 3+ (NEGATIVE); NITRITE,URINE POSITIVE (NEGATIVE); PH,URINE 6.5 (5-9); PROTEIN,URINE 3+ (NEGATIVE); UROBILINOGEN,URINE NORMAL (NORMAL)
[2018-04-07 21:26] LABS: BACTERIA,URINE LARGE /HPF; WBC,URINE TNTC /HPF
[2018-04-07 21:35] LABS: AMPHETAMINE SCREEN, URINE POSITIVE (NEGATIVE); BARBITURATE SCREEN URINE NEGATIVE (NEGATIVE); BENZODIAZEPINES SCREEN URINE NEGATIVE (NEGATIVE); CANNABINOID SCREEN, URINE NEGATIVE (NEGATIVE); COCAINE SCREEN URINE NEGATIVE (NEGATIVE); METHADONE STAT NEGATIVE (NEGATIVE); METHAMPHETAMINE SCREEN URINE S POSITIVE (NEGATIVE); OPIATE SCREEN URINE NEGATIVE (NEGATIVE); OXYCODONE STAT NEGATIVE (NEGATIVE); PROPOXYPHENE STAT NEGATIVE (NEGATIVE); TRICYCLIC ANTIDEPRESSANTS SCRE NEGATIVE (NEGATIVE)
[2018-04-07] MEDS ORDERED: SULF1TAB35 PO (21:38)
[2018-04-07] MEDS ORDERED: RX-TRIMETH/SULFA. 160-800 MG (BACTRIM DS) TAB PPK#2 PO STA (21:39)
[2018-04-07 21:48] VITALS: BP 160/92
== END 2018-04-07 21:48 | disposition home or self-care (01) ==
LOC: EDUNIT# 20:02 → ER 20:04
DX: J06.9 Acute upper respiratory infection, unspecified (principal); J44.9 Chronic obstructive pulmonary disease, unspecified; F32.9 Major depressive disorder, single episode, unspecified; Z91.5 Personal history of self-harm; Z87.19 Personal history of other diseases of the digestive system; Z88.0 Allergy status to penicillin; Z77.22 Contact with and (suspected) exposure to environmental tobacco smoke (acute) (chronic)
CPT/HCPCS: 36415; 80053; 80306; 81000; 85007; 85027; 87077; 87088; 87186; 96361; 96374; 96375; 99284

== ENCOUNTER 2018-05-09 01:19 | Emergency (ER) | payer MEDICAID ==
[~2018-05-09] VITALS: Ht 177.8 cm; Wt 68.0 kg
--- OUTSIDE RECORDS SUMMARY | 2018-05-09 01:25 | XMS REPORT ---
Author Author Migration, Doctor Organization [facility] Address Unknown Phone Unavailable Care Team Providers Care Supervisor [employer] Name Role Phone Migration, Doctor Unavailable Unavailable PROBLEMS Type Condition ICD9-CM Code [id number] Code Onset Dates Condition Status SNOMED Code Problem Schizoaffective disorder, depressive type F25.1 Active 35753249 Problem Attention deficit hyperactivity disorder (ADHD), predominantly inattentive type F90.0 Active 25325565 Problem Low back pain M54.5 Active 909814466 Problem Panic disorder F41.0 Active 535990069 Problem Depressive disorder, not elsewhere classified F32.9 Active 22295743 Problem Unspecified psychosis F29 Active 68827504 Problem Sebaceous cyst of penis N48.89 Active [id number] ALLERGIES No Information ENCOUNTERS Encounter Location Date Diagnosis [place] [address] [address] Apr, [place] [address] [address] Apr, Small bowel obstruction K56.609 [place] [address] [address] Mar, 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 [place] [address] [place] [id number] [place] [address]- 1402 Mar, Small bowel obstruction K56.609 [place] [address] [address] Feb, Small bowel obstruction K56.609 [place] [address] [address] Jan, [place] [address] [address] Jan, Small bowel obstruction K56.609 [facility] [address] [place] [address] 50168- 1692 Dec, Small bowel obstruction K56.609 [facility] [address] [place] [id number] [place] [address] 39453- 2113 Nov, Acute epididymitis N45.1 [facility] [id number] [place] [address] 58647- 2850 Nov, [facility] [address] [place] [id number] [place] [address] 40590- 5453 Nov, [facility] [address] [place] [id number] [place] [address] 82810- 0724 Oct, Acute epididymitis N45.1 [facility] [id number] [place] [address] 88604- 4201 Sep, Acute epididymitis N45.1 [facility] [address] [place] [id number] [place] [address] 91459- 7338 Aug, Acute epididymitis N45.1 [facility] [address] [place] [id number] [place] [address] 92555- 8678 Jul, Acute epididymitis N45.1 [facility] [id number] [place] [address] 48409- 8314 Jul, Acute epididymitis N45.1 [facility] [id number] [place] [address] 47319- 3625 June, Lipoma of torso D17.1 [facility] [address] [place] [address] 77221- 0031 June, Epididymitis N45.1 and Low back pain M54.5 [facility] [address] [place] [address] 84834- 4135 June, Acute epididymitis N45.1 [facility] [address] [place] [address] 93707- 5543 May, Acute epididymitis N45.1 [facility] [address] [address] May, Acute epididymitis N45.1 [facility] [id number] [place] [address] 883461- 0716 Apr, Acute epididymitis N45.1 [facility] [address] [address] Apr, Acute epididymitis N45.1 [facility] [address] [place] [id number] [place] [address] 97057- 7806 Mar, [facility] [address] [place] [id number] [place] [address] 45841- 7980 Mar, Panic disorder F41.0 [facility] [address] [place] [id number] [place] [address] 18306- 3887 Mar, Acute epididymitis N45.1 ; Attention deficit hyperactivity disorder (ADHD), predominantly inattentive type F90.0 and Sebaceous cyst of penis N48.89 [facility] [address] [address] Mar, [facility] [address] [address] 4[address] Feb, [facility] [address] [address] Feb, [facility] [address] [address] Jan, [facility] [address] [address] Jan, [facility] [address] [place] [id number] [place] [address] 136836- 6186 Dec, [facility] [address] [address] Nov, [facility] [address] [place] [id number] [place] [address] 01680- 3582 Oct, [facility] [address] [place] [id number] [place] [address] 76212- 6948 Sep, [facility] [address] [place] [id number] [place] [address] 44774- 2886 Aug, [facility] [address] [place] [id number] [place] [address] 46312- 4406 Jul, Schizoaffective disorder, depressive type F25.1 [facility] [address] [place] [id number] [place] [address] 00959- 0978 June, Schizoaffective disorder, depressive type F25.1 ; Panic disorder F41.0 and Lumbago with sciatica, right side M54.41 [facility] [address] [place] [id number] [place] [address] 91970- 5353 June, Depressive disorder, not elsewhere classified F32.9 ; Unspecified psychosis F29 and 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 [facility] [address] [place] [id number] [place] [address] 47655- 1997 May, [facility] [address] [place] [id number] [place] [address] 06464- 5200 May, [facility] [address] [place] [id number] [place] [address] 15846- 7397 May, Lumbar neuritis M54.16 ; Thoracic neuritis M54.14 and Attention deficit hyperactivity disorder (ADHD), predominantly inattentive type F90.0 [facility] [address] [place] [id number] [place] [address] 03888- 8763 Apr, ADHD (attention deficit hyperactivity disorder), inattentive type F90.0 [facility] [address] [place] [id number] [place] [address] 21432- 7527 Mar, ADHD (attention deficit hyperactivity disorder), inattentive type F90.0 and Back pain M54.9 [facility] [address] [place] [id number] [place] [address] 22794- 1423 Mar, Attention deficit hyperactivity disorder (ADHD), predominantly inattentive type F90.0 [facility] [address] [place] [address] 14894- 1973 Feb, Schizoaffective disorder, depressive type F25.1 and Panic disorder F41.0 [facility] [address] [place] [id number] [place] [address] 14101- 6190 Feb, Attention deficit hyperactivity disorder (ADHD), predominantly inattentive type F90.0 ; Low back pain M54.5 and Sciatica, unspecified side M54.30 [place] [address] [place] [id number] [place] [address] 87667- 5445 Jan, [facility] [address] [place] [id number] [place] [address] 55699- 1102 Jan, Schizoaffective disorder, depressive type F25.1 and Panic disorder F41.0 [facility] [address] [place] [id number] [place] [address] 18955- 9697 Jan, Mood disorder F39 ; Bilateral low back pain with sciatica, sciatica laterality unspecified M54.40 ; ADHD (attention deficit hyperactivity disorder) F90.9 and Tobacco abuse Z72.0 [facility] [address] [place] [id number] [place] [address] 94451- 4637 Dec, Low back pain M54.5 ; Sciatica, unspecified side M54.30 ; ADHD (attention deficit hyperactivity disorder), inattentive type F90.0 and Mood disorder F39 [facility] [address] [place] [address] 89355- 8848 May, Lateral malleolar fracture 824.2 [facility] [address] [place] [id number] [place] [address] 48003- 9478 14 May, 2014 [facility] [address] [place] [id number] [place] [address] 30120- 9157 May, [facility] [address] [place] [id number] [place] [address] 16808- 9534 Apr, [facility] [place] [facility] [address] [id number] [place] [address]- [address] Apr, [facility] [address] [place] [id number] Mar, [facility] [place] [facility] [address] [id number] [place] [address]- 1576 Mar, [facility] [place] [facility] [address] [id number] [place] [address]- 4262 Jan, [facility] [place] [facility] [address] [id number] [place] [address]- 3304 Jan, [facility] [place] [facility] [address] [id number] [place] [address]- 6622 Nov, [facility] [place] [facility] [address] [id number] [place] [address]- 9436 Nov, [facility] [place] [facility] [address] [id number] [place] [address]- 7100 Oct, [facility] [place] [facility] [address] [id number] [place] [address]- 6153 Oct, [facility] [place] [facility] [address] [id number] [place] [address]- 9661 Apr, [facility] [place] [facility] [address] [id number] [place] [address]- 5661 Apr, [facility] [address] [place] [id number] Apr, [facility] [place] [facility] [address] [id number] [place] [address]- 0391 Apr, [facility] [place] [facility] [address] [id number] [place] [address]- 7121 Nov, [facility] [place] [facility] [address] [id number] [place] [address]- 4941 Nov, [facility] [place] [facility] [address] [id number] [place] [address]- 1920 Nov, [facility] [address] [facility] [id number] [place] [address]- 7009 Nov, IMMUNIZATIONS No Known Immunizations SOCIAL HISTORY Never Assessed REASON FOR VISIT EMR-[facility] PLAN OF CARE VITAL SIGNS MEDICATIONS Medication Instructions Dosage Frequency Start Date End Date Duration Status Hydrocodone-Acetaminophen 5-325 mg 1 Tablet by Oral route every 4 hours Apr, Active tramadol 50 mg take 1 tablet by Oral route every 6 hours as needed PRN pain Apr, Active RESULTS No Results PROCEDURES No Known [...]
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
[2018-05-09] MEDS ORDERED: RX-NAPROXEN (NAPROSYN) 250 MG TAB PPK#4 PO STA (01:54)
[2018-05-09] MEDS ORDERED: RX-TRIMETH/SULFA. 160-800 MG (BACTRIM DS) TAB PPK#2 PO STA (01:54)
[2018-05-09] MEDS ORDERED: RX-HYDROXYZINE PAMOATE 25 MG CAP #4 PO STA (01:54)
[2018-05-09] MEDS ORDERED: SULF1TAB35 PO (01:58)
[2018-05-09] MEDS ORDERED: HYDR50CA PO (01:58)
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
[2018-05-09 02:28] VITALS: BP 156/88
== END 2018-05-09 02:28 | disposition home or self-care (01) ==
LOC: EDUNIT# 01:19 → ER 01:21
DX: M79.89 Other specified soft tissue disorders (principal); L29.9 Pruritus, unspecified; F32.9 Major depressive disorder, single episode, unspecified; J44.9 Chronic obstructive pulmonary disease, unspecified; I10 Essential (primary) hypertension; F17.210 Nicotine dependence, cigarettes, uncomplicated; Z91.5 Personal history of self-harm; Z88.0 Allergy status to penicillin; Z87.19 Personal history of other diseases of the digestive system; Z87.448 Personal history of other diseases of urinary system; Z90.81 Acquired absence of spleen
CPT/HCPCS: 99283

== ENCOUNTER 2022-01-14 17:44 | Emergency (ER) | payer MEDICAID ==
[~2022-01-14] VITALS: Ht 177.8 cm; Wt 68.0 kg
[~2022-01-14 17:44] MED LIST changes: -DIAZ5TAB3 PO; +DIAZ5TAB49 PO; +HYDR50CA PO; -SULF1TAB35 PO; +SULF1TAB38 PO; -TRAM50TA2 PO; +TRM50T PO
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
[2022-01-14 19:00] LABS: BILIRUBIN,URINE NEGATIVE (NEGATIVE); CLARITY,URINE CLEAR; COLOR,URINE YELLOW; GLUCOSE, URINE (UA) NEGATIVE (NEGATIVE); KETONES,URINE NEGATIVE (NEGATIVE); LEUKOCYTE ESTERASE ,URINE NEGATIVE (NEGATIVE); NITRITE,URINE NEGATIVE (NEGATIVE); PH,URINE 5.5 (5-9); PROTEIN,URINE TRACE (NEGATIVE)
[2022-01-14] MEDS ORDERED: ACETAMINOPHEN 500 MG TAB (TYLENOL) PO ONE (19:00)
[2022-01-14] MEDS ORDERED: IBUPROFEN TABLET 200 MG TAB PO ONE (19:00)
[2022-01-14 19:24] LABS: BACTERIA,URINE TRACE /HPF; RBC,URINE RARE /HPF
[2022-01-14 19:41] VITALS: BP 130/74
== END 2022-01-14 19:41 | disposition home or self-care (01) ==
LOC: EDUNIT# 17:44 → ER 17:46
DX: J10.1 Influenza due to other identified influenza virus with other respiratory manifestations (principal); F17.200 Nicotine dependence, unspecified, uncomplicated; Z20.822 Contact with and (suspected) exposure to COVID-19
CPT/HCPCS: 36415; 81000; 87491; 87591; 87636; 99283

== ENCOUNTER 2022-05-28 20:36 | Emergency (ER) | payer MEDICAID ==
[~2022-05-28] VITALS: Ht 177 cm; Wt 80.0 kg
--- NOTE | 2022-05-28 21:45 | Diagnostic Imaging Report ---
INDICATION: Right 5th finger injury. FINDINGS: Three views of the right 5th finger show no fracture or dislocation. IMPRESSION: Negative right 5th finger. Dictated by: Dictated on workstation # [id number]
[2022-05-28] MEDS ORDERED: LIDOCAINE 1% INJ 10 ML VIAL INJ ONE (22:15)
[2022-05-28] MEDS ORDERED: LIDOCAINE 1% INJ 20 ML VIAL ONE (22:17)
[2022-05-28] MEDS ORDERED: CEPH500T PO (22:53)
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
[2022-05-28] MEDS ORDERED: CEPHALEXIN 250 MG (KEFLEX) CAP PO SCH (23:00)
[2022-05-28 23:12] VITALS: BP 166/99
== END 2022-05-28 23:12 | disposition home or self-care (01) ==
LOC: EDUNIT# 20:36 → ER 20:38
DX: S61.210A Laceration without foreign body of right index finger without damage to nail, initial encounter (principal); F17.210 Nicotine dependence, cigarettes, uncomplicated; Z88.0 Allergy status to penicillin; Z28.310 Unvaccinated for COVID-19; W23.0XXA Caught, crushed, jammed, or pinched between moving objects, initial encounter
CPT/HCPCS: 12031; 73130

== ENCOUNTER 2022-07-05 23:41 | Emergency (ER) | payer MEDICAID ==
[~2022-07-05] VITALS: Ht 177 cm; Wt 72.0 kg
[~2022-07-05 23:41] MED LIST changes: +CEPH500T PO
[2022-07-05 23:49] VITALS: BP 156/91
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
[2022-07-06] MEDS ORDERED: cefTRIAXone 1,000 MG VIAL (for IV or IM) IM ONE
[2022-07-06] MEDS ORDERED: LIDOCAINE 1% INJ 20 ML VIAL INJ ONE
[2022-07-06] MEDS ORDERED: TETANUS,DIPTH,PERTUSS P/F (BOOSTRIX) 0.5 ML VIAL IM ONE
[2022-07-06] MEDS ORDERED: RX-MUPIROCIN (BACTROBAN) 2% OINT 22 GM TUBE TOP STA (00:01)
[2022-07-06] MEDS ORDERED: CLIN-144 PO (01:32)
[2022-07-06] MEDS ORDERED: RX-CLINDAMYCIN 150 MG (CLEOCIN) CAP PPK#4 PO STA ×2 (01:32→01:37)
[2022-07-06] MEDS ORDERED: NAPR500T8 PO (01:32)
[2022-07-06] MEDS ORDERED: RX-NAPROXEN (NAPROSYN) 250 MG TAB PPK#4 PO STA (01:32)
[2022-07-06] MEDS ORDERED: MUPI22OI2 TP (01:32)
[2022-07-06] MEDS ORDERED: RX-CLINDAMYCIN 150 MG (CLEOCIN) CAP PPK#4 PO ONE (01:37)
--- NOTE | 2022-07-06 06:36 | Diagnostic Imaging Report ---
PROCEDURE: CT maxillofacial without contrast. TECHNIQUE: Multiple contiguous axial images were obtained through the facial bones without the use of intravenous contrast. Auto Exposure Controls were utilized during the CT exam to meet ALARA standards for radiation dose reduction. INDICATION: Left facial pain and swelling. COMPARISON: None. DISCUSSION: Diffuse soft tissue swelling throughout the left cheek extending from just below the left orbit and primarily along the lateral edge of the nose. Multiple dental caries and periapical lucencies are noted. There is a large bony defect extending from the central maxilla into the left nasal passage. There is significant adjacent soft tissue swelling. Infection may be odontogenic in nature. There is no subperiosteal abscess or other drainable fluid collection identified. Polypoid mucosal thickening noted within the left maxillary sinus. No air-fluid level. The remainder of the sinuses and mastoid air cells are well-aerated. Orbits appear symmetrical. Visualized intracranial contents are unremarkable. IMPRESSION: 1. Significant soft tissue swelling along the lateral aspect of the left nose. This is likely odontogenic in nature as multiple periapical lucencies and dental caries are present. There is a large osseous defect within the central maxilla which appears chronic and may be infectious in nature. No drainable fluid identified. Dictated by: Dictated on workstation # [id number]
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
== END 2022-07-06 01:39 | disposition home or self-care (01) ==
LOC: EDUNIT# 23:41 → ER 23:44
DX: S92.421A Displaced fracture of distal phalanx of right great toe, initial encounter for closed fracture (principal); S92.531A Displaced fracture of distal phalanx of right lesser toe(s), initial encounter for closed fracture; L03.211 Cellulitis of face; K02.9 Dental caries, unspecified; K04.7 Periapical abscess without sinus; F90.9 Attention-deficit hyperactivity disorder, unspecified type; F17.210 Nicotine dependence, cigarettes, uncomplicated; Z23 Encounter for immunization; Z88.0 Allergy status to penicillin; Z79.899 Other long term (current) drug therapy; W20.8XXA Other cause of strike by thrown, projected or falling object, initial encounter
CPT/HCPCS: 70486; 73630; 90715